=== PATIENT | female | born 1945 | race Caucasian/White ===

== ENCOUNTER 2018-02-25 16:21 | Inpatient (IN) ==
[2018-02-25] MEDS ORDERED: *HR* OxyCODONE Immed Rel 5 MG TABLET PO PRN (21:25)
[2018-02-25] MEDS ORDERED: Naloxone 0.4 MG/ML INJ IVP PRN (21:25)
[2018-02-25] MEDS ORDERED: Acetaminophen 325 MG TABLET PO PRN (21:25)
[2018-02-25] MEDS ORDERED: *HR* HYDROcodone/Acet 5/325 mg TABLET PO PRN (21:25)
[2018-02-25] MEDS: 0.9 % Sodium Chloride 1,000 ML IVC SCH (21:58)
--- NOTE | 2018-02-25 22:19 | Internal Med History&Physical ---
Date of Encounter: 02/25/18 Time of Encounter: 22:14 Internal Medicine - H&P: HPI Chief complaint: SOB, Fever, chills Admitted From: Emergency Dept Plans for Post Hospital Care: Home History of present illness: Ms. Deng is a 72 year old female with known PMH HTN, HLD, GERD, former smoker and COPD pt presented to [facility] ER with fever, chills, SOB and Rt side pleurisy chest pain from last 4 days. She had further work up done there which showed pneumonia and pt was transferred to our hospital for further care. Pt states she is feeling little better now , still having Rt side chest pain. Still has cough with yellowish expectoration. Past Med Surg Social Fam HX - Past Medical History Medical history: hyperlipidemia, hypertension, myocardial infarction, thyroid disease Psychiatric history: no psych history - Past Surgical History Surgical History: angioplasty/stent - Social History Smoking Status: Former smoker Alcohol use: none Drug use: none - Family History Mother Living Status: Hx Family Neurologic Disorders: Yes (CVA) Father Living Status: Cause of : brain bleed Hx Family Cancer: Yes (colon) Internal Medicine - H&P: Meds 3 Allergy/AdvReac Type Severity Reaction Status Date / Time No Known Allergies Allergy Verified 02/25/18 19:15 All Systems PM: A 10-system review of systems was performed and is negative for pertinent findings except as documented above in the HPI. Review of systems: All the systems are reviewed everything is benign except the systems and symptoms I mentioned in the history of present illness - Constitutional Vitals: Temp Pulse Resp BP Pulse Ox 97.6 F 80 16 109/61 97 02/25/18 19:22 02/25/18 19:22 02/25/18 19:22 02/25/18 19:22 02/25/18 19:22 General appearance: Present: A&O X 3, no acute distress, answers questions appropriately - Head Head exam: Present: atraumatic, normal inspection - Neck Neck exam general surgery: Present: supple - Respiratory Respiratory exam: Present: decreased breath sounds. Absent: rales, respiratory distress, rhonchi, wheezes - Cardiovascular Cardiovascular exam: Present: +S1, +S2. Absent: tachycardia - GI/Abdominal GI/Abdominal exam: Present: normal bowel sounds, soft. Absent: rebound, rigid, tenderness - Extremities Exam Extremities exam: Absent: calf tenderness, pedal edema, tenderness - Back Exam Back exam: Absent: CVA tenderness (L), CVA tenderness (R) - Neurological Exam Neurological exam: Present: alert, oriented X3 - Psychiatric Psychiatric exam: Present: normal affect, normal mood - Skin Skin exam: Absent: rash - Assessment and plan (1) Acute respiratory failure with hypoxia Current Visit: Yes Status: Acute Assessment and plan: Admit the pt into [facility] Surg Reviewed labs and ER records from [facility] unfortunately I do not have CXR film or official report WBC- 12.5 BUN/Cr: 28/.54 Started on Duoneb as BELEN Also started her on IV systemic steroids at low-dose I will check respiratory viral panel, step pneumonia, Legionella and sputum culture also started on empirical antibiotic with Levaquin (2) Pneumonia Current Visit: Yes Status: Acute Assessment and plan: Will try to obtain chest x-ray films from [facility] assuming Rt side PNA due to Rt pleurisy chest pain suspecting bacterial pneumonia continue empirical antibiotic Levaquin Qualifiers: Pneumonia type: due to unspecified organism Laterality: right Lung location: unspecified part of lung Qualified Code(s): J18.9 - Pneumonia, unspecified organism (3) HTN (hypertension) Current Visit: Yes Status: Acute Assessment and plan: Stable blood pressure resumed home medications Qualifiers: Hypertension type: essential hypertension Qualified Code(s): I10 - Essential (primary) hypertension (4) Hypothyroidism (acquired) Current Visit: Yes Status: Acute Assessment and plan: Resumed home dose of levothyroxine (5) HLD (hyperlipidemia) Current Visit: Yes Status: Acute Assessment and plan: Resumed home dose of statin Qualifiers: Hyperlipidemia type: unspecified Qualified Code(s): E78.5 - Hyperlipidemia , unspecified (6) Former smoker Current Visit: Yes Status: Acute Assessment and plan: Quit smoking 4 months ago (7) GERD (gastroesophageal reflux disease) Current Visit: Yes Status: Acute Assessment and plan: resumed home med Ranitidine Qualifiers: Esophagitis presence: without esophagitis Qualified Code(s): K21.9 - Gastro -esophageal reflux disease without esophagitis - Time Spent With Patient Total time spent is greater than 50% in coordination of care (as documented) at patient's floor/unit and/or counseling patient:
[2018-02-25] MEDS: MethylPREDNISolone 40 MG/ML VIAL IVP SCH (23:02)
[2018-02-25 23:44] LABS: Adenovirus Not Detected (Not Detect); Bordetella Pertussis Not Detected (Not Detect); Chlamydophila pneumoniae Not Detected (Not Detect); Coronavirus 229E Not Detected (Not Detect); Coronavirus HKU1 Not Detected (Not Detect); Coronavirus NL63 Not Detected (Not Detect); Coronavirus OC43 Not Detected (Not Detect); Human Metapneumovirus Not Detected (Not Detect); Human Rhinovirus/Enterovirus Not Detected (Not Detect); Influenza A Subtype 2009 H1 Not Detected (Not Detect); Influenza A Untypeable Not Detected (Not Detect); Influenza B Not Detected (Not Detect); Mycoplasma pneumoniae Not Detected (Not Detect); Parainfluenza Virus 1 Not Detected (Not Detect); Parainfluenza Virus 2 Not Detected (Not Detect); Parainfluenza Virus 3 Not Detected (Not Detect); Parainfluenza Virus 4 Not Detected (Not Detect); Respiratory Syncytial Virus Not Detected (Not Detect)
[2018-02-26] MEDS: Ipratropium/Albuterol Neb 3 ML IH SCH ×7 (04:31→23:49)
[2018-02-26] MEDS: *HR* Heparin 5,000 UNIT/ML VIAL SQ SCH ×2 (04:59→17:07)
[2018-02-26] MEDS: 0.9 % Sodium Chloride 1,000 ML IVC SCH ×2 (05:03→17:07)
[2018-02-26 06:01] LABS: Basophils % 0.1 %; Hematocrit 34.4 % (35.3-44.9); Hemoglobin 11.3 g/dL (11.5-15.4); Immature Granulocytes % 0.3 % (0-4); Lymphocytes # 1.1 K/mcL (0.6-4.6); Lymphocytes % 11.7 %; Mean Corpuscular HGB Conc 32.8 g/dL (31.6-35.5); Mean Corpuscular Hemoglobin 30.1 pg (28.0-33.3); Mean Corpuscular Volume 91.7 fL (83.0-100.0); Mean Platelet Volume 9.4 fL (9.4-12.4); Monocytes # 0.1 K/mcL (0.0-1.3); Monocytes % 1.2 %; Neutrophils # 7.9 K/mcL (1.6-8.9); Platelet Count 234 K/mcL (140-400); Red Blood Count 3.75 M/mcL (3.82-4.97); Red Cell Distribution Width 13.3 % (11.5-14.5); Segmented Neutrophils % 86.7 %
[2018-02-26 06:21] LABS: BUN/Creatinine Ratio 24 (6-26); Blood Urea Nitrogen 25 mg/dL (8-23); Calcium 8.8 mg/dL (8.6-10.3); Carbon Dioxide 20 mEq/L (23-29); Chloride 104 mEq/L (98-107); Chol/HDL Ratio 5.1 (0-4.9); Cholesterol 147 mg/dL (< 200); Glucose 184 mg/dL (70-105); HDL Cholesterol 29 mg/dL (40-59); LDL Cholesterol,Calculated 103 mg/dL (0-99); Osmolality,Calculated 279 (280-300); Sodium 130 mEq/L (136-145); Triglycerides 77 mg/dL (< 150); eGFR For African Americans > 60 (> 60); eGFR For Non-African Americans 51 (> 60)
[2018-02-26] MEDS ORDERED: Levofloxacin 750 MG/150 ML 750 MG/150 ML BAG IVPB SCH (09:00)
[2018-02-26] MEDS: MethylPREDNISolone 40 MG/ML VIAL IVP SCH ×3 (09:59→23:33)
--- NOTE | 2018-02-26 16:23 | Internal Med Progress Note ---
Date of Encounter: 02/26/18 Time of Encounter: 16:19 - Assessment and plan (1) Pneumonia Current Visit: Yes Status: Acute Assessment and plan: presented to OSH with shortness of breath, fever, chills. Chest CTA with diffuse RLL pneumonia. Respiratory PCR, urinary antigens negative. Symptoms improved with IV ATB and steroids. Continue IV Levaquin:, Steroids and bronchodilators. Sputum culture pending. De-escalate ATB as clinically improves and/or cultures finalize. Will need 2 month follow-up after pneumonia treated to confirm resolution of right lower lobe pneumonia Qualifiers: Pneumonia type: due to unspecified organism Laterality: right Lung location: unspecified part of lung Qualified Code(s): J18.9 - Pneumonia, unspecified organism (2) Acute respiratory failure with hypoxia Current Visit: Yes Status: Acute Assessment and plan: secondary to pneumonia. Chest CTA without evidence of pulmonary embolism. Does not wear oxygen at home. Continue treating pneumonia as noted above. Wean O2 as able. (3) Hilar mass Current Visit: Yes Status: Acute Assessment and plan: Chest CTA with area of infrahilar consolidation which has a masslike appearance measuring approximately 3.[address] once acute pneumonia resolved. (4) BOGDAN (acute kidney injury) Current Visit: Yes Status: Acute Assessment and plan: Cr 1.5; no known history of kidney disease. Suspect prerenal with decreased oral intake. Renal function normalized with IV fluids. Monitor repeat renal function especially with IV dye used with chest CTA. (5) HTN (hypertension) Current Visit: Yes Status: Acute Assessment and plan: per hx. BP controlled. Cont home BP medication. Qualifiers: Hypertension type: essential hypertension Qualified Code(s): I10 - Essential (primary) hypertension (6) Hypothyroidism (acquired) Current Visit: Yes Status: Acute Assessment and plan: per hx. Cont home levothyroxine (7) HLD (hyperlipidemia) Current Visit: Yes Status: Acute Assessment and plan: per hx. Cont home statin Qualifiers: Hyperlipidemia type: unspecified Qualified Code(s): E78.5 - Hyperlipidemia , unspecified (8) Former smoker Current Visit: Yes Status: Acute Assessment and plan: Quit smoking 4 months ago (9) GERD (gastroesophageal reflux disease) Current Visit: Yes Status: Acute Assessment and plan: per hx. Cont home Zantac Qualifiers: Esophagitis presence: without esophagitis Qualified Code(s): K21.9 - Gastro -esophageal reflux disease without esophagitis (10) DVT prophylaxis Current Visit: Yes Status: Acute Assessment and plan: heparin - Time Spent With Patient Total time spent is greater than 50% in coordination of care (as documented) at patient's floor/unit and/or counseling patient: - Subjective Interval history: Seen and examined at bedside. Patient is new to me, information obtained from chart review and patient report. Still with some shortness of breath but says she is overall significantly improved. No fevers or chills. Has a productive cough at times. Denies chest pain. - Constitutional Vitals: Temp Pulse Resp BP Pulse Ox 97.7 F 91 14 125/67 100 02/26/18 16:09 02/26/18 16:09 02/26/18 16:09 02/26/18 16:09 02/26/18 16:09 General appearance: Present: A&O X 3, no acute distress, answers questions appropriately - Head Head exam: Present: atraumatic, normocephalic - Eye Eye exam: Present: PERRL, conjuntiva pink, sclera anicteric Pupils: Present: PERRL - Neck Neck exam general surgery: Present: supple, trachea midline. Absent: lymphadenopathy - Respiratory Respiratory exam: Present: CTAB, rhonchi. Absent: accessory muscle use, rales, wheezes - Cardiovascular Cardiovascular exam: Present: RRR, +S1, +S2. Absent: diastolic murmur, gallop, rubs, systolic murmur - GI/Abdominal GI/Abdominal exam: Present: normal bowel sounds, soft, no peritoneal signs. Absent: distended, tenderness - Extremities Exam Extremities exam: Present: warm, radial pulses palpable and symmetrical. Absent : calf tenderness, cyanotic, pedal edema - Neurological Exam Neurological exam: Present: CN II-XII intact, oriented X3, no focal deficits. Absent: pronater drift, facial droop, speech deficit - Skin Skin exam: Present: dry, intact Internal Medicine: Result - Labs CBC & Chem 7: 02/26/18 05:45 02/26/18 05:45 Labs: Short CBC 02/26/18 Range/Units 05:45 WBC 9.1 (4.3-11.1) K/mcL Hgb 11.3 L (11.5-15.4) g/dL Hct 34.4 L (35.3-44.9) % Plt Count 234 (140-400) K/mcL Neutrophils # 7.9 (1.6-8.9) K/mcL BMP 02/26/18 05:45 Sodium 130 L Potassium 4.0 Chloride 104 Carbon Dioxide 20 L BUN 25 H Creatinine 1.06 Glucose 184 H Calcium 8.8 - Impressions Impressions Chest CTA 02/26/18 11:46 IMPRESSION: 1. No evidence for acute pulmonary embolism. 2. Patchy consolidation and ground-glass attenuation representing combination of pneumonia and atelectasis noted in the right lower lobe diffusely. Medially in the infrahilar region, there is a component of the consolidation which has a mass-like appearance, measuring about 3.3 cm. Review on follow-up studies. RECOMMENDATIONS: Recommend two-month follow-up after treatment to confirm resolution of right lower lobe findings. D/ / 02/26/2018 14:18:38 Jeremias Toledo MD / [facility] Interpreting Provider: Jeremias Toledo MD Consult Discharge Plan - Plan Referrals: Hebert Ryan DO [Primary Care Provider] - Mounika Townsend MD [Family Provider] -
[2018-02-27] MEDS: Ipratropium/Albuterol Neb 3 ML IH SCH ×6 (03:29→23:23)
[2018-02-27] MEDS: 0.9 % Sodium Chloride 1,000 ML IVC SCH ×2 (06:06→20:09)
[2018-02-27] MEDS: *HR* Heparin 5,000 UNIT/ML VIAL SQ SCH ×2 (06:06→17:16)
[2018-02-27 06:49] LABS: BUN/Creatinine Ratio 23 (6-26); Blood Urea Nitrogen 23 mg/dL (8-23); Calcium 8.7 mg/dL (8.6-10.3); Carbon Dioxide 18 mEq/L (23-29); Chloride 106 mEq/L (98-107); Glucose 136 mg/dL (70-105); Osmolality,Calculated 282 (280-300); Sodium 133 mEq/L (136-145); eGFR For African Americans > 60 (> 60); eGFR For Non-African Americans 54 (> 60)
[2018-02-27 07:07] LABS: Hematocrit 31.9 % (35.3-44.9); Hemoglobin 10.3 g/dL (11.5-15.4); Mean Corpuscular HGB Conc 32.3 g/dL (31.6-35.5); Mean Corpuscular Hemoglobin 29.9 pg (28.0-33.3); Mean Corpuscular Volume 92.5 fL (83.0-100.0); Mean Platelet Volume 9.6 fL (9.4-12.4); Platelet Count 297 K/mcL (140-400); Red Blood Count 3.45 M/mcL (3.82-4.97); Red Cell Distribution Width 13.8 % (11.5-14.5)
[2018-02-27] MEDS: MethylPREDNISolone 40 MG/ML VIAL IVP SCH ×3 (08:43→23:44)
[2018-02-27] MEDS: Aspirin Enteric Coated 81 MG Tablet PO SCH (08:43)
[2018-02-27] MEDS: amLODIPine 5 MG TABLET PO SCH (08:44)
[2018-02-27] MEDS: Famotidine 20 MG TABLET PO SCH (08:44)
[2018-02-27] MEDS: BuPROPion XL (24 HR) 150 MG TABLET PO SCH (08:44)
--- NOTE | 2018-02-27 12:30 | Internal Med Progress Note ---
Date of Encounter: 02/27/18 Time of Encounter: 12:30 - Assessment and plan (1) Pneumonia Current Visit: Yes Status: Acute Assessment and plan: Originally presented with shortness of breath fevers and chills presently denies any shortness of breath or cough. Chest CT did show diffuse right lower lobe pneumonia respiratory panels are negative urinary antigens are negative continue with IV antibiotics and steroids. White count was elevated today at 17 I suspect this is related to steroid use. We will continue to monitor. Sputum culture with no growth. Awaiting blood cultures Oxygen as needed to maintain SPO2 greater than 92% Qualifiers: Pneumonia type: due to unspecified organism Laterality: right Lung location: unspecified part of lung Qualified Code(s): J18.9 - Pneumonia, unspecified organism (2) Acute respiratory failure with hypoxia Current Visit: Yes Status: Acute Assessment and plan: Secondary to pneumonia chest CTA without any evidence of pulmonary embolism. We will continue with oxygen titrated maintain sats greater than 92%. (3) HTN (hypertension) Current Visit: Yes Status: Acute Assessment and plan: Presently controlled we will continue with home medications Qualifiers: Hypertension type: essential hypertension Qualified Code(s): I10 - Essential (primary) hypertension (4) Hypothyroidism (acquired) Current Visit: Yes Status: Acute Assessment and plan: Continue with home medication Synthroid (5) HLD (hyperlipidemia) Current Visit: Yes Status: Acute Assessment and plan: Continue with home medications Qualifiers: Hyperlipidemia type: unspecified Qualified Code(s): E78.5 - Hyperlipidemia , unspecified (6) Former smoker Current Visit: Yes Status: Acute Assessment and plan: Quit smoking 4 months ago (7) GERD (gastroesophageal reflux disease) Current Visit: Yes Status: Acute Assessment and plan: Cont home Zantac Qualifiers: Esophagitis presence: without esophagitis Qualified Code(s): K21.9 - Gastro -esophageal reflux disease without esophagitis (8) BOGDAN (acute kidney injury) Current Visit: Yes Status: Acute Assessment and plan: Renal function improving with IV fluids. Initially creatinine 1.5 no history of kidney disease most likely related to prerenal and decreased oral intake. We will continue to closely monitor renal function since patient did receive IV dye from chest CTA (9) Hilar mass Current Visit: Yes Status: Acute Assessment and plan: Chest CTA did reveal area of infra hilar consolidation which has a masslike appearance measuring Pete 3.[address] once acute pneumonia has resolved in approximately 2 months I did discuss this with the patient. Verbalized understanding and will follow-up with PCP as outpatient (10) DVT prophylaxis Current Visit: Yes Status: Acute Assessment and plan: heparin subcutaneous - Time Spent With Patient Total time spent is greater than 50% in coordination of care (as documented) at patient's floor/unit and/or counseling patient: - Subjective Interval history: Patient is new to me I did review records. I examined patient at bedside. She denies any cough or SOB at this time . - Constitutional Vitals: Temp Pulse Resp BP Pulse Ox 97.6 F 70 18 149/82 96 02/27/18 10:49 02/27/18 10:49 02/27/18 10:49 02/27/18 10:49 02/27/18 10:49 General appearance: Present: A&O X 3, no acute distress, answers questions appropriately - Head Head exam: Present: atraumatic, normocephalic - Eye Eye exam: Present: PERRL, conjuntiva pink, sclera anicteric Pupils: Present: PERRL - Neck Neck exam general surgery: Present: supple, trachea midline. Absent: lymphadenopathy - Respiratory Respiratory exam: Present: rales. Absent: accessory muscle use, rhonchi, wheezes - Cardiovascular Cardiovascular exam: Present: RRR, +S1, +S2. Absent: diastolic murmur, gallop, rubs, systolic murmur - GI/Abdominal GI/Abdominal exam: Present: normal bowel sounds, soft, no peritoneal signs. Absent: distended, tenderness - Extremities Exam Extremities exam: Present: warm, radial pulses palpable and symmetrical. Absent : calf tenderness, cyanotic, pedal edema - Neurological Exam Neurological exam: Present: CN II-XII intact, oriented X3, no focal deficits. Absent: pronater drift, facial droop, speech deficit - Skin Skin exam: Present: dry, intact Internal Medicine: Result - Labs CBC & Chem 7: 02/27/18 06:02 02/27/18 06:02 Labs: Short CBC 02/27/18 Range/Units 06:02 WBC 17.8 H D (4.3-11.1) K/mcL Hgb 10.3 L (11.5-15.4) g/dL Hct 31.9 L (35.3-44.9) % Plt Count 297 (140-400) K/mcL BMP 02/27/18 06:02 Sodium 133 L Potassium 4.0 Chloride 106 Carbon Dioxide 18 L BUN 23 Creatinine 1.01 Glucose 136 H Calcium 8.7 - Impressions Impressions Chest CTA 02/26/18 11:46 IMPRESSION: 1. No evidence for acute pulmonary embolism. 2. Patchy consolidation and ground-glass attenuation representing combination of pneumonia and atelectasis noted in the right lower lobe diffusely. Medially in the infrahilar region, there is a component of the consolidation which has a mass-like appearance, measuring about 3.3 cm. Review on follow-up studies. RECOMMENDATIONS: Recommend two-month follow-up after treatment to confirm resolution of right lower lobe findings. D/ / 02/26/2018 14:18:38 [facility] Inter[facility]ting Provider: Jeremias Toledo MD Consult Discharge Plan - Plan Referrals: Mounika Townsend MD [Family Provider] - Hebert Ryan DO [Primary Care Provider] -
[2018-02-27] MEDS ORDERED: Simethicone 80 MG TAB.CHEW PO PRN (16:06)
[2018-02-27] MEDS ORDERED: *HR* LORazepam 2 MG/ML VIAL IVP ONE (23:38)
[2018-02-28] MEDS: Ipratropium/Albuterol Neb 3 ML IH SCH ×6 (04:18→23:33)
[2018-02-28] MEDS: *HR* Heparin 5,000 UNIT/ML VIAL SQ SCH ×2 (07:51→17:04)
[2018-02-28] MEDS: MethylPREDNISolone 40 MG/ML VIAL IVP SCH ×3 (08:00→23:19)
[2018-02-28] MEDS: 0.9 % Sodium Chloride 1,000 ML IVC SCH ×2 (08:00→23:18)
[2018-02-28] MEDS: Levofloxacin 750 MG/150 ML 750 MG/150 ML BAG IVPB SCH (08:01)
[2018-02-28] MEDS: BuPROPion XL (24 HR) 150 MG TABLET PO SCH (08:01)
[2018-02-28] MEDS: Aspirin Enteric Coated 81 MG Tablet PO SCH (08:01)
[2018-02-28] MEDS: amLODIPine 5 MG TABLET PO SCH (08:01)
[2018-02-28] MEDS: Famotidine 20 MG TABLET PO SCH (08:01)
[2018-02-28 11:37] LABS: Basophils % 0.1 %; Hematocrit 34.7 % (35.3-44.9); Hemoglobin 11.5 g/dL (11.5-15.4); Immature Granulocytes % 0.8 % (0-4); Lymphocytes # 1.6 K/mcL (0.6-4.6); Lymphocytes % 10.8 %; Mean Corpuscular HGB Conc 33.1 g/dL (31.6-35.5); Mean Corpuscular Hemoglobin 30.3 pg (28.0-33.3); Mean Corpuscular Volume 91.6 fL (83.0-100.0); Mean Platelet Volume 9.1 fL (9.4-12.4); Monocytes # 0.7 K/mcL (0.0-1.3); Neutrophils # 12.2 K/mcL (1.6-8.9); Nucleated Red Blood Cells 0.1 /100 WBC (0); Platelet Count 360 K/mcL (140-400); Red Blood Count 3.79 M/mcL (3.82-4.97); Red Cell Distribution Width 13.7 % (11.5-14.5); Segmented Neutrophils % 83.3 %
[2018-02-28 11:54] LABS: BUN/Creatinine Ratio 21 (6-26); Blood Urea Nitrogen 18 mg/dL (8-23); Calcium 8.8 mg/dL (8.6-10.3); Carbon Dioxide 23 mEq/L (23-29); Chloride 102 mEq/L (98-107); Glucose 86 mg/dL (70-105); Osmolality,Calculated 277 (280-300); Potassium 3.8 mEq/L (3.5-5.1); Sodium 133 mEq/L (136-145); eGFR For African Americans > 60 (> 60); eGFR For Non-African Americans > 60 (> 60)
[2018-02-28 15:27] LABS: ABG Base Excess -3 mEq/L (-2 to 3); ABG HCO3 21 mEq/L (21-27); ABG Oxygen Saturation 95 % (95-98); ABG PCO2 32 mmHg (35-45); ABG PH 7.43 pH Units (7.32-7.45); ABG PO2 72 mmHg (85-104); ABG TCO2 22 mEq/L (20-26)
[2018-02-28 15:54] LABS: Bilirubin,Urine Negative (Negative); Blood,Urine Negative (Negative); Clarity,Urine Clear (Clear); Color,Urine Yellow (Yellow); Glucose,Urine (UA) Normal (Normal); Ketones,Urine Negative (Negative); Leukocyte Esterase,Urine Negative (Negative); Nitrite,Urine Negative (Negative); PH,Urine 6.5 pH Units (5.0-8.0); Protein,Urine 100 mg/dL (Neg-Trace); Specific Gravity,Urine 1.018 (1.010-1.025); Urobilinogen,Urine Normal (Normal)
[2018-02-28 15:56] LABS: Bacteria,Urine None Seen per hpf (None-Few); Hyaline Casts,Urine None Seen per lpf (None-Few); RBC,Urine 0-3 per hpf (0-3); Squamous Epithelial Cell,Urine Moderate per lpf (None-Few); WBC,Urine 0-3 per hpf (0-3)
--- NOTE | 2018-02-28 17:39 | Internal Med Progress Note ---
Date of Encounter: 02/28/18 Time of Encounter: 17:38 - Assessment and plan (1) Pneumonia Current Visit: Yes Status: Acute Assessment and plan: Originally presented with shortness of breath fevers and chills presently denies any chills or fevers. She does have a moist cough with green to yellow sputum Chest CT did show diffuse right lower lobe pneumonia respiratory panels are negative urinary antigens are negative continue with IV antibiotics and steroids. White count was elevated today at 17 I suspect this is related to steroid use. We will continue to monitor. Sputum culture with no growth. Awaiting blood cultures Patient did have episodes of hypoxia-despite oxygen use. ABG was obtained. We did increase oxygen continue to titrate oxygen to maintain SPO2 greater than 92 % I did consult pulmonology patient will be nothing by mouth after midnight for bronchoscopy in the a.m. Qualifiers: Pneumonia type: due to unspecified organism Laterality: right Lung location: unspecified part of lung Qualified Code(s): J18.9 - Pneumonia, unspecified organism (2) Acute respiratory failure with hypoxia Current Visit: Yes Status: Acute Assessment and plan: Secondary to pneumonia/ COPD-patient is a smoker has not been officially diagnosed-continue with oxygen titrated maintain SPO2 greater than 92%. We will consult pulmonology (3) HTN (hypertension) Current Visit: Yes Status: Acute Assessment and plan: Presently controlled we will continue with home medications Qualifiers: Hypertension type: essential hypertension Qualified Code(s): I10 - Essential (primary) hypertension (4) Hypothyroidism (acquired) Current Visit: Yes Status: Acute Assessment and plan: Continue with home medication Synthroid (5) HLD (hyperlipidemia) Current Visit: Yes Status: Acute Assessment and plan: Continue with home medications Qualifiers: Hyperlipidemia type: unspecified Qualified Code(s): E78.5 - Hyperlipidemia , unspecified (6) Former smoker Current Visit: Yes Status: Acute Assessment and plan: Quit smoking 4 months ago (7) GERD (gastroesophageal reflux disease) Current Visit: Yes Status: Acute Assessment and plan: Cont home Zantac Qualifiers: Esophagitis presence: without esophagitis Qualified Code(s): K21.9 - Gastro -esophageal reflux disease without esophagitis (8) BOGDAN (acute kidney injury) Current Visit: Yes Status: Acute Assessment and plan: Renal function improved Initially creatinine 1.5 no history of kidney disease most likely related to prerenal and decreased oral intake. We will continue to closely monitor renal function since patient did receive IV dye from chest CTA (9) Hilar mass Current Visit: Yes Status: Acute Assessment and plan: Chest CTA did reveal area of infra hilar consolidation which has a masslike appearance measuring Pete 3.[address] once acute pneumonia has resolved in approximately 2 months. I did consult pulmonology concerning hypoxia and updated on findings of mass. Patient will be nothing by mouth after midnight for bronchoscopy (10) DVT prophylaxis Current Visit: Yes Status: Acute Assessment and plan: heparin subcutaneous - Time Spent With Patient Total time spent is greater than 50% in coordination of care (as documented) at patient's floor/unit and/or counseling patient: - Subjective Interval history: Patient was seen earlier in the morning. At that time she was alert and appropriate following simple commands. I was called by nursing staff patient was confused thinking that there are children in the hallway fighting attempting to climb out of bed. Patient is on 2 L nasal cannula I did recheck SPO2 and she was 90-92%. Neuro exam was completed which was intact no focal deficits noted. No recent falls. I obtain ABG which did show hypoxia pH was 7.43 PCO2 is 32 PO2 was 72. Lung sounds with faint crackles in bases I did increase oxygen with Dr. Conde we will see patient upon consult I did update patient's family who is at bedside as well as patient of treatment plan which they verbalized understanding. - Constitutional Vitals: Temp Pulse Resp BP Pulse Ox 97.7 F 76 20 139/85 93 02/28/18 15:49 02/28/18 15:49 02/28/18 16:12 02/28/18 15:49 02/28/18 16:12 General appearance: Present: A&O X 3, no acute distress, answers questions appropriately - Head Head exam: Present: atraumatic, normocephalic - Eye Eye exam: Present: PERRL, conjuntiva pink, sclera anicteric Pupils: Present: PERRL - Neck Neck exam general surgery: Present: supple, trachea midline. Absent: lymphadenopathy - Respiratory Respiratory exam: Present: rales. Absent: accessory muscle use, rhonchi, wheezes - Cardiovascular Cardiovascular exam: Present: RRR, +S1, +S2. Absent: diastolic murmur, gallop, rubs, systolic murmur - GI/Abdominal GI/Abdominal exam: Present: normal bowel sounds, soft, no peritoneal signs. Absent: distended, tenderness - Extremities Exam Extremities exam: Present: warm, radial pulses palpable and symmetrical. Absent : calf tenderness, cyanotic, pedal edema - Neurological Exam Neurological exam: Present: CN II-XII intact, oriented X3, no focal deficits. Absent: pronater drift, facial droop, speech deficit - Skin Skin exam: Present: dry, intact Internal Medicine: Result - Labs CBC & Chem 7: 02/28/18 10:48 02/28/18 10:48 Labs: Short CBC 02/28/18 Range/Units 10:48 WBC 14.7 H (4.3-11.1) K/mcL Hgb 11.5 (11.5-15.4) g/dL Hct 34.7 L (35.3-44.9) % Plt Count 360 (140-400) K/mcL Neutrophils # 12.2 H (1.6-8.9) K/mcL BMP 02/28/18 10:48 Sodium 133 L Potassium 3.8 Chloride 102 Carbon Dioxide 23 BUN 18 Creatinine 0.86 Glucose 86 Calcium 8.8 Urine 02/28/18 Range/Units 15:44 Urine Color Yellow (Yellow) Urine Clarity Clear (Clear) Urine pH 6.5 (5.0-8.0) pH Units Ur Specific Reserve 1.018 (1.010-1.025) Urine Protein 100 H (Neg-Trace) mg/dL Urine Glucose (UA) Normal (Normal) mg/dL - ABG Interpretation ABG results: ABG ABG pH 7.43 pH Units (7.32-7.45) 02/28/18 15:23 ABG pCO2 32 mmHg (35-45) L 02/28/18 15:23 ABG pO2 72 mmHg (85-104) L 02/28/18 15:23 ABG O2 Saturation 95 % (95-98) 02/28/18 15:23 Consult Discharge Plan - Plan Referrals: Hebert Ryan DO [Primary Care Provider] - 03/09/18 10:30 am
[2018-03-01] MEDS: Ipratropium/Albuterol Neb 3 ML IH SCH ×6 (03:47→23:58)
[2018-03-01 04:45] LABS: Basophils % 0.2 %; Hematocrit 35.1 % (35.3-44.9); Hemoglobin 11.8 g/dL (11.5-15.4); Lymphocytes % 14.9 %; Mean Corpuscular HGB Conc 33.6 g/dL (31.6-35.5); Mean Corpuscular Hemoglobin 30.5 pg (28.0-33.3); Mean Corpuscular Volume 90.7 fL (83.0-100.0); Mean Platelet Volume 8.8 fL (9.4-12.4); Monocytes # 0.5 K/mcL (0.0-1.3); Monocytes % 3.4 %; Neutrophils # 10.8 K/mcL (1.6-8.9); Platelet Count 344 K/mcL (140-400); Red Blood Count 3.87 M/mcL (3.82-4.97); Red Cell Distribution Width 13.7 % (11.5-14.5); Segmented Neutrophils % 80.5 %
[2018-03-01 04:47] LABS: INR 1.2; Prothrombin Time 13.5 Seconds (9.4-12.1)
[2018-03-01 04:50] LABS: Activated Partial Thrombo Time 30.8 Seconds (26.0-36.0)
[2018-03-01 05:07] LABS: BUN/Creatinine Ratio 21 (6-26); Blood Urea Nitrogen 20 mg/dL (8-23); Calcium 8.7 mg/dL (8.6-10.3); Carbon Dioxide 23 mEq/L (23-29); Chloride 101 mEq/L (98-107); Glucose 127 mg/dL (70-105); Osmolality,Calculated 278 (280-300); Potassium 3.9 mEq/L (3.5-5.1); Sodium 132 mEq/L (136-145); eGFR For African Americans > 60 (> 60); eGFR For Non-African Americans 57 (> 60)
[2018-03-01] MEDS: *HR* Heparin 5,000 UNIT/ML VIAL SQ SCH ×2 (05:46→17:25)
--- NOTE | 2018-03-01 07:22 | Pulmonology Consult Note ---
Date of Encounter: 03/01/18 Time of Encounter: 06:50 Assessment and Plan (1) Hilar mass Current Visit: Yes Status: Acute I have reviewed CT chest results report with the patient and I am concerned about abnormality and since she has significant smoking history malignancies in the differential diagnosis. Patient understand that and we discussed bronchoscopy versus monitoring and outpatient follow-up, however I recommended bronchoscopy and she understand and agree with that. I have explained to him all the risks, alternative, benefits of the procedure. I also think this could be a postobstructive pneumonia and airway inspection is warranted. Otherwise continue current treatment and patient will need outpatient workup for COPD. Thank you very much for the consultation. (2) Emphysema of lung Current Visit: Yes Status: Chronic Qualifiers: Emphysema type: centrilobular Qualified Code(s): J43.2 - Centrilobular emphysema (3) Pneumonia Current Visit: Yes Status: Acute Qualifiers: Pneumonia type: due to unspecified organism Laterality: right Lung location: unspecified part of lung Qualified Code(s): J18.9 - Pneumonia, unspecified organism (4) Acute respiratory failure with hypoxia Current Visit: Yes Status: Acute Patient is on oxygen to keep SPO2 around 90% History of Present Illness Consult date: 03/01/18 Requesting physician: Cathy West Reason for consult: COPD, hypoxemia, abnormal CXR/CT Chief complaint: Shortness of breath with fever History of present illness: This is very pleasant 72-year-old female with significant smoking history and recently quit presented to the hospital having shortness of breath with fever and chills and right-sided chest pain for about 4 days before admission. Patient had CT chest with evidence of pneumonia and questionable mass in the right side. Patient also has evidence of emphysema. Patient denies any history of significant hemoptysis and denies any history of lung cancer. She is not sure about weight loss and she is being on oxygen since admission. She stated her sputum is yellowish and have some improvement on current treatment. Past Med Surg Social Fam HX - Past Medical History Medical history: hyperlipidemia, hypertension, myocardial infarction, thyroid disease Psychiatric history: no psych history - Past Surgical History Surgical History: angioplasty/stent - Social History Smoking Status: Former smoker Alcohol use: none Drug use: none - Family History Mother Living Status: Hx Family Neurologic Disorders: Yes (CVA) Father Living Status: Cause of : brain bleed Hx Family Cancer: Yes (colon) Medications and Allergies Aspirin [Adult Aspirin Regimen] 81 mg PO DAILY 02/25/18 [History] Levothyroxine [Synthroid] 50 mcg PO DAILY 02/25/18 [History] Metoprolol Tartrate [Lopressor] 50 mg PO BID 02/25/18 [History] Nitroglycerin [Nitrostat] 0.4 mg SL Q5MIN 02/25/18 [History] Pravastatin Sodium [Pravachol] 20 mg PO HS 02/25/18 [History] Sertraline [Zoloft] 100 mg PO DAILY 02/25/18 [History] amLODIPine [Norvasc] 2.5 mg PO DAILY 02/25/18 [History] buPROPion HCl [Bupropion HCl ER] 300 mg PO DAILY 02/25/18 [History] raNITIdine HCl [Ranitidine HCl] 300 mg PO DAILY 02/25/18 [History] Mirtazapine [Remeron] 30 mg PO HS 02/26/18 [History] 3 Allergy/AdvReac Type Severity Reaction Status Date / Time No Known Allergies Allergy Verified 02/25/18 19:15 All Systems: The remainder of the systems were reviewed and are negative Physical Examination Vital Signs: Vital Signs, Last 4 Hours Temp Pulse Resp BP Pulse Ox 03/01/18 07:05 98.1 F 72 15 152/77 94 03/01/18 03:58 98.1 F 82 18 158/81 91 03/01/18 03:47 16 95 General appearance: no acute distress Eyes: nonicteric ENT: oropharynx moist Neck: supple Effort: normal Inspection: hyperextended Auscultation: right: rhonchi, bilateral: diminished breath sounds Percussion: bilateral: not dull Cardiovascular: regular rate and rhythm Gastrointestinal: normoactive bowel sounds, non-distended Extremities: no cyanosis normal mental status, non-focal exam mood appropriate Results - Laboratory Findings CBC and BMP: 03/01/18 04:16 03/01/18 04:16 ABG ABG pH 7.43 pH Units (7.32-7.45) 02/28/18 15:23 ABG pCO2 32 mmHg (35-45) L 02/28/18 15:23 ABG pO2 72 mmHg (85-104) L 02/28/18 15:23 ABG O2 Saturation 95 % (95-98) 02/28/18 15:23 PT/INR, D-dimer PT 13.5 Seconds (9.4-12.1) H 03/01/18 04:16 Abnormal lab findings: Abnormal lab results WBC 13.5 K/mcL (4.3-11.1) H 03/01/18 04:16 Hct 35.1 % (35.3-44.9) L 03/01/18 04:16 MPV 8.8 fL (9.4-12.4) L 03/01/18 04:16 Neutrophils # 10.8 K/mcL (1.6-8.9) H 03/01/18 04:16 Nucleated RBCs/100 WBC 0.1 /100 WBC (0) H 02/28/18 10:48 PT 13.5 Seconds (9.4-12.1) H 03/01/18 04:16 ABG pCO2 32 mmHg (35-45) L 02/28/18 15:23 ABG pO2 72 mmHg (85-104) L 02/28/18 15:23 ABG Base Excess -3 mEq/L (-2 to 3) L 02/28/18 15:23 Sodium 132 mEq/L (136-145) L 03/01/18 04:16 Est GFR (Non-Af Amer) 57 (> 60) L 03/01/18 04:16 Glucose 127 mg/dL (70-105) H 03/01/18 04:16 Calculated Osmolality 278 (280-300) L 03/01/18 04:16 LDL Cholesterol, Calc 103 mg/dL (0-99) H 02/26/18 05:45 HDL Cholesterol 29 mg/dL (40-59) L 02/26/18 05:45 Cholesterol/HDL Ratio 5.1 (0-4.9) H 02/26/18 05:45 Urine Protein 100 mg/dL (Neg-Trace) H 02/28/18 15:44 Ur Squamous Epith Cells Moderate per lpf (None-Few) H 02/28/18 15:44 - Microbiology Findings Microbiology Findings: Microbiology, Last 48 Hours 02/26/18 03:14 Sputum Culture - Final Sputum - Diagnostic Findings CT scan - chest: report reviewed, image reviewed - Clinical Findings Intake & Output: Intake & Output 02/28/18 02/28/18 03/01/18 15:59 23:59 07:59 Intake Total 1000 / 1000 1000 / 1000 0 / 0 Output Total 950 / 950 1400 / 1400 Balance 1000 / 1000 50 / 50 -1400 / -1400 Consult Discharge Plan - Plan Referrals: Hebert Ryan DO [Primary Care Provider] - 03/09/18 10:30 am
[2018-03-01] MEDS: MethylPREDNISolone 40 MG/ML VIAL IVP SCH ×3 (08:18→23:47)
[2018-03-01] MEDS: amLODIPine 5 MG TABLET PO SCH (08:19)
[2018-03-01] MEDS ORDERED: *HR* FentaNYL (PF) 100 MCG/2 ML VIAL IVP ONE (09:09)
[2018-03-01] MEDS ORDERED: *HR* EPINEPHrine 1 MG/10 ML SYRINGE INTRATRACH PRN (09:09)
[2018-03-01] MEDS ORDERED: *HR* Midazolam HCl 2 MG/2 ML VIAL IVP ONE (09:09)
[2018-03-01] MEDS ORDERED: Albuterol 2.5 MG/3 ML NEBULIZER IH ONE (09:09)
[2018-03-01] MEDS ORDERED: Tetracaine/Benzocaine/Butamben 200MG/SPRAY (100SPY/BOT) MM ONE (09:09)
--- NOTE | 2018-03-01 09:11 | Pre-Sedation Evaluation ---
Pre-sedation evaluation - Pre-sedation checklist Date of procedure: 03/01/18 Procedure: Bronchoscopy Recent Vitals: Last Vital Signs Temp 98.1 F 03/01/18 07:05 Pulse 72 03/01/18 07:05 Resp 20 03/01/18 07:22 BP 152/77 03/01/18 07:05 Pulse Ox 96 03/01/18 07:22 H&P (including ROS) documented in medical record: Yes Dietary Status: NPO after Midnight Possible difficult airway: No ASA Classification *see protocol: CLASS III-Severe systemic disease Plan of Care: Pt appropriate candidate for procedure/moderate/conscious sedation , Risks/benefits of procedure/sedation discussed w/ patient/family
[2018-03-01] MEDS ORDERED: 0.9 % Sodium Chloride 1,000 ML IVC SCH (09:15)
[2018-03-01] MEDS ORDERED: *HR* Midazolam HCl 5 MG/5 ML VIAL IVP ONE (09:20)
[2018-03-01] MEDS ORDERED: *HR* FentaNYL (PF) 100 MCG/2 ML VIAL ONE (09:20)
[2018-03-01] MEDS ORDERED: Lidocaine Viscous Oral Soln 15 ML SOLUTION ONE (09:21)
[2018-03-01] MEDS ORDERED: Ipratropium/Albuterol Neb 3 ML ONE (09:21)
[2018-03-01] MEDS ORDERED: amLODIPine 5 MG TABLET PO ONE (11:48)
[2018-03-01] MEDS: Aspirin Enteric Coated 81 MG Tablet PO SCH (14:37)
[2018-03-01] MEDS: Famotidine 20 MG TABLET PO SCH (14:37)
[2018-03-01] MEDS: BuPROPion XL (24 HR) 150 MG TABLET PO SCH (14:37)
[2018-03-01 15:46] LABS: Source of Body Fluid RLL BAL
[2018-03-01 17:14] LABS: Appearance of Body Fluid Cloudy (Clear); Volume of Body Fluid 23 mL
--- NOTE | 2018-03-01 18:46 | Oncology Inp Consult Note ---
<Annmarie Lazo L - Last Filed: 03/02/18 10:15> Date of Encounter: 03/01/18 Time of Encounter: 17:00 Assessment and Plan (1) Hilar mass Status: Acute Assessment and plan: S/P bronchoscopy today which revealed narrowing in the right lower lobe with malignant appearance, extrinsic compression secondary to the mass, obstructive right lower lobe pneumonia with mucous plugging again likely secondary to mass effect, PREM of the right hilum specimen is suggestive of malignancy. Currently awaiting final report from BAL, biopsy, culture and cytology reports. Pnuemonia treatment per primary team with Levaquin, steroids and duonebs. O2 therapy is new for her, may require home O2 referral if she is unable to wean during her hospital stay. Dr. Schwab discussed bronchoscopy results as detailed above with patient and patients family at today's visit. We discussed further staging workup which will need to be completed on an outpatient basis with PET/CT. Following PET, further discussion on treatment approach, prognosis and general course of disease will be discussed once final pathology report is also obtained. This will again be done on a outpatient basis. Will arrange for PET/CT and follow up with Dr. Schwab end of next week. Please refer to Dr. Schwab's attestation below for additional details. - Data of Consult Patient: new to practice Consult date: 03/01/18 Requesting Physician: Aarti Moore CNP Primary Care Provider: Hebert Redding Provider: Mounika Townsend MD - Consult Narrative Reason for consult: Right lower lobe lung mass History of present illness: Ms. Deng is a 72 year old female with past medical history significant for HTN, HLD, GERD, former smoker and COPD. She initially presented to [facility] ER with complaints of fever, chills, SOB and right sided chest pain consistent with pleurisy for about 4 days prior to her presentation. According to records she had imaging at [facility] which had revealed pneumonia, she was then transferred to [facility] on 02/25/2018 for further care. CTA revealed a patchy consolidation and consistent with pneumonia/atelectasis in the right lower lobe diffusely. Medially in the infrahilar region, there is a component of the consolidation which has a mass-like appearance, measuring about 3.3 cm. During her stay she had pulmonology consultation with recommendation for bronchoscopy. Her bronchoscopy today which revealed narrowing in the right lower lobe with malignant appearance, extrinsic compression secondary to the mass, obstructive right lower lobe pneumonia with mucous plugging again likely secondary to mass effect, PREM of the right hilum specimen is suggestive of malignancy. Currently awaiting final report from BAL, biopsy, culture and cytology reports. Ms. Deng has had issues with pulmonary infections since about November of this year. She does recently report an increase in her fatigue and shortness of breath. She has a chronic non-productive cough, she denies hemoptysis prior to today which was mild following her bronchoscopy. She reports weight loss of about 25 pounds following her pneumonia in November however she has gained back this weight since being on steroids. She is on oxygen therapy which is new for her. She is fatigued and short of breath quite easily, she reports she is unable to walk a full flight of steps and needs to stop taking a rest break after about 5 steps. She is a former smoker. Past Med Surg Social Fam HX - Past Medical History Medical history: hyperlipidemia, hypertension, myocardial infarction, thyroid disease Psychiatric history: no psych history - Past Surgical History Surgical History: angioplasty/stent - Social History Smoking Status: Former smoker Alcohol use: none Drug use: none - Family History Mother Living Status: Hx Family Neurologic Disorders: Yes (CVA) Father Living Status: Cause of : brain bleed Hx Family Cancer: Yes (colon) Medications and Allergies Aspirin [Adult Aspirin Regimen] 81 mg PO DAILY 02/25/18 [History] Levothyroxine [Synthroid] 50 mcg PO DAILY 02/25/18 [History] Metoprolol Tartrate [Lopressor] 50 mg PO BID 02/25/18 [History] Nitroglycerin [Nitrostat] 0.4 mg SL Q5MIN 02/25/18 [History] Pravastatin Sodium [Pravachol] 20 mg PO HS 02/25/18 [History] Sertraline [Zoloft] 100 mg PO DAILY 02/25/18 [History] amLODIPine [Norvasc] 2.5 mg PO DAILY 02/25/18 [History] buPROPion HCl [Bupropion HCl ER] 300 mg PO DAILY 02/25/18 [History] raNITIdine HCl [Ranitidine HCl] 300 mg PO DAILY 02/25/18 [History] Mirtazapine [Remeron] 30 mg PO HS 02/26/18 [History] 3 Allergy/AdvReac Type Severity Reaction Status Date / Time No Known Allergies Allergy Verified 02/25/18 19:15 Constitutional: Present: as per HPI, anorexia, chills, fatigue, fever(s), weakness, weight loss. Absent: frequent falls Eyes: Absent: change in vision Nose, mouth and throat: Absent: dysphagia Cardiovascular: Absent: chest pain, irregular heart rhythm Respiratory: Present: cough, dyspnea. Absent: hemoptysis Gastrointestinal: Absent: abdominal pain, change in bowel habits, nausea, vomiting Genitourinary: Absent: dysuria, hematuria Musculoskeletal: Present: as per HPI, muscle weakness Integumentary: Absent: wounds Neurological: Absent: focal weakness, frequent falls Hematologic/Lymphatic: Present: as per HPI Oncology - Exam - Constitutional Vitals: Temp Pulse Resp BP Pulse Ox 97.6 F 67 17 150/81 95 03/01/18 15:09 03/01/18 15:09 03/01/18 15:40 03/01/18 15:09 03/01/18 15:40 General appearance: cooperative, no acute distress, thin, no febrile - Head Head exam: Present: atraumatic - ENT ENT exam: Present: mucous membranes moist - Respiratory Respiratory exam: Present: CTAB. Absent: respiratory distress - Cardiovascular Cardiovascular exam: Present: RRR, +S1, +S2 - GI/Abdominal GI/Abdominal exam: Present: normal bowel sounds, soft. Absent: tenderness - Extremities Exam Extremities exam: Present: normal inspection. Absent: calf tenderness - Neurological Exam Neurological exam: Present: alert, oriented X3, no focal deficits, strengths equal and symetr throughout - Psychiatric Psychiatric exam: Present: normal affect, normal mood - Skin Skin exam: Present: dry, intact, normal color, warm Oncology - Results Labs: Short CBC 03/01/18 Range/Units 04:16 WBC 13.5 H (4.3-11.1) K/mcL Hgb 11.8 (11.5-15.4) g/dL Hct 35.1 L (35.3-44.9) % Plt Count 344 (140-400) K/mcL Neutrophils # 10.8 H (1.6-8.9) K/mcL BMP 03/01/18 04:16 Sodium 132 L Potassium 3.9 Chloride 101 Carbon Dioxide 23 BUN 20 Creatinine 0.97 Glucose 127 H Calcium 8.7 Consult Discharge Plan - Plan Referrals: Hebert Ryan DO [Primary Care Provider] - 03/09/18 10:30 am <PremMiguel S - Last Filed: 03/02/18 12:31> Date of Encounter: 03/02/18 - Data of Consult Requesting Physician: Aarti Moore CNP Primary Care Provider: Hebert Ryan Family Provider: Mounika Townsend MD - Consult Narrative History of present illness: Ms. Deng is a 72 year old female Oncology - Exam - Constitutional Vitals: Temp Pulse Resp BP Pulse Ox 97.8 F 86 18 132/71 95 03/01/18 20:41 03/01/18 20:41 03/01/18 20:41 03/01/18 20:41 03/01/18 21:03 Oncology - Results Labs: Short CBC 03/01/18 Range/Units 04:16 WBC 13.5 H (4.3-11.1) K/mcL Hgb 11.8 (11.5-15.4) g/dL Hct 35.1 L (35.3-44.9) % Plt Count 344 (140-400) K/mcL Neutrophils # 10.8 H (1.6-8.9) K/mcL BMP 03/01/18 04:16 Sodium 132 L Potassium 3.9 Chloride 101 Carbon Dioxide 23 BUN 20 Creatinine 0.97 Glucose 127 H Calcium 8.7 - Attending Attestation I have seen and examined Ms. Deng and agree with Ms. Lazo's assessment. This is a very pleasant 72-year-old woman with recent pneumonia admitted with recurrent pneumonia symptoms and found to have a 3.3 cm infrahilar mass with associated pneumonia. S/P bronchoscopy today with findings concerning for malignancy. MRI brain negative. I would recommend continued treatment for pneumonia followed by outpatient staging PET/CT. We will arrange for outpatient f/u and will be watching for pathology results.
--- NOTE | 2018-03-01 19:17 | Internal Med Progress Note ---
Date of Encounter: 03/01/18 Time of Encounter: 12:00 - Assessment and plan (1) Pneumonia Current Visit: Yes Status: Acute Assessment and plan: Originally presented with shortness of breath fevers and chills presently denies any chills or fevers. She does have a moist cough with green to yellow sputum Chest CT did show diffuse right lower lobe pneumonia respiratory panels are negative urinary antigens are negative continue with IV antibiotics and steroids. White count was elevated which I suspect was related to steroid use is trending down at this time We will continue to monitor. Sputum culture with no growth. Awaiting blood cultures Patient did undergo a bronchoscopy today per pulmonology she did have mucus plugging. Bronchoscopy does show right lower lobe pneumonia continue with Levaquin for now. Pulmonary has been consult at [facility] their recommendations Qualifiers: Pneumonia type: due to unspecified organism Laterality: right Lung location: unspecified part of lung Qualified Code(s): J18.9 - Pneumonia, unspecified organism (2) Acute respiratory failure with hypoxia Current Visit: Yes Status: Acute Assessment and plan: Secondary to pneumonia/ COPD-patient is a smoker and has not been diagnosed with COPD. Pulmonology has been consulted-patient taken for bronchoscopy tolerated well. Continue with oxygen patient will require outpatient workup for COPD Continue with oxygen titrated maintain SPO2 around 90% (3) HTN (hypertension) Current Visit: Yes Status: Acute Assessment and plan: Presently controlled we will continue with home medications Qualifiers: Hypertension type: essential hypertension Qualified Code(s): I10 - Essential (primary) hypertension (4) Hypothyroidism (acquired) Current Visit: Yes Status: Acute Assessment and plan: Continue with home medication Synthroid (5) HLD (hyperlipidemia) Current Visit: Yes Status: Acute Assessment and plan: Continue with home medications Qualifiers: Hyperlipidemia type: unspecified Qualified Code(s): E78.5 - Hyperlipidemia , unspecified (6) Former smoker Current Visit: Yes Status: Acute Assessment and plan: Quit smoking 4 months ago (7) GERD (gastroesophageal reflux disease) Current Visit: Yes Status: Acute Assessment and plan: Cont home Zantac Qualifiers: Esophagitis presence: without esophagitis Qualified Code(s): K21.9 - Gastro -esophageal reflux disease without esophagitis (8) BOGDAN (acute kidney injury) Current Visit: Yes Status: Acute Assessment and plan: Improved Initially creatinine 1.5 no history of kidney disease most likely related to prerenal and decreased oral intake. We will continue to closely monitor renal function since patient did receive IV dye from chest CTA (9) Hilar mass Current Visit: Yes Status: Acute Assessment and plan: Chest CTA did reveal area of infra hilar consolidation which has a masslike appearance measuring Pete 3.[address] once acute pneumonia has resolved in approximately 2 months. I did consult pulmonology patient underwent bronchoscopy today rapid on-site evaluation preliminary cytology of the lesion in the right hilum was suggestive of malignancy final results are pending I did consult oncology oncology [employer] Ada barillas recommends MRI of head and brain rule out metastases-MRI with no evidence of intracranial metastatic disease (10) DVT prophylaxis Current Visit: Yes Status: Acute Assessment and plan: heparin subcutaneous - Time Spent With Patient Total time spent is greater than 50% in coordination of care (as documented) at patient's floor/unit and/or counseling patient: - Subjective Interval history: Patient seen and examined at bedside. Patient is on 4 L nasal cannula sats are stable 95% denies any shortness of breath or chest pain at this time Patient did undergo bronchoscopy today per pulmonology. Rapid on-site evaluation preliminary cytology of lesion in the right hilum was suggestive of malignancy. I did review bronchoscopy results with patient and her granddaughter answer their questions and informed him of the treatment plan and that oncology would be consult did. Both verbalized understanding - Constitutional Vitals: Temp Pulse Resp BP Pulse Ox 97.6 F 67 17 150/81 95 03/01/18 15:09 03/01/18 15:09 03/01/18 15:40 03/01/18 15:09 03/01/18 15:40 General appearance: Present: A&O X 3, no acute distress, answers questions appropriately - Head Head exam: Present: atraumatic, normocephalic - Eye Eye exam: Present: PERRL, conjuntiva pink, sclera anicteric Pupils: Present: PERRL - Neck Neck exam general surgery: Present: supple, trachea midline. Absent: lymphadenopathy - Respiratory Respiratory exam: Present: CTAB. Absent: accessory muscle use, rales, rhonchi, wheezes - Cardiovascular Cardiovascular exam: Present: RRR, +S1, +S2. Absent: diastolic murmur, gallop, rubs, systolic murmur - GI/Abdominal GI/Abdominal exam: Present: normal bowel sounds, soft, no peritoneal signs. Absent: distended, tenderness - Extremities Exam Extremities exam: Present: warm, radial pulses palpable and symmetrical. Absent : calf tenderness, cyanotic, pedal edema - Neurological Exam Neurological exam: Present: CN II-XII intact, oriented X3, no focal deficits. Absent: pronater drift, facial droop, speech deficit - Skin Skin exam: Present: dry, intact Internal Medicine: Result - Labs CBC & Chem 7: 03/01/18 04:16 03/01/18 04:16 Labs: Short CBC 03/01/18 Range/Units 04:16 WBC 13.5 H (4.3-11.1) K/mcL Hgb 11.8 (11.5-15.4) g/dL Hct 35.1 L (35.3-44.9) % Plt Count 344 (140-400) K/mcL Neutrophils # 10.8 H (1.6-8.9) K/mcL BMP 03/01/18 04:16 Sodium 132 L Potassium 3.9 Chloride 101 Carbon Dioxide 23 BUN 20 Creatinine 0.97 Glucose 127 H Calcium 8.7 - ABG Interpretation ABG results: ABG ABG pH 7.43 pH Units (7.32-7.45) 02/28/18 15:23 ABG pCO2 32 mmHg (35-45) L 02/28/18 15:23 ABG pO2 72 mmHg (85-104) L 02/28/18 15:23 ABG O2 Saturation 95 % (95-98) 02/28/18 15:23 PT/INR, D-dimer PT 13.5 Seconds (9.4-12.1) H 03/01/18 04:16 - Impressions Impressions Brain MRI 03/01/18 10:59 IMPRESSION: No evidence of intracranial metastatic disease. Extensive cerebral white matter disease and several remote basal ganglia lacunar infarcts, progressed from 2011. D/ / Joshua Baumann MD / Joshua Baumann MD Interpreting Provider: Joshua Baumann MD Consult Discharge Plan - Plan Referrals: Hebert Ryan DO [Primary Care Provider] - 03/09/18 10:30 am
[2018-03-01] MEDS: 0.9 % Sodium Chloride 1,000 ML IVC SCH (23:48)
[2018-03-02] MEDS: Ipratropium/Albuterol Neb 3 ML IH SCH ×5 (04:03→20:33)
[2018-03-02] MEDS: *HR* Heparin 5,000 UNIT/ML VIAL SQ SCH ×2 (06:12→16:58)
[2018-03-02] MEDS: MethylPREDNISolone 40 MG/ML VIAL IVP SCH ×2 (09:31→16:58)
[2018-03-02] MEDS: Famotidine 20 MG TABLET PO SCH (09:31)
[2018-03-02] MEDS: BuPROPion XL (24 HR) 150 MG TABLET PO SCH (09:31)
[2018-03-02] MEDS: Aspirin Enteric Coated 81 MG Tablet PO SCH (09:32)
[2018-03-02] MEDS: amLODIPine 5 MG TABLET PO SCH (09:32)
[2018-03-02] MEDS: Levofloxacin 750 MG/150 ML 750 MG/150 ML BAG IVPB SCH (09:32)
--- NOTE | 2018-03-02 13:16 | Internal Med Progress Note ---
Date of Encounter: 03/02/18 Time of Encounter: 13:10 - Assessment and plan (1) Pneumonia Current Visit: Yes Status: Acute Assessment and plan: Originally presented with shortness of breath fevers and chills presently denies any chills or fevers. Chest CT did show diffuse right lower lobe pneumonia respiratory panels are negative urinary antigens are negative continue with antibiotics and steroids white count did elevate some however most likely related to steroid use sputum culture with no growth awaiting blood cultures. Patient underwent prostate Gonzales be per pulmonology she did have mucus plugging bronchoscopy did show right lower lobe pneumonia continue with Levaquin Pulmonology has been consulted advised continuation of antibiotic and steroids patient will follow-up with pulmonology as outpatient Qualifiers: Pneumonia type: due to unspecified organism Laterality: right Lung location: unspecified part of lung Qualified Code(s): J18.9 - Pneumonia, unspecified organism (2) Acute respiratory failure with hypoxia Current Visit: Yes Status: Acute Assessment and plan: Secondary to pneumonia/ COPD-patient is a smoker and has not been diagnosed with COPD. Pulmonology has been consulted-patient taken for bronchoscopy tolerated well. Continue with oxygen patient will require outpatient workup for COPD Continue with oxygen titrated maintain SPO2 around 90%-patient completed 6 minute walk she does qualify for home oxygen (3) HTN (hypertension) Current Visit: Yes Status: Acute Assessment and plan: Presently controlled we will continue with home medications Qualifiers: Hypertension type: essential hypertension Qualified Code(s): I10 - Essential (primary) hypertension (4) Hypothyroidism (acquired) Current Visit: Yes Status: Acute Assessment and plan: Continue with home medication Synthroid (5) HLD (hyperlipidemia) Current Visit: Yes Status: Acute Assessment and plan: Continue with home medications Qualifiers: Hyperlipidemia type: unspecified Qualified Code(s): E78.5 - Hyperlipidemia , unspecified (6) Former smoker Current Visit: Yes Status: Acute Assessment and plan: Quit smoking 4 months ago (7) GERD (gastroesophageal reflux disease) Current Visit: Yes Status: Acute Assessment and plan: Cont home Zantac Qualifiers: Esophagitis presence: without esophagitis Qualified Code(s): K21.9 - Gastro -esophageal reflux disease without esophagitis (8) BOGDAN (acute kidney injury) Current Visit: Yes Status: Acute Assessment and plan: Improved creatinine 0.97 Initially creatinine 1.5 no history of kidney disease most likely related to prerenal and decreased oral intake. We will continue to closely monitor renal function since patient did receive IV dye from chest CTA (9) Hilar mass Current Visit: Yes Status: Acute Assessment and plan: Chest CTA did reveal area of infra hilar consolidation which has a masslike appearance measuring Pete 3.[address] once acute pneumonia has resolved in approximately 2 months. I did consult pulmonology patient underwent bronchoscopy today rapid on-site evaluation preliminary cytology of the lesion in the right hilum was suggestive of malignancy final results are pending I did consult oncology oncology-patient will follow-up with oncology as outpatient undergo outpatient PET scan MRI of head completed with no metastasis noted (10) Hyponatremia Current Visit: Yes Status: Acute Assessment and plan: 1. 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 We will obtain urine osmolality and sodium TSH cortisol. Continue to monitor sodium (11) DVT prophylaxis Current Visit: Yes Status: Acute Assessment and plan: heparin subcutaneous - Time Spent With Patient Total time spent is greater than 50% in coordination of care (as documented) at patient's floor/unit and/or counseling patient: - Subjective Interval history: Patient seen and examined at bedside. Patient is on 3 L NC sats are stable at 95. We will complete walk tets to see if qualifies for home O2,PT/OT for home needs. Anticipate discharge tomorrow. Reviewed with patient she verbalizes understanding - Constitutional Vitals: Temp Pulse Resp BP Pulse Ox 97.6 F 75 16 134/74 97 03/02/18 10:52 03/02/18 10:52 03/02/18 11:25 03/02/18 10:52 03/02/18 11:25 General appearance: Present: A&O X 3, no acute distress, answers questions appropriately - Head Head exam: Present: atraumatic, normocephalic - Eye Eye exam: Present: PERRL, conjuntiva pink, sclera anicteric Pupils: Present: PERRL - Neck Neck exam general surgery: Present: supple, trachea midline. Absent: lymphadenopathy - Respiratory Respiratory exam: Present: CTAB. Absent: accessory muscle use, rales, rhonchi, wheezes - Cardiovascular Cardiovascular exam: Present: RRR, +S1, +S2. Absent: diastolic murmur, gallop, rubs, systolic murmur - GI/Abdominal GI/Abdominal exam: Present: normal bowel sounds, soft, no peritoneal signs. Absent: distended, tenderness - Extremities Exam Extremities exam: Present: warm, radial pulses palpable and symmetrical. Absent : calf tenderness, cyanotic, pedal edema - Neurological Exam Neurological exam: Present: CN II-XII intact, oriented X3, no focal deficits. Absent: pronater drift, facial droop, speech deficit - Skin Skin exam: Present: dry, intact Internal Medicine: Result - Labs CBC & Chem 7: 03/01/18 04:16 03/01/18 04:16 - ABG Interpretation ABG results: ABG ABG pH 7.43 pH Units (7.32-7.45) 02/28/18 15:23 ABG pCO2 32 mmHg (35-45) L 02/28/18 15:23 ABG pO2 72 mmHg (85-104) L 02/28/18 15:23 ABG O2 Saturation 95 % (95-98) 02/28/18 15:23 PT/INR, D-dimer PT 13.5 Seconds (9.4-12.1) H 03/01/18 04:16 - Impressions Impressions Brain MRI 03/01/18 10:59 IMPRESSION: No evidence of intracranial metastatic disease. Extensive cerebral white matter disease and several remote basal ganglia lacunar infarcts, progressed from 2011. D/ / Joshua Baumann MD / Joshua Baumann MD Interpreting Provider: Joshua Baumann MD Consult Discharge Plan - Plan Referrals: Hebert Ryan DO [Primary Care Provider] - 03/09/18 10:30 am
[2018-03-02] MEDS ORDERED: 0.9 % Sodium Chloride 1,000 ML IVC SCH (13:30)
[2018-03-03] MEDS: Ipratropium/Albuterol Neb 3 ML IH SCH ×4 (00:08→11:42)
[2018-03-03] MEDS: MethylPREDNISolone 40 MG/ML VIAL IVP SCH (06:32)
[2018-03-03] MEDS: *HR* Heparin 5,000 UNIT/ML VIAL SQ SCH (06:32)
[2018-03-03 06:59] VITALS: BP 127/77
[2018-03-03 07:04] LABS: Basophils % 0.2 %; Eosinophils % 0.1 %; Hematocrit 36.2 % (35.3-44.9); Hemoglobin 12.2 g/dL (11.5-15.4); Immature Granulocytes % 3.2 % (0-4); Lymphocytes # 3.9 K/mcL (0.6-4.6); Lymphocytes % 22.1 %; Mean Corpuscular HGB Conc 33.7 g/dL (31.6-35.5); Mean Corpuscular Volume 91.9 fL (83.0-100.0); Mean Platelet Volume 8.8 fL (9.4-12.4); Monocytes # 1.2 K/mcL (0.0-1.3); Monocytes % 6.8 %; Neutrophils # 11.8 K/mcL (1.6-8.9); Platelet Count 417 K/mcL (140-400); Red Blood Count 3.94 M/mcL (3.82-4.97); Red Cell Distribution Width 13.7 % (11.5-14.5); Segmented Neutrophils % 67.6 %
[2018-03-03 07:25] LABS: BUN/Creatinine Ratio 21 (6-26); Blood Urea Nitrogen 20 mg/dL (8-23); Calcium 8.6 mg/dL (8.6-10.3); Carbon Dioxide 28 mEq/L (23-29); Chloride 99 mEq/L (98-107); Glucose 94 mg/dL (70-105); Osmolality,Calculated 280 (280-300); Potassium 3.3 mEq/L (3.5-5.1); Sodium 134 mEq/L (136-145); eGFR For African Americans > 60 (> 60); eGFR For Non-African Americans 57 (> 60)
[2018-03-03 07:37] LABS: Thyroid Stimulating Hormone 1.131 mcIU/mL (0.340-5.600)
[2018-03-03] MEDS: Aspirin Enteric Coated 81 MG Tablet PO SCH (09:41)
[2018-03-03] MEDS: Famotidine 20 MG TABLET PO SCH (09:42)
[2018-03-03] MEDS: amLODIPine 5 MG TABLET PO SCH (09:42)
[2018-03-03] MEDS: BuPROPion XL (24 HR) 150 MG TABLET PO SCH (09:42)
--- NOTE | 2018-03-03 10:50 | Discharge Summary ---
- NOTES TO OUTPATIENT PROVIDER Notes to Outpatient Provider: S/P bronchoscopy- Right Hilum specimen suggestive of malignancy - awaiting biopsy reults- Oncology follow up who will arrange CT/ PET scan as out patient . Seen by pulmonolgy - Follow up as out patient. Steroid taper, Levaquin. Will need to have Na checked as outpt had HypoNatremia -134 on discharge. On home O2 Orders not resulted at time of discharge: Pending orders 03/01/18 10:00 Culture,Respiratory [RM] Routine 03/01/18 10:04 Cytology [PTH] Routine Date of Encounter: 03/03/18 Time of Encounter: 10:44 - Discharge Diagnosis (1) Pneumonia Priority: Primary Status: Acute Qualifiers: Pneumonia type: due to unspecified organism Laterality: right Lung location: unspecified part of lung Qualified Code(s): J18.9 - Pneumonia, unspecified organism (2) Acute respiratory failure with hypoxia Priority: Primary Status: Acute (3) HTN (hypertension) Priority: Secondary Status: Acute Qualifiers: Hypertension type: essential hypertension Qualified Code(s): I10 - Essential (primary) hypertension (4) Hypothyroidism (acquired) Priority: Secondary Status: Acute (5) HLD (hyperlipidemia) Priority: Secondary Status: Acute Qualifiers: Hyperlipidemia type: unspecified Qualified Code(s): E78.5 - Hyperlipidemia , unspecified (6) Former smoker Priority: Secondary Status: Acute (7) GERD (gastroesophageal reflux disease) Priority: Secondary Status: Acute Qualifiers: Esophagitis presence: without esophagitis Qualified Code(s): K21.9 - Gastro -esophageal reflux disease without esophagitis (8) BOGDAN (acute kidney injury) Priority: Secondary Status: Acute (9) Hilar mass Priority: Primary Status: Acute (10) Hyponatremia Priority: Secondary Status: Acute Hospital course: Ms. Deng is a 72 year old female past medical history of hypertension hyperlipidemia GERD former smoker and COPD. She initially presented to the ER with complaints of fevers chills shortness of breath and right-sided chest pain consistent with pleurisy for about 4 days prior to her presentation. According to records she had imaging [facility]el[facility] which had revealed pneumonia and she was transferred to [facility] on 02/25/2018 for further treatment. CTA revealed a patchy consolidation consistent with pneumonia/atelectasis in the right lower lobe diffusely. Medially in the infrahilar region there was a component of consolidation with a masslike appearance measuring approximately 3.3 cm. Patient was treated with bronchodilators antibiotics and steroids she required supplemental oxygen and was normally not on oxygen at home. She continued to remain hypoxic despite supplemental oxygen. The filbert grower was consulted with recommendations for bronchoscopy. The Brocco asked the did reveal no airway of the right lower lobe with malignant appearance obstructive right lower lobe pneumonia with mucous plugging likely secondary to mass effect. Josselin of the right hilum specimen is suggestive of malignancy. She was seen by oncology who will perform outpatient workup as well as PET scan and CT next week. After bronchoscopy patient's respiratory state did improve however she still was dependent on oxygen. She underwent a 6 minute walk test and she will qualify for home O2. Patient's vital signs are stable she is tolerating oral intake. Patient will follow-up with oncology pulmonology and primary care physician upon discharge. She will be discharged with prednisone taper as well as antibiotics. Patient verbalized understanding of discharge instructions and is ready for discharge Discharge discussed with: patient - Time Spent with Patient Total time spent providing and/or coordinating discharge services: - Discharge Medications Prescriptions: Ipratropium/Albuterol Neb [Duoneb] 3 ml IH [id number] PRN #40 inhsol PRN Reason: Shortness Of Breath/Wheezing Levofloxacin [Levaquin] 750 mg PO Q48H #5 tablet predniSONE [PredniSONE] 10 mg PO DAILY #27 tablet Home Medications: Aspirin [Adult Aspirin Regimen] 81 mg PO DAILY 02/25/18 [History] Levothyroxine [Synthroid] 50 mcg PO DAILY 02/25/18 [History] Metoprolol Tartrate [Lopressor] 50 mg PO BID 02/25/18 [History] Nitroglycerin [Nitrostat] 0.4 mg SL Q5MIN 02/25/18 [History] Pravastatin Sodium [Pravachol] 20 mg PO HS 02/25/18 [History] Sertraline [Zoloft] 100 mg PO DAILY 02/25/18 [History] amLODIPine [Norvasc] 2.5 mg PO DAILY 02/25/18 [History] buPROPion HCl [Bupropion HCl ER] 300 mg PO DAILY 02/25/18 [History] raNITIdine HCl [Ranitidine HCl] 300 mg PO DAILY 02/25/18 [History] Mirtazapine [Remeron] 30 mg PO HS 02/26/18 [History] Ipratropium/Albuterol Neb [Duoneb] 3 ml IH [id number] PRN #40 inhsol 03/03/18 [Rx] Levofloxacin [Levaquin] 750 mg PO Q48H #5 tablet 03/03/18 [Rx] predniSONE [PredniSONE] 10 mg PO DAILY #27 tablet 03/03/18 [Rx] Allergies/Adverse Reactions: 3 Allergy/AdvReac Type Severity Reaction Status Date / Time No Known Allergies Allergy Verified 02/25/18 19:15 Date of admission: 02/25/18 21:25 Primary care physician: Hebert Ryan Consults: 02/28/18 17:32 Consult to Pulmonology [CONS] Routine Consulting Provider: [facility] Reason for Consult: hypoxia-pneumonia Time Notified: 16:33 Call Completed: Yes 03/01/18 13:12 Consult to Oncology [CONS] Routine Consulting Provider: Oncology [facility] Reason for Consult: Hilar mass Time Notified: 13:14 Call Completed: Yes 03/02/18 07:42 Consult to Binder[employer] Production Manager [CONS] Routine Reason for SW Consult: granddaughter wants to discuss POA paperwork Discharging clinician: Cathy West Anticipated date of discharge: 03/03/18 - Constitutional Vitals: Temp Pulse Resp BP Pulse Ox 97.9 F 71 16 127/77 98 03/03/18 06:43 03/03/18 06:43 03/03/18 06:43 03/03/18 06:43 03/03/18 06:43 General appearance: Present: A&O X 3, no acute distress, answers questions appropriately - Head Head exam: Present: atraumatic, normocephalic - Eye Eye exam: Present: PERRL, conjuntiva pink, sclera anicteric Pupils: Present: PERRL - Neck Neck exam general surgery: Present: supple, trachea midline. Absent: lymphadenopathy - Respiratory Respiratory exam: Present: CTAB. Absent: accessory muscle use, rales, rhonchi, wheezes - Cardiovascular Cardiovascular exam: Present: RRR, +S1, +S2. Absent: diastolic murmur, gallop, rubs, systolic murmur - GI/Abdominal GI/Abdominal exam: Present: normal bowel sounds, soft, no peritoneal signs. Absent: distended, tenderness - Extremities Exam Extremities exam: Present: warm, radial pulses palpable and symmetrical. Absent : calf tenderness, cyanotic, pedal edema - Neurological Exam Neurological exam: Present: CN II-XII intact, oriented X3, no focal deficits. Absent: pronater drift, facial droop, speech deficit - Skin Skin exam: Present: dry, intact - Patient Status Disposition: Home, Self-Care Condition: Good Functional capacity at discharge: uses cane/walker - Ambulatory Orders Ambulatory Orders: PET CT skull to thigh DX/initi [PE] Time Frame: 03/07/18, Facility: [facility], Location: Radiology - Discharge Instructions Instructions: Acute Respiratory Distress Syndrome (DC), Chronic Obstructive Pulmonary Disease (DC), Pneumonia (DC) Follow Up With: Hebert Ryan DO [Primary Care Provider] - 03/09/18 10:30 am Lucas Samuel MD [Partnered Physician] - Miguel Schwab MD [Partnered Physician] - - Diet and Activity Activity: increase activity as tolerated, wear oxygen at all times Diet: advance to your usual diet
== END 2018-03-03 13:10 | disposition home or self-care (01) | DRG 166 ==
LOC: 3BNU → 3ANU 02-28 06:26
PROVIDERS: ADMIT Internal Medicine; ATTEND Registered Nurse

== ENCOUNTER 2018-03-18 15:01 | Observation (INO) ==
[2018-03-18] MEDS ORDERED: Naloxone 0.4 MG/ML INJ IVP PRN (18:25)
[2018-03-18] MEDS ORDERED: Ipratropium/Albuterol Neb 3 ML IH PRN (18:42)
[2018-03-18] MEDS ORDERED: Acetaminophen 325 MG TABLET PO PRN (18:43)
--- NOTE | 2018-03-18 18:55 | Internal Med History&Physical ---
<YohannesUmesh - Last Filed: 03/18/18 19:32> Date of Encounter: 03/18/18 Time of Encounter: 18:00 Internal Medicine - H&P: HPI Chief complaint: Weakness/SOB Admitted From: Hospital to Hospital Transfer Plans for Post Hospital Care: Home History of present illness: Ms. Deng is a 72 year old female w/PMH of hypertension, hypothyroidism, hyperlipidemia, GERD, history of acute kidney injuries, and hilar mass presents from [facility] with chief complaint of severe weakness and shortness of breath that began this morning. SOB worse w/exertion. Patient states she has history of hypoxia and acute respiratory failure but today's severe weakness worried her. Dx of lung cancer two weeks ago. Reports she has seen Drs. Schwab and Junaid w/[facility] and has appt. for tomorrow. Reports no alleviating or aggravating factors for her weakness and denies previous occurrence. Reports cough, weakness, fever, and SOB but denies recent illness, nausea, vomiting, diarrhea, constipation, chest pain, palpitations, changes in vision, headache, abdominal pain, numbness, tingling, dizziness, lightheadedness , pre-syncope, or syncope. Past Med Surg Social Fam HX - Past Medical History Source: patient, old records reviewed Medical history: GERD, hyperlipidemia, hypertension, myocardial infarction, thyroid disease Psychiatric history: no psych history - Past Surgical History Surgical History: angioplasty/stent - Social History Smoking Status: Former smoker Packs per day: 2 PPD - Reports quitting in November 2017 Smokeless Tobacco Status: No Alcohol use: none Drug use: none Current living situation: Home Activity Level: Independent ambulation Recent Out of Country Travel Within the Last 8 Weeks: No Exposure or Possible Exposure to Illness During Travel: No - Family History Mother Race: Family Member Ethnicity: Non- Living Status: Age at : 81 Cause of : Old age Hx Family Cardiac Disorders: Yes (HTN) Hx Family Neurologic Disorders: Yes (CVA) Father Race: Family Member Ethnicity: Non- Living Status: Age at : 69 Cause of : Colon cancer Hx Family Cardiac Disorders: Yes (Aneurysm) Hx Family Cancer: Yes (Colon) Brother Race: Family Member Ethnicity: Non- Living Status: Age at : 50 Cause of : Cancer (Type unknown) Hx Family Cancer: Yes Sister Race: Family Member Ethnicity: Non- Living Status: Age at : 42 Cause of : Blood cancer (Type unknown) Hx Family Cancer: Yes Internal Medicine - H&P: Meds Aspirin [Adult Aspirin Regimen] 81 mg PO DAILY 02/25/18 [History] Levothyroxine [Synthroid] 50 mcg PO DAILY 02/25/18 [History] Metoprolol Tartrate [Lopressor] 50 mg PO DAILY 02/25/18 [History] Nitroglycerin [Nitrostat] 0.4 mg SL Q5MIN PRN 02/25/18 [History] Pravastatin Sodium [Pravachol] 20 mg PO HS 02/25/18 [History] Sertraline [Zoloft] 100 mg PO DAILY 02/25/18 [History] amLODIPine [Norvasc] 2.5 mg PO DAILY 02/25/18 [History] buPROPion HCl [Bupropion HCl ER] 300 mg PO DAILY 02/25/18 [History] raNITIdine HCl [Ranitidine HCl] 300 mg PO HS PRN 02/25/18 [History] Mirtazapine [Remeron] 30 mg PO HS 02/26/18 [History] predniSONE [PredniSONE] 10 mg PO DAILY #27 tablet 03/03/18 [Rx] Promethazine [Phenergan] 25 mg PO Q6HR PRN #30 tablet 03/09/18 [Rx] 3 Allergy/AdvReac Type Severity Reaction Status Date / Time No Known Allergies Allergy Verified 03/09/18 09:43 All Systems PM: A 10-system review of systems was performed and is negative for pertinent findings except as documented above in the HPI. - Constitutional Constitutional: as per HPI, fatigue, fever(s), weakness, no chills, no night sweats - EENT Eyes: no change in vision, no discharge, no pain, no photophobia Ears: no ear discharge, no ear pain, no tinnitus Nose, mouth and throat: no dysphagia, no nasal discharge, no neck pain, no sore throat - Breasts Breasts: as per HPI - Cardiovascular Cardiovascular ROS IM: as per HPI, dyspnea, dyspnea on exertion, no chest pain, no diaphoresis, no lightheadedness, no palpitations, no syncope - Respiratory Respiratory: as per HPI, cough, dyspnea, dyspnea on exertion, no wheezing, no excessive phlegm production - Gastrointestinal Gastrointestinal: no abdominal pain, no diarrhea, no hematemesis, no hematochezia, no melena, no nausea, no vomiting - Genitourinary Genitourinary: no change in urinary stream, no dysuria, no flank pain, no hematuria Menstruation: as per HPI - Musculoskeletal Musculoskeletal ROS IM: no numbness, no tingling - Integumentary Integumentary IM: no rash, no unusual bruising - Neurological Neurological ROS: as per HPI, weakness, no confusion, no convulsions, no focal weakness, no numbness, no tingling, no tremor(s) - Psychiatric Psychiatric: as per HPI - Endocrine Endocrine IM: as per HPI - Hematologic/Lymphatic Hematologic/Lymphatic: no easy bruising - Allergic/Immunologic Allergic/Immunologic: as per HPI - Constitutional Vitals: Pulse Ox 2 03/18/18 17:46 General appearance: Present: cooperative, A&O X 3, pleasant, no acute distress, answers questions appropriately - Head Head exam: Present: atraumatic, normocephalic - Eye Eye exam: Present: PERRL, conjuntiva pink, sclera anicteric Pupils: Present: PERRL - ENT ENT exam: Present: normal exam - Neck Neck exam general surgery: Present: supple, trachea midline. Absent: lymphadenopathy - Respiratory Respiratory exam: Present: CTAB. Absent: accessory muscle use, rales, rhonchi, wheezes - Cardiovascular Cardiovascular exam: Present: RRR, +S1, +S2. Absent: diastolic murmur, gallop, rubs, systolic murmur - GI/Abdominal GI/Abdominal exam: Present: normal bowel sounds, soft, no peritoneal signs. Absent: distended, tenderness - Rectal Rectal exam: Present: deferred - Additional comments: exam deferred. - Extremities Exam Extremities exam: Present: warm, radial pulses palpable and symmetrical. Absent : calf tenderness, cyanotic, pedal edema - Back Exam Back exam: Present: normal inspection - Neurological Exam Neurological exam: Present: CN II-XII intact, oriented X3, no focal deficits. Absent: pronater drift, facial droop, speech deficit - Psychiatric Psychiatric exam: Present: normal affect, normal mood - Skin Skin exam: Present: dry, intact Internal Med - H&P Results - Labs CBC & Chem 7: 03/18/18 18:45 03/18/18 18:45 - Assessment and plan (1) Weakness Current Visit: Yes Status: Acute Assessment and plan: Acute weakness that pt. reports as severe and beginning this morning accompanied by SOB, worse w/exertion. Denies previous sx this severe. Pt. dx w/ hilar mass/lung cancer two weeks ago. Reports reduced appetite. Denies recent illness but reports fever w/i past two days. WBC WNL. UA ordered. Blood cultures x2 ordered. Concern for possible PE/weakness, so wt.-based Lovenox Q12HR and VQ/Dopplers of LEs ordered. Echocardiogram. Falls/safety precautions, up with assist, bed rest w/bathroom privileges w/assist only. Supplemental O2 w/ titration and SpO2 monitoring. Continuous telemetry. Nutrition consult ordered for PO supplementation. Pt. discussed w/Dr. Haile who agrees w/plan of care. Pt. is high risk for further morbidity d/t acute weakness/SOB today, elevated D- dimer and concern for PE/DVT based on sx, recent dx of lung cancer, hx; and risk factors of HTN, HLD, and former tobacco abuse. Observation. (2) SOB (shortness of breath) Current Visit: Yes Status: Acute Assessment and plan: Acute on chronic SOB. Pt. reports she uses home O2 @2L. Dx w/hilar mass/lung cancer two weeks ago. SOB/dyspnea worse today. D-dimer elevated so concern is for possible PE. D/t pts. renal dysfunction, VQ scan ordered as well as bilateral Dopplers of LEs. Weight-based Lovenox Q12HR until imaging resulted. DuoNebs Q6HR PRN. Supplemental O2 w/titration and SpO2 monitoring. Echocardiogram. CXR 1-V. Falls/safety precautions, up with assist, bed rest w/ bathroom privileges w/assist only. (3) Former smoker Current Visit: Yes Status: Chronic Assessment and plan: Hx of tobacco abuse. Pt. reports smoking 2 PPD but quitting in November 2017. (4) GERD (gastroesophageal reflux disease) Current Visit: Yes Status: Chronic Assessment and plan: Hx of chronic GERD. IVP Zofran 4 mg Q6HR PRN for N/V. IVP Protonix 40 mg daily. Qualifiers: Esophagitis presence: without esophagitis Qualified Code(s): K21.9 - Gastro -esophageal reflux disease without esophagitis (5) HLD (hyperlipidemia) Current Visit: Yes Status: Chronic Assessment and plan: Hx of chronic HLD. Lipid panel in a.m. labs. Continue pts. Pravastatin. Qualifiers: Hyperlipidemia type: pure hypercholesterolemia Qualified Code(s): E78.00 - Pure hypercholesterolemia, unspecified; E78.0 - Pure hypercholesterolemia (6) HTN (hypertension) Current Visit: Yes Status: Chronic Assessment and plan: Hx of chronic HTN. Monitor pt. and VS. Continue pts. Lopressor. Qualifiers: Hypertension type: essential hypertension Qualified Code(s): I10 - Essential (primary) hypertension (7) Hilar mass Current Visit: Yes Status: Chronic Assessment and plan: Hx of hilar mass with recent dx. Pt. states she has seen Drs. Schwab and Junaid in Oncology and has appt. scheduled for tomorrow. Oncology consult ordered and discussed w/Dr. Evans to alert Oncology of pts. admission. (8) Hypothyroidism (acquired) Current Visit: Yes Status: Chronic Assessment and plan: Hx of chronic hypothyroidism. TSH and Free T4 ordered. Continue pts. Synthroid. (9) DVT prophylaxis Current Visit: Yes Status: Acute Assessment and plan: Weight-based Lovenox Q12HR d/t concern for possible PE/DVTs r/t elevated D- dimer. Monitor pt. for signs of bleeding. - Time Spent With Patient Total time spent is greater than 50% in coordination of care (as documented) at patient's floor/unit and/or counseling patient: 25 - 35 minutes <Robert Haile - Last Filed: 03/19/18 07:05> Date of Encounter: 03/19/18 Internal Medicine - H&P: HPI History of present illness: Ms. Deng is a 72 year old female All Systems PM: A 10-system review of systems was performed and is negative for pertinent findings except as documented above in the HPI. - Constitutional Vitals: Temp Pulse Resp BP Pulse Ox 97.6 F 67 16 150/81 99 03/19/18 03:44 03/19/18 03:44 03/19/18 03:44 03/19/18 03:44 03/19/18 03:44 Internal Med - H&P Results - Labs CBC & Chem 7: 03/19/18 00:45 03/19/18 00:45 Labs: Short CBC 03/18/18 03/19/18 Range/Units 18:45 00:45 WBC 9.2 (4.3-11.1) K/mcL Hgb 10.7 L 10.8 L (11.5-15.4) g/dL Hct 33.1 L 33.0 L (35.3-44.9) % Plt Count 161 (140-400) K/mcL Neutrophils # 6.3 (1.6-8.9) K/mcL BMP 03/18/18 03/19/18 18:45 00:45 Sodium 131 L 131 L Potassium 4.5 4.4 Chloride 98 98 Carbon Dioxide 27 28 BUN 20 22 Creatinine 1.51 H 1.37 H Glucose 127 H 102 Calcium 8.5 L 8.7 Cardiac Enzymes 03/18/18 03/19/18 03/19/18 Range/Units 18:45 00:45 06:04 Troponin I < 0.03 < 0.03 < 0.03 (< 0.04) ng/mL Liver Function 03/18/18 Range/Units 18:45 Total Bilirubin 0.5 (0.3-1.0) mg/dL AST 12 L (13-39) Units/L ALT 8 (7-52) Units/L Alkaline Phosphatase 76 (34-104) Units/L Albumin 3.0 L (3.5-5.7) g/dL Urine 03/18/18 Range/Units 23:33 Urine Color Yellow (Yellow) Urine Clarity Clear (Clear) Urine pH 6.5 (5.0-8.0) pH Units Ur Specific [place] 1.014 (1.010-1.025) Urine Protein Negative (Neg-Trace) mg/dL Urine Glucose (UA) Normal (Normal) mg/dL - Impressions ITS Impressions Chest X-Ray 03/18/18 19:02 IMPRESSION: Persistent right lower lobe and right perihilar opacities may represent pneumonia with malignancy not excluded. D/ / 03/18/2018 23:21:52 Angel Perez MD / [email or web address] Interpreting Provider: Angel Perez MD - Attending Attestation I saw and examined this patient independently, and my medical decision making was reviewed with the [employer]PO[employer]ULER/PA on 2017. I agree with the documented findings, assessment and treatment plan as described in the progress note. - Time Spent With Patient Total time spent is greater than 50% in coordination of care (as documented) at patient's floor/unit and/or counseling patient:
[2018-03-18 18:56] LABS: Basophils % 0.2 %; Eosinophils # 0.2 K/mcL (0.0-0.6); Eosinophils % 1.7 %; Hematocrit 33.1 % (35.3-44.9); Hemoglobin 10.7 g/dL (11.5-15.4); Immature Granulocytes % 0.2 % (0-4); Lymphocytes # 2.2 K/mcL (0.6-4.6); Lymphocytes % 23.6 %; Mean Corpuscular HGB Conc 32.3 g/dL (31.6-35.5); Mean Corpuscular Volume 92.7 fL (83.0-100.0); Mean Platelet Volume 9.5 fL (9.4-12.4); Monocytes # 0.6 K/mcL (0.0-1.3); Monocytes % 6.2 %; Neutrophils # 6.3 K/mcL (1.6-8.9); Platelet Count 161 K/mcL (140-400); Red Blood Count 3.57 M/mcL (3.82-4.97); Red Cell Distribution Width 14.4 % (11.5-14.5); Segmented Neutrophils % 68.1 %
[2018-03-18] MEDS: Ringers Solution, Lactated 1,000 ML IVC SCH (18:56)
[2018-03-18] MEDS ORDERED: Pantoprazole 40 MG VIAL IVP SCH (19:00)
[2018-03-18] MEDS ORDERED: Ondansetron 4 MG/2 ML VIAL IVP PRN (19:07)
[2018-03-18 19:15] LABS: Albumin/Globulin Ratio 1.2 (1.1-2.2); Bilirubin,Total 0.5 mg/dL (0.3-1.0); Calcium 8.5 mg/dL (8.6-10.3); Globulin 2.6 g/dL (2.4-3.5); Potassium 4.5 mEq/L (3.5-5.1); Total Protein 5.6 g/dL (6.4-8.9)
[2018-03-18] MEDS ORDERED: 0.9 % Sodium Chloride 1,000 ML IVC SCH (20:15)
[2018-03-18 23:37] LABS: Bilirubin,Urine Negative (Negative); Blood,Urine Negative (Negative); Clarity,Urine Clear (Clear); Color,Urine Yellow (Yellow); Glucose,Urine (UA) Normal (Normal); Ketones,Urine Negative (Negative); Leukocyte Esterase,Urine Trace (Negative); Nitrite,Urine Negative (Negative); PH,Urine 6.5 pH Units (5.0-8.0); Protein,Urine Negative (Neg-Trace); Specific Gravity,Urine 1.014 (1.010-1.025); Urobilinogen,Urine Normal (Normal)
[2018-03-18 23:39] LABS: Bacteria,Urine None Seen per hpf (None-Few); Hyaline Casts,Urine None Seen per lpf (None-Few); Squamous Epithelial Cell,Urine Moderate per lpf (None-Few); WBC,Urine 0-3 per hpf (0-3)
[2018-03-19 01:22] LABS: Hemoglobin 10.8 g/dL (11.5-15.4)
[2018-03-19 01:28] LABS: INR 1.1; Prothrombin Time 11.8 Seconds (9.4-12.1)
[2018-03-19 01:42] LABS: Calcium 8.7 mg/dL (8.6-10.3); Potassium 4.4 mEq/L (3.5-5.1)
[2018-03-19 01:43] LABS: Chol/HDL Ratio 3.5 (0-4.9)
[2018-03-19 01:57] LABS: Thyroid Stimulating Hormone 0.713 mcIU/mL (0.340-5.600)
[2018-03-19] MEDS ORDERED: *HR* Enoxaparin 60 MG/0.6 ML SYRINGE SQ SCH (06:00)
[2018-03-19 06:40] LABS: Troponin I < 0.03 ng/mL (< 0.04)
[2018-03-19] MEDS ORDERED: Nitroglycerin 0.4 MG TAB.SUBL SL PRN (07:58)
[2018-03-19] MEDS ORDERED: Famotidine 20 MG TABLET PO PRN (07:58)
[2018-03-19] MEDS: amLODIPine 5 MG TABLET PO SCH (09:23)
[2018-03-19 09:24] LABS: Estimated Average Glucose 117 mg/dl; Hemoglobin A1C 5.7 %
[2018-03-19] MEDS: BuPROPion XL (24 HR) 150 MG TABLET PO SCH (09:24)
[2018-03-19] MEDS: Aspirin Enteric Coated 81 MG Tablet PO SCH (09:24)
[2018-03-19] MEDS: predniSONE 10 MG TABLET PO SCH (09:24)
[2018-03-19] MEDS: Ringers Solution, Lactated 1,000 ML IVC SCH (09:28)
[2018-03-19 09:58] LABS: Magnesium 1.8 mg/dL (1.6-2.6)
[2018-03-19] MEDS ORDERED: Albuterol 2.5 MG/3 ML NEBULIZER IH PRN (10:11)
[2018-03-19] MEDS: Ipratropium/Albuterol Neb 3 ML IH SCH ×2 (15:33→21:06)
[2018-03-19] MEDS ORDERED: *HR* Enoxaparin 80 MG/0.8 ML SYRINGE SQ SCH (18:00)
--- NOTE | 2018-03-19 18:55 | Internal Med Progress Note ---
Date of Encounter: 03/19/18 Time of Encounter: 12:47 - Assessment and plan (1) Weakness Current Visit: Yes Status: Acute Assessment and plan: Improving. Acute weakness, likely associated with acute SOB. Continue falls/ safety precautions, up with assist, bed rest w/bathroom privileges w/assist only. Supplemental O2 w/titration and SpO2 monitoring. Continuous telemetry. Nutrition/PT/OT consulted. SOB workup as per below. (2) SOB (shortness of breath) Current Visit: Yes Status: Acute Assessment and plan: Improved. Acute on chronic SOB. Currently on home supplemental O2 2L via [place]. Diagnosed with hilar mass/lung cancer two weeks ago. V/Q scan shows low probability for PE. BLE dopplers pending. Continue weight-based Lovenox Q12HR until dopplers result; then can switch to prophylaxis dose. ECHO pending. Supplemental O2 w/titration and SpO2 monitoring. Respiratory status is now back to baseline, but will need to defer discharge until BLE dopplers and ECHO result, as this will determine anticoagulation need. (3) HTN (hypertension) Current Visit: Yes Status: Chronic Assessment and plan: Continue home medications. Qualifiers: Hypertension type: essential hypertension Qualified Code(s): I10 - Essential (primary) hypertension (4) Hypothyroidism (acquired) Current Visit: Yes Status: Chronic Assessment and plan: Continue home medications. (5) HLD (hyperlipidemia) Current Visit: Yes Status: Chronic Assessment and plan: Continue home medications. Qualifiers: Hyperlipidemia type: pure hypercholesterolemia Qualified Code(s): E78.00 - Pure hypercholesterolemia, unspecified; E78.0 - Pure hypercholesterolemia (6) Former smoker Current Visit: Yes Status: Chronic Assessment and plan: Patient states she quit smoking more than 120 days ago. Counselled on smoking abstinence. (7) GERD (gastroesophageal reflux disease) Current Visit: Yes Status: Chronic Assessment and plan: No issues at this time. Discontinued PPI. Qualifiers: Esophagitis presence: without esophagitis Qualified Code(s): K21.9 - Gastro -esophageal reflux disease without esophagitis (8) Hilar mass Current Visit: Yes Status: Chronic Assessment and plan: Keep follow up with Drs. Schwab and Junaid in Oncology. (9) DVT prophylaxis Current Visit: Yes Status: Acute Assessment and plan: Continue weight-based Lovenox Q12HR due to concern for possible PE/DVTs. - Time Spent With Patient Total time spent is greater than 50% in coordination of care (as documented) at patient's floor/unit and/or counseling patient: less than 15 minutes - Subjective Interval history: Patient had no acute events overnight. She states that she is breathing better this AM. Still with decent cough production. She denies chest pain, fever, chills, nausea, vomiting, or abdominal pain. She has no other complaints. - Constitutional Vitals: Temp Pulse Resp BP Pulse Ox 97.7 F 68 20 120/81 98 03/19/18 10:52 03/19/18 10:52 03/19/18 15:35 03/19/18 10:52 03/19/18 15:35 General appearance: Present: cooperative, A&O X 3, pleasant, no acute distress, answers questions appropriately - Respiratory Respiratory exam: Absent: accessory muscle use, rales, rhonchi, wheezes Additional comments: Mildly labored WOB, coarse breath sounds bilaterally - Cardiovascular Cardiovascular exam: Present: RRR, +S1, +S2. Absent: diastolic murmur, gallop, rubs, systolic murmur Additional comments: No BLE edema - GI/Abdominal GI/Abdominal exam: Present: normal bowel sounds, soft. Absent: distended, hepatomegaly, mass, splenomegaly, tenderness - Psychiatric Psychiatric exam: Present: normal affect, normal mood. Absent: agitated, anxious, depressed - Skin Skin exam: Present: dry, intact, warm. Absent: cyanosis, rash Internal Medicine: Result - Labs CBC & Chem 7: 03/19/18 00:45 03/19/18 00:45 Labs: Short CBC 03/18/18 03/19/18 Range/Units 18:45 00:45 WBC 9.2 (4.3-11.1) K/mcL Hgb 10.7 L 10.8 L (11.5-15.4) g/dL Hct 33.1 L 33.0 L (35.3-44.9) % Plt Count 161 (140-400) K/mcL Neutrophils # 6.3 (1.6-8.9) K/mcL BMP 03/18/18 03/19/18 18:45 00:45 Sodium 131 L 131 L Potassium 4.5 4.4 Chloride 98 98 Carbon Dioxide 27 28 BUN 20 22 Creatinine 1.51 H 1.37 H Glucose 127 H 102 Calcium 8.5 L 8.7 Cardiac Enzymes 03/18/18 03/19/18 03/19/18 Range/Units 18:45 00:45 06:04 Troponin I < 0.03 < 0.03 < 0.03 (< 0.04) ng/mL Liver Function 03/18/18 Range/Units 18:45 Total Bilirubin 0.5 (0.3-1.0) mg/dL AST 12 L (13-39) Units/L ALT 8 (7-52) Units/L Alkaline Phosphatase 76 (34-104) Units/L Albumin 3.0 L (3.5-5.7) g/dL Urine 03/18/18 Range/Units 23:33 Urine Color Yellow (Yellow) Urine Clarity Clear (Clear) Urine pH 6.5 (5.0-8.0) pH Units Ur Specific [place] 1.014 (1.010-1.025) Urine Protein Negative (Neg-Trace) mg/dL Urine Glucose (UA) Normal (Normal) mg/dL - ABG Interpretation ABG results: PT/INR, D-dimer PT 11.8 Seconds (9.4-12.1) 03/19/18 00:45 - Impressions Impressions Chest X-Ray 03/18/18 19:02 IMPRESSION: Persistent right lower lobe and right perihilar opacities may represent pneumonia with malignancy not excluded. D/ / 03/18/2018 23:21:52 Angel Perez MD / [email or web address] Interpreting Provider: Angel Perez MD Pulmonary Perfusion Imaging 03/19/18 07:00 IMPRESSION: Low probability for pulmonary embolism. D/ / Timoteo Milan MD / Timoteo Milan MD Interpreting Provider: Timoteo Milan MD Consult Discharge Plan - Plan Referrals: Hebert Ryan DO [Primary Care Provider] - Mounika Townsend MD [Family Provider] -
[2018-03-19] MEDS ORDERED: Mirtazapine 15 MG TABLET PO SCH (21:00)
[2018-03-20] MEDS: Ipratropium/Albuterol Neb 3 ML IH SCH ×2 (03:42→10:45)
[2018-03-20 05:59] LABS: Basophils % 0.1 %; Eosinophils # 0.1 K/mcL (0.0-0.6); Eosinophils % 1.6 %; Hematocrit 31.4 % (35.3-44.9); Hemoglobin 10.4 g/dL (11.5-15.4); Immature Granulocytes % 0.4 % (0-4); Lymphocytes # 2.2 K/mcL (0.6-4.6); Lymphocytes % 27.7 %; Mean Corpuscular HGB Conc 33.1 g/dL (31.6-35.5); Mean Corpuscular Volume 93.7 fL (83.0-100.0); Mean Platelet Volume 8.9 fL (9.4-12.4); Monocytes # 0.5 K/mcL (0.0-1.3); Monocytes % 6.4 %; Neutrophils # 5.1 K/mcL (1.6-8.9); Platelet Count 171 K/mcL (140-400); Red Blood Count 3.35 M/mcL (3.82-4.97); Segmented Neutrophils % 63.8 %
[2018-03-20 06:19] LABS: Alanine Aminotransferase 7 Units/L (7-52); Albumin/Globulin Ratio 1.3 (1.1-2.2); Alkaline Phosphatase 69 Units/L (34-104); Aspartate Amino Transferase 11 Units/L (13-39); BUN/Creatinine Ratio 18 (6-26); Bilirubin,Total 0.2 mg/dL (0.3-1.0); Blood Urea Nitrogen 19 mg/dL (8-23); Calcium 8.6 mg/dL (8.6-10.3); Carbon Dioxide 28 mEq/L (23-29); Chloride 98 mEq/L (98-107); Globulin 2.3 g/dL (2.4-3.5); Glucose 86 mg/dL (70-105); Osmolality,Calculated 274 (280-300); Potassium 4.3 mEq/L (3.5-5.1); Sodium 131 mEq/L (136-145); Total Protein 5.3 g/dL (6.4-8.9); eGFR For African Americans > 60 (> 60); eGFR For Non-African Americans 51 (> 60)
[2018-03-20 07:30] VITALS: BP 144/71
[2018-03-20] MEDS: amLODIPine 5 MG TABLET PO SCH (08:40)
[2018-03-20] MEDS: Aspirin Enteric Coated 81 MG Tablet PO SCH (08:41)
[2018-03-20] MEDS: BuPROPion XL (24 HR) 150 MG TABLET PO SCH (08:41)
[2018-03-20] MEDS: predniSONE 10 MG TABLET PO SCH (08:41)
[2018-03-20] MEDS ORDERED: *HR* Enoxaparin 60 MG/0.6 ML SYRINGE SQ SCH (09:00)
--- NOTE | 2018-03-20 09:51 | Discharge Summary ---
- NOTES TO OUTPATIENT PROVIDER Notes to Outpatient Provider: f/u with Heme Onc Dr. Schwab as an out pt tomorrow for possible initiation of Chemotherapy Orders not resulted at time of discharge: Pending orders 03/18/18 19:02 ECG 12 lead ECG [ECG] Routine 03/18/18 19:40 Culture,Blood,Additional [BC] Stat 03/21/18 04:00 Complete Blood Count [HEME] AM 0400 Date of Encounter: 03/20/18 Time of Encounter: 09:47 - Discharge Diagnosis (1) SOB (shortness of breath) Priority: Primary Status: Acute (2) Hilar mass Priority: Primary Status: Chronic (3) Weakness Priority: Primary Status: Acute (4) HTN (hypertension) Priority: Secondary Status: Chronic Qualifiers: Hypertension type: essential hypertension Qualified Code(s): I10 - Essential (primary) hypertension (5) Hypothyroidism (acquired) Priority: Secondary Status: Chronic (6) HLD (hyperlipidemia) Priority: Secondary Status: Chronic Qualifiers: Hyperlipidemia type: pure hypercholesterolemia Qualified Code(s): E78.00 - Pure hypercholesterolemia, unspecified; E78.0 - Pure hypercholesterolemia (7) Former smoker Priority: Secondary Status: Chronic (8) GERD (gastroesophageal reflux disease) Priority: Secondary Status: Chronic Qualifiers: Esophagitis presence: without esophagitis Qualified Code(s): K21.9 - Gastro -esophageal reflux disease without esophagitis (9) DVT prophylaxis Priority: Secondary Status: Acute (10) Chronic respiratory failure with hypoxia Priority: Secondary Status: Acute Hospital course: Ms. Deng is a 72 year old female w/PMH of hypertension, hypothyroidism, hyperlipidemia, GERD, and hilar mass presented from [facility] with chief complaint of severe weakness and shortness of breath. She was recently Dx of lung cancer two weeks ago. She did have pneumonia and acute hypoxic resp failure recently. She finished her full course of abx and currently on 2 lit home O2. Pt was admitted here, her CXR did not show any acute infiltrates. Her work up for V/Q scan and Venous doppler of BLE were negative. Pt seems she is back to baseline. So will d/c her home today in stable condition. I did talk to Heme Onc ADAPTIVE PHYSICAL EDUCATION SPECIALIST Annmarie Lazo who is planning on scheduling for Chemo in AM at [facility] office. Pt was given all the instructions. - Time Spent with Patient Total time spent providing and/or coordinating discharge services: - Discharge Medications Home Medications: Aspirin [Adult Aspirin Regimen] 81 mg PO DAILY 02/25/18 [History] Levothyroxine [Synthroid] 50 mcg PO DAILY 02/25/18 [History] Metoprolol Tartrate [Lopressor] 50 mg PO DAILY 02/25/18 [History] Nitroglycerin [Nitrostat] 0.4 mg SL Q5MIN PRN 02/25/18 [History] Pravastatin Sodium [Pravachol] 20 mg PO HS 02/25/18 [History] Sertraline [Zoloft] 150 mg PO DAILY 02/25/18 [History] amLODIPine [Norvasc] 5 mg PO DAILY 02/25/18 [History] buPROPion HCl [Bupropion HCl ER] 300 mg PO DAILY 02/25/18 [History] raNITIdine HCl [Ranitidine HCl] 300 mg PO HS PRN 02/25/18 [History] Mirtazapine [Remeron] 30 mg PO HS 02/26/18 [History] Promethazine [Phenergan] 25 mg PO Q6HR PRN #30 tablet 03/09/18 [Rx] Omeprazole [PriLOSEC] 40 mg PO DAILY@0730 capsule. 03/20/18 [Rx] Ondansetron [Zofran] 4 mg IVP Q6HR PRN vial 03/20/18 [Rx] predniSONE [PredniSONE] 10 mg PO DAILY tablet 03/20/18 [Rx] Allergies/Adverse Reactions: 3 Allergy/AdvReac Type Severity Reaction Status Date / Time No Known Allergies Allergy Verified 03/19/18 09:00 Date of admission: 03/18/18 18:06 Primary care physician: Hebert Ryan Consults: 03/18/18 18:37 Consult to Oncology [CONS] Routine Consulting Provider: [facility] Reason for Consult: Patient admitted for severe weakness and SOB this morning. Concern is for possible PE so VQ scan in a.m. Pt. being given wt.-based Lovenox Q12 d /t elevated D-dimer. Pt. reports appt. w/Oncology tomorrow so wanted to alert Oncology of pts. admission. Call Completed: No 03/18/18 18:43 Consult to Nutrition [CONS] Routine Comment: Consulting Provider: NUTRITION Reason for Dietary Consult: PO Supplementation 03/18/18 18:45 Consult to Foreign Service Officer [CONS] Routine Reason for SW Consult: Please assess patient for possible home needs for post -discharge planning. 03/18/18 18:47 Consult to Occupational Therapy [CONS] Routine Comment: Evaluate, develop and implement POC Reason for Consult: Patient reports difficulty w/ambulation d/t weakness and instability. Please assess patient for ambulation strength, stability , safety, and possible home assistive/ rehabilitation needs for postdischarge planning. Does patient have active BEDREST order?: Yes Is patient medically & hemodynamically stable?: Yes Patient assessed for mobility or mobilized this visit?: No 03/19/18 18:56 Consult to Physical Therapy [CONS] Routine Comment: Evaluate, develop and implement POC Reason for Consult: Generalized Debility. Please evaluate, treat, and make recommendations. Does patient have active BEDREST order?: No Is patient medically & hemodynamically stable?: Yes Patient assessed for mobility or mobilized this visit?: No - Constitutional Vitals: Temp Pulse Resp BP Pulse Ox 97.8 F 71 18 144/71 92 03/20/18 07:25 03/20/18 07:25 03/20/18 07:25 03/20/18 07:25 03/20/18 07:25 General appearance: Present: cooperative, A&O X 3, pleasant, no acute distress, answers questions appropriately - Patient Status Disposition: Home, Self-Care Condition: Good Overall status at discharge: patient is back to baseline - Discharge Instructions Follow Up With: Mounika Townsend MD [Family Provider] - Hebert Ryan DO [Primary Care Provider] - - Diet and Activity Activity: increase activity as tolerated, wear oxygen at all times (2 lit) Diet: low salt diet
[2018-03-21] MEDS ORDERED: *HR* Enoxaparin 40 MG/0.4 ML SYRINGE SQ SCH (06:00)
== END 2018-03-20 12:33 | disposition home or self-care (01) ==
LOC: 2ANU → SUATTDRO 18:06
PROVIDERS: ADMIT Hospitalist; ATTEND Family Medicine

== ENCOUNTER 2018-04-19 12:55 | Inpatient (IN) ==
[2018-04-19] MEDS ORDERED: GI Cocktail 40 ML EACH PO ONE (12:59)
[2018-04-19] MEDS ORDERED: 0.9 % Sodium Chloride 1,000 ML IVC ONE (13:01)
--- NOTE | 2018-04-19 13:01 | Emergency Department Note ---
Disposition Clinical Impression: Esophagitis, Throat pain, History of cancer, Thrombocytopenia Chest pain Qualifiers: Chest pain type: unspecified Qualified Code(s): R07.9 - Chest pain, unspecified Leukopenia Qualifiers: Leukopenia type: unspecified Qualified Code(s): D72.819 - Decreased white blood cell count, unspecified Anemia Qualifiers: Anemia type: unspecified type Qualified Code(s): D64.9 - Anemia, unspecified Disposition: Admitted As Inpatient Condition: Fair Referrals: Mounika Townsend MD [Family Provider] - Hebert Ryan DO [Primary Care Provider] - Forms: ED Satisfaction Letter Time of Disposition: 15:02 Chest Pain HPI - General Chief Complaint: ED Chest Pain Stated Complaint: chets pain Time Seen by Provider: 04/19/18 12:57 Source: EMS Mode of arrival: ambulatory Limitations: no limitations Vital Signs Reviewed: Yes Nursing Notes Reviewed: Yes - History of Present Illness HPI Narrative: Patient is a 72-year-old female with past medical history of small cell lung cancer, bony metastases, COPD. She is currently following with cancer center here at [place]. She recently started chemotherapy within the past month. She also received radiation therapy about one week ago. For the past 2-3 days, patient has had pain with swallowing, upper midline chest pain. She states the chest pain is worse when swallowing liquids or solids. Denies any other nausea , vomiting, fevers, sweating, abdominal pain. Denies any dysuria, hematuria. She weighs 2 L nasal cannula chronically. EMS states that the patient was picked up from home and had saturation 95-96% on her usual home O2. Patient denies any increased cough or shortness of breath above her baseline. She was given aspirin 325 mg by EMS. No nitroglycerin was given due to blood pressure systolic 100. She takes 15 mg of oxycodone that she has a home prior to arrival that she takes for bony metastasis pain. Severity scale (1-10): 9 - Related Data Home Medications Medication Instructions Recorded Confirmed Aspirin [Adult Aspirin Regimen] 81 mg PO DAILY 02/25/18 04/17/18 Levothyroxine [Synthroid] 50 mcg PO DAILY 02/25/18 04/17/18 Nitroglycerin [Nitrostat] 0.4 mg SL Q5MIN PRN 02/25/18 04/17/18 Pravastatin Sodium [Pravachol] 20 mg PO HS 02/25/18 04/17/18 Sertraline [Zoloft] 150 mg PO DAILY 02/25/18 04/17/18 buPROPion HCl [Bupropion HCl ER] 300 mg PO DAILY 02/25/18 04/17/18 raNITIdine HCl [Ranitidine HCl] 300 mg PO HS PRN 02/25/18 04/17/18 Mirtazapine [Remeron] 30 mg PO HS 02/26/18 04/17/18 Previous Rx's Medication Instructions Recorded Promethazine [Phenergan] 25 mg PO Q6HR PRN #30 tablet 03/09/18 Omeprazole [PriLOSEC] 40 mg PO DAILY@0730 capsule. 03/20/18 predniSONE [PredniSONE] 10 mg PO DAILY tablet 03/20/18 Albuterol Sulfate [Albuterol 1 puff IH Q6HR PRN #1 hfa.aer.ad 03/27/18 Inhaler] predniSONE [Prednisone] 10 mg PO AD #21 tab.ds.pk 03/27/18 levoFLOXacin [Levaquin] 500 mg PO DAILY 7 Days #7 tablet 04/04/18 Oxycodone HCl [Oxycontin] 10 - 20 mg PO Q4H 30 Days #240 04/17/18 tab.er.12h Allergies Allergy/AdvReac Type Severity Reaction Status Date / Time No Known Allergies Allergy Verified 04/09/18 08:04 All systems ED: reviewed and negative except as stated. Constitutional: Denies: fever ENT ED: Reports: throat pain Cardiovascular: Reports: chest pain Respiratory: Denies: cough, dyspnea Gastrointestinal: Denies: abdominal pain, nausea, vomiting Genitourinary: Denies: urgency, dysuria, frequency, hematuria, discharge, abnormal menses Neurological: Denies: headache, paresthesias Chest Pain PMH - Past Medical History Medical history: Reports: GERD, hyperlipidemia, hypertension, myocardial infarction, renal disease, thyroid disease Surgical history: Reports: angioplasty/stent Psychiatric history: Reports: no psych history - Social History Smoking Status: Former smoker Alcohol use: Reports: none Drug use: Reports: none Physical Exam - General Limitations: no limitations General appearance: alert, in no apparent distress - Head Head exam: atraumatic, normocephalic, normal inspection - Eye Eye exam: Present: normal appearance, PERRL, EOMI - ENT ENT exam: normal exam, normal oropharynx, other (tacky mucous membranes) - Neck Neck exam: Present: normal inspection, full ROM, trachea midline - Chest Chest inspection: Present: normal inspection, symmetric chest wall rise - Respiratory Respiratory exam: Present: normal lung sounds bilaterally. Absent: respiratory distress, wheezes - Cardiovascular Cardiovascular exam: Present: normal rhythm, tachycardia, normal heart sounds - Abdominal Exam Abdominal exam: Present: soft, Non-Tender. Absent: tenderness, distention, guarding, rebound, rigidity - Extremities Exam Extremities exam: Present: normal inspection, full ROM. Absent: tenderness, pedal edema - Neurological Exam Neurological exam: Present: alert, oriented X3 - Psychiatric Psychiatric exam: Present: normal affect, normal mood - Skin Skin exam: Present: warm, dry, intact, normal color Course Course Narrative: Patient's throat and chest pain is likely secondary to radiation-induced esophagitis. We will give the patient GI cocktail to see if this helps. We will also obtain basic labs, troponin, EKG, chest x-ray. EKG shows sinus tachycardia with no acute ST changes. We will give the patient 1 L normal saline bolus to help with tacky mucous membranes and mild tachycardia. Lab work was looked at from yesterday from her appointment at [facility], she was neutropenic at that time. Patient will be placed on neutropenic precautions. Her note also states that she has chronic chest discomfort from bony metastasis pain. 14:59 patient had short relief of throat and chest pain after GI cocktail but pain is returning. Hemoglobin is 7, platelets of 48. I talked with [facility], they are unable to get patient in for outpatient transfusion and follow- up in next 2 days. The patient herself is not comfortable with going home at this time. We will go ahead and order type and screen, 2 units transfusion for hemoglobin of 7. Also admit for pain control of likely radiation induced esophagitis. Vital Signs Temperature 0 F L 04/19/18 12:55 Pulse Rate 106 04/19/18 12:55 Respiratory Rate 18 04/19/18 12:55 Blood Pressure 122/70 04/19/18 12:55 O2 Sat by Pulse Oximetry 95 04/19/18 12:55 Temperature 0 F L 04/19/18 12:55 Pulse Rate 98 04/19/18 13:55 Respiratory Rate 18 04/19/18 13:55 Blood Pressure 116/69 04/19/18 13:55 O2 Sat by Pulse Oximetry 99 04/19/18 13:55 Oxygen Delivery Oxygen Delivery Nasal Cannula Chest Pain - MDM Narrative Medical decision making narrative: Patient's throat and chest pain is likely secondary to radiation-induced esophagitis. We will give the patient GI cocktail to see if this helps. We will also obtain basic labs, troponin, EKG, chest x-ray. EKG shows sinus tachycardia with no acute ST changes. We will give the patient 1 L normal saline bolus to help with tacky mucous membranes and mild tachycardia. Lab work was looked at from yesterday from her appointment at [facility], she was neutropenic at that time. Patient will be placed on neutropenic precautions. Her note also states that she has chronic chest discomfort from bony metastasis pain. 14:59 patient had short relief of throat and chest pain after GI cocktail but pain is returning. Hemoglobin is 7, platelets of 48. I talked with [facility], they are unable to get patient in for outpatient transfusion and follow- up in next 2 days. The patient herself is not comfortable with going home at this time. We will go ahead and order type and screen, 2 units transfusion for hemoglobin of 7. Also admit for pain control of likely radiation induced esophagitis. - Medical Records Medical records reviewed: Yes I reviewed the patient's medical records. - Lab Data Lab results reviewed: Yes I reviewed the patient's lab results. Result diagrams: 04/19/18 13:10 04/19/18 13:10 Lab Results 04/19/18 04/19/18 Range/Units 13:10 13:10 WBC 0.2 L* (4.3-11.1) K/mcL RBC 2.30 L (3.82-4.97) M/mcL Hgb 7.0 L (11.5-15.4) g/dL Hct 21.1 L (35.3-44.9) % MCV 91.7 (83.0-100.0) fL MCH 30.4 (28.0-33.3) pg MCHC 33.2 (31.6-35.5) g/dL RDW 13.5 (11.5-14.5) % Plt Count 48 L (140-400) K/mcL MPV 12.6 H (9.4-12.4) fL Immature Gran % 0.0 (0-4) % Seg Neutrophils % 27.7 % Lymphocytes % 55.6 % Monocytes % 16.7 % Eosinophils % 0.0 % Basophils % 0.0 % Neutrophils # 0.1 L (1.6-8.9) K/mcL Lymphocytes # 0.1 L (0.6-4.6) K/mcL Monocytes # 0.0 (0.0-1.3) K/mcL Eosinophils # 0.0 (0.0-0.6) K/mcL Basophils # 0.0 (0.0-0.2) K/mcL Reactive Lymphocytes Present A (Not Present) Platelet Estimate Decreased L (Normal) Sodium 135 L (136-145) mEq/L Potassium 4.4 (3.5-5.1) mEq/L Chloride 103 (98-107) mEq/L Carbon Dioxide 21 L (23-29) mEq/L BUN 31 H (8-23) mg/dL Creatinine 1.17 (0.60-1.20) mg/dL Est GFR ( Amer) 55 L (> 60) Est GFR (Non-Af Amer) 46 L (> 60) BUN/Creatinine Ratio 26 (6-26) Glucose 124 H (70-105) mg/dL Calculated Osmolality 288 (280-300) Calcium 8.8 (8.6-10.3) mg/dL Troponin I 0.03 (< 0.04) ng/mL - Radiology Data Radiology results reviewed: Yes I reviewed the patient's radiology results. - EKG Data EKG attestation: Yes I reviewed and interpreted this EKG. EKG results narrative: 04/19/2018 at 13:01. Sinus tachycardia. Rate 105. AR 137. QRS was 85. QTC 406. Normal axis. No acute ST elevation or depression. S.B.A.R. - S.B.A.R. Situation: Demographics, MOA Background: Presenting Complaint, Relevant PMH, Meds, & Allergies Assessment: Vital Signs, Course and respsone to treatment, Exam Concerns, Patient/Family Expectation, Pertinant Lab Results Recommendation: Barrier(s) to disposition, Recommendation based on pending studies, treatments, or consults S.B.A.R. Report Given to: Dr. Alvarez
--- NOTE | 2018-04-19 13:04 | Emergency Department Note ---
Disposition Clinical Impression: Esophagitis, Throat pain, Chest pain, History of cancer, Leukopenia, Thrombocytopenia, Anemia Disposition: Admitted As Inpatient Condition: Fair Chest Pain HPI - General Chief Complaint: ED Chest Pain Stated Complaint: chets pain Time Seen by Provider: 04/19/18 12:57 Source: EMS Mode of arrival: ambulatory Limitations: no limitations Vital Signs Reviewed: Yes Nursing Notes Reviewed: Yes - History of Present Illness HPI Narrative: This documentation is done with the assistance of Dragon dictation. Despite efforts made to ensure accuracy, there may be inaccuracies in sealer aircraft or spelling and typographical errors. I examined this patient and my medical decision-making was reviewed with the Resident Physician. I agree with the documented findings, disposition and treatment plan as described except to the extent set forth below. Patient seen and evaluated on arrival with EMS, and Dr. Peoples, I agree with his evaluation and treatment plan. I supervised the care the patient's stay. Patient presents today from the cancer center. With chest pain. She has trouble swallowing. Could be due to her chemotherapy come to do this determine if she is getting radiation also. Old notes that she said some rib pain due to some bone lesions. She has a history of COPD. Zane lab work. And then discuss her with oncology. She is in agreement with this plan. Severity scale (1-10): 9 - Related Data Home Medications Medication Instructions Recorded Confirmed Aspirin [Adult Aspirin Regimen] 81 mg PO DAILY 02/25/18 04/19/18 Levothyroxine [Synthroid] 50 mcg PO DAILY 02/25/18 04/19/18 Nitroglycerin [Nitrostat] 0.4 mg SL Q5MIN PRN 02/25/18 04/19/18 Pravastatin Sodium [Pravachol] 20 mg PO HS 02/25/18 04/19/18 Sertraline [Zoloft] 150 mg PO DAILY 02/25/18 04/19/18 buPROPion HCl [Bupropion HCl ER] 300 mg PO DAILY 02/25/18 04/19/18 Mirtazapine [Remeron] 30 mg PO HS 02/26/18 04/19/18 Albuterol Sulfate [Ventolin Hfa] 2 puff IH Q4-6H PRN 04/19/18 04/19/18 Budesonide/Formoterol 160/4.5 2 puff IH BID 04/19/18 04/19/18 [Symbicort 160/4.5] Metoprolol Tartrate [Metoprolol 50 mg PO DAILY PRN 04/19/18 04/19/18 Tartrate] amLODIPine [Norvasc] 5 mg PO DAILY PRN 04/19/18 04/19/18 Previous Rx's Medication Instructions Recorded Promethazine [Phenergan] 25 mg PO Q6HR PRN #30 tablet 03/09/18 Albuterol Sulfate [Albuterol 1 puff IH Q6HR PRN #1 hfa.aer.ad 03/27/18 Inhaler] Oxycodone HCl [Oxycontin] 10 - 20 mg PO Q4H 30 Days #240 04/17/18 tab.er.12h Allergies Allergy/AdvReac Type Severity Reaction Status Date / Time No Known Allergies Allergy Verified 04/09/18 08:04 Chest Pain PMH - Past Medical History Medical history: Reports: GERD, hyperlipidemia, hypertension, myocardial infarction, renal disease, thyroid disease Surgical history: Reports: angioplasty/stent Psychiatric history: Reports: no psych history - Social History Smoking Status: Former smoker Alcohol use: Reports: none Drug use: Reports: none Physical Exam - General Limitations: no limitations General appearance: alert, in no apparent distress Course Vital Signs Temperature 0 F L 04/19/18 12:55 Pulse Rate 106 04/19/18 12:55 Respiratory Rate 18 04/19/18 12:55 Blood Pressure 122/70 04/19/18 12:55 O2 Sat by Pulse Oximetry 95 04/19/18 12:55 Temperature 97.6 F 04/19/18 18:14 Pulse Rate 113 04/19/18 18:14 Respiratory Rate 22 04/19/18 18:14 Blood Pressure 148/85 04/19/18 18:14 O2 Sat by Pulse Oximetry 97 04/19/18 18:14 Oxygen Delivery Oxygen Delivery Room Air Chest Pain - MDM Narrative Medical decision making narrative: The patient's labs are returning. We noticed that on her past treatment she had neutropenic white blood cell count and had pancytopenia. She has the same today's with neutropenia precautions with her. Chest X-Ray 04/19/18 12:58 IMPRESSION: 1. Persistent right base airspace opacity, not appreciably changed when correlated to prior PET-CT of March 08, 2018. 2. Persistent right infrahilar mass, known malignancy. 3. Emphysema. D/ / Redd Allen MD / Redd Allen MD Interpreting Provider: Redd Allen MD 1352 hrs.: Patient's chest x-ray is back. Were going to go ahead and bring her into the hospital. We will speak with her and with oncology. 1400 hrs.: Discussed the patient with oncology. They prefer that she not be admitted. Patient's okay with that. She waited follow-up with them tomorrow. Patient's in agreement with this plan. Should she for worse or no better she is return here. Continue discharge instructions from oncology clinic. 1424 hrs.: Discuss this further with patient she has says now that she has not feel comfortable going home should like to be admitted we will consult oncology Center hospitalist service. She is in agreement with this plan. - Lab Data Result diagrams: 04/19/18 13:10 04/19/18 13:10 Lab Results 04/19/18 04/19/18 04/19/18 Range/Units 13:10 13:10 15:05 WBC 0.2 L* (4.3-11.1) K/mcL RBC 2.30 L (3.82-4.97) M/mcL Hgb 7.0 L (11.5-15.4) g/dL Hct 21.1 L (35.3-44.9) % MCV 91.7 (83.0-100.0) fL MCH 30.4 (28.0-33.3) pg MCHC 33.2 (31.6-35.5) g/dL RDW 13.5 (11.5-14.5) % Plt Count 48 L (140-400) K/mcL MPV 12.6 H (9.4-12.4) fL Immature Gran % 0.0 (0-4) % Seg Neutrophils % 27.7 % Lymphocytes % 55.6 % Monocytes % 16.7 % Eosinophils % 0.0 % Basophils % 0.0 % Neutrophils # 0.1 L (1.6-8.9) K/mcL Lymphocytes # 0.1 L (0.6-4.6) K/mcL Monocytes # 0.0 (0.0-1.3) K/mcL Eosinophils # 0.0 (0.0-0.6) K/mcL Basophils # 0.0 (0.0-0.2) K/mcL Reactive Lymphocytes Present A (Not Present) Platelet Estimate Decreased L (Normal) Sodium 135 L (136-145) mEq/L Potassium 4.4 (3.5-5.1) mEq/L Chloride 103 (98-107) mEq/L Carbon Dioxide 21 L (23-29) mEq/L BUN 31 H (8-23) mg/dL Creatinine 1.17 (0.60-1.20) mg/dL Est GFR ( Amer) 55 L (> 60) Est GFR (Non-Af Amer) 46 L (> 60) BUN/Creatinine Ratio 26 (6-26) Glucose 124 H (70-105) mg/dL Calculated Osmolality 288 (280-300) Calcium 8.8 (8.6-10.3) mg/dL Troponin I 0.03 (< 0.04) ng/mL Blood Type O POSITIVE Antibody Screen NEGATIVE Crossmatch See Detail Critical Care Time Critical Care Time: No
[2018-04-19 13:30] LABS: Red Cell Distribution Width 13.5 % (11.5-14.5)
[2018-04-19 13:31] LABS: Hematocrit 21.1 % (35.3-44.9); Lymphocytes # 0.1 K/mcL (0.6-4.6); Lymphocytes % 55.6 %; Mean Corpuscular HGB Conc 33.2 g/dL (31.6-35.5); Mean Corpuscular Hemoglobin 30.4 pg (28.0-33.3); Mean Corpuscular Volume 91.7 fL (83.0-100.0); Mean Platelet Volume 12.6 fL (9.4-12.4); Monocytes % 16.7 %; Neutrophils # 0.1 K/mcL (1.6-8.9); Segmented Neutrophils % 27.7 %
[2018-04-19 13:42] LABS: Platelet Count 48 K/mcL (140-400)
[2018-04-19 13:45] LABS: Troponin I 0.03 ng/mL (< 0.04)
[2018-04-19 13:46] LABS: Calcium 8.8 mg/dL (8.6-10.3); Potassium 4.4 mEq/L (3.5-5.1)
[2018-04-19 14:19] LABS: Platelet Estimate Decreased (Normal); Reactive Lymphocytes Present (Not Present)
[2018-04-19] MEDS ORDERED: *HR* HYDROcodone/Acet 5/325 mg TABLET PO PRN (15:25)
[2018-04-19] MEDS ORDERED: Naloxone 0.4 MG/ML INJ IVP PRN (15:25)
[2018-04-19] MEDS ORDERED: *HR* OxyCODONE Immed Rel 5 MG TABLET PO PRN (15:25)
--- NOTE | 2018-04-19 15:34 | Internal Med History&Physical ---
Date of Encounter: 04/19/18 Time of Encounter: 15:31 Internal Medicine - H&P: HPI Chief complaint: chest pain Admitted From: Emergency Dept History of present illness: Ms. 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 Chest x-ray showed a right basilar airspace opacity unchanged from before likely from her prior mass. Total white blood cell count today 0.2 and total neutrophil count is 0.1, platelets are 48 and hemoglobin has dropped down to 7. She does not complain of melena or bright red blood per rectum. Was given a dose of aspirin might AMS. Troponin is normal. Oncology has been called by the ER physician. No fevers, no sick contacts, UA has not been performed yet Past Med Surg Social Fam HX - Past Medical History Medical history: COPD (Oxygen dependent using 2 L continuously), GERD, hyperlipidemia, hypertension, myocardial infarction, renal disease (ckd3), thyroid disease (Hypothyroidism), other (Small cell lung carcinoma of the lung with bone metastases status post chemotherapy and radiation) Psychiatric history: no psych history - Past Surgical History Surgical History: angioplasty/stent - Social History Smoking Status: Former smoker Smokeless Tobacco Status: No Alcohol use: none Drug use: none - Family History Mother Family Member Ethnicity: Non- Living Status: Hx Family Cardiac Disorders: Yes (HTN) Hx Family Neurologic Disorders: Yes (CVA) Father Family Member Ethnicity: Non- Living Status: Hx Family Cardiac Disorders: Yes (Aneurysm) Hx Family Cancer: Yes (Colon) Brother Family Member Ethnicity: Non- Living Status: Hx Family Cancer: Yes Sister Family Member Ethnicity: Non- Living Status: Hx Family Cancer: Yes - Additional Family History Additional family history: Mother with CVA and father with colon cancer Internal Medicine - H&P: Meds Aspirin [Adult Aspirin Regimen] 81 mg PO DAILY 02/25/18 [History] Levothyroxine [Synthroid] 50 mcg PO DAILY 02/25/18 [History] Nitroglycerin [Nitrostat] 0.4 mg SL Q5MIN PRN 02/25/18 [History] Pravastatin Sodium [Pravachol] 20 mg PO HS 02/25/18 [History] Sertraline [Zoloft] 150 mg PO DAILY 02/25/18 [History] buPROPion HCl [Bupropion HCl ER] 300 mg PO DAILY 02/25/18 [History] raNITIdine HCl [Ranitidine HCl] 300 mg PO HS PRN 02/25/18 [History] Mirtazapine [Remeron] 30 mg PO HS 02/26/18 [History] Promethazine [Phenergan] 25 mg PO Q6HR PRN #30 tablet 03/09/18 [Rx] Omeprazole [PriLOSEC] 40 mg PO DAILY@0730 capsule.dr 03/20/18 [Rx] predniSONE [PredniSONE] 10 mg PO DAILY tablet 03/20/18 [Rx] Albuterol Sulfate [Albuterol Inhaler] 1 puff IH Q6HR PRN #1 hfa.aer.ad 03/27/18 [Rx] predniSONE [Prednisone] 10 mg PO AD #21 tab.ds.pk 03/27/18 [Rx] levoFLOXacin [Levaquin] 500 mg PO DAILY 7 Days #7 tablet 04/04/18 [Rx] Oxycodone HCl [Oxycontin] 10 - 20 mg PO Q4H 30 Days #240 tab.er.12h 04/17/18 [Rx ] 3 Allergy/AdvReac Type Severity Reaction Status Date / Time No Known Allergies Allergy Verified 04/09/18 08:04 All Systems PM: A 10-system review of systems was performed and is negative for pertinent findings except as documented above in the HPI. Review of systems: Feels very weak, complains of severe dysphagia, other systems out of the 10 reviewed were negative - Constitutional Vitals: Temp Pulse Resp BP Pulse Ox 0 F L 105 18 141/81 94 04/19/18 12:55 04/19/18 15:24 04/19/18 15:24 04/19/18 15:24 04/19/18 15:24 General appearance: Present: A&O X 3, underweight - Head Head exam: Present: atraumatic, normocephalic - Eye Eye exam: Present: PERRL, conjuntiva pink, sclera anicteric Pupils: Present: PERRL - Neck Neck exam general surgery: Present: supple, trachea midline. Absent: lymphadenopathy - Respiratory Respiratory exam: Present: decreased breath sounds, CTAB. Absent: accessory muscle use, rales, rhonchi, wheezes - Cardiovascular Cardiovascular exam: Present: RRR, +S1, +S2. Absent: diastolic murmur, gallop, rubs, systolic murmur - GI/Abdominal GI/Abdominal exam: Present: normal bowel sounds, soft, no peritoneal signs. Absent: distended, tenderness - Extremities Exam Extremities exam: Present: warm, radial pulses palpable and symmetrical. Absent : calf tenderness, cyanotic, pedal edema - Neurological Exam Neurological exam: Present: CN II-XII intact, oriented X3, no focal deficits. Absent: pronater drift, facial droop, speech deficit - Skin Skin exam: Present: dry, intact Internal Med - H&P Results - Labs CBC & Chem 7: 04/19/18 13:10 04/19/18 13:10 Labs: Short CBC 04/19/18 Range/Units 13:10 WBC 0.2 L* (4.3-11.1) K/mcL Hgb 7.0 L (11.5-15.4) g/dL Hct 21.1 L (35.3-44.9) % Plt Count 48 L (140-400) K/mcL Neutrophils # 0.1 L (1.6-8.9) K/mcL BMP 04/19/18 13:10 Sodium 135 L Potassium 4.4 Chloride 103 Carbon Dioxide 21 L BUN 31 H Creatinine 1.17 Glucose 124 H Calcium 8.8 Cardiac Enzymes 04/19/18 Range/Units 13:10 Troponin I 0.03 (< 0.04) ng/mL - Impressions ITS Impressions Chest X-Ray 04/19/18 12:58 IMPRESSION: 1. Persistent right base airspace opacity, not appreciably changed when correlated to prior PET-CT of March 08, 2018. 2. Persistent right infrahilar mass, known malignancy. 3. Emphysema. D/ / Redd Allen MD / Redd Allen MD Interpreting Provider: Redd Allne MD - Assessment and plan (1) Severe neutropenia Current Visit: Yes Status: Acute Assessment and plan: Severe neutropenia with severe dysphagia, consider possible fungal esophagitis Pancytopenia Send a Fungitell test Cover with IV fluconazole GI consult to be scoped when possible Cefepime 2 g 3 times a day Neutrophil precautions and clear liquids/neutropenic diet Oncology consult called by ER physician OB transfused with 1 unit of blood Monitor neutrophils in the morning Protonix IV twice a day for GI prophylaxis and sequential compression devices for DVT prophylaxis. The patient will be admitted as inpatient, expected to stay more than 2 midnights. Full code. Time spent on this admission 40 minutes (2) Dehydration Current Visit: Yes Status: Acute Assessment and plan: IV fluids (3) Esophagitis Current Visit: Yes Status: Acute (4) Thrombocytopenia Current Visit: Yes Status: Acute (5) Chronic respiratory failure with hypoxia Current Visit: No Status: Acute Assessment and plan: Stable (6) Former smoker Current Visit: No Status: Chronic (7) HTN (hypertension) Current Visit: No Status: Chronic Qualifiers: Hypertension type: essential hypertension Qualified Code(s): I10 - Essential (primary) hypertension (8) Hilar mass Current Visit: No Status: Chronic Assessment and plan: Metastatic small cell carcinoma of the lung, followed as outpatient - Time Spent With Patient Total time spent is greater than 50% in coordination of care (as documented) at patient's floor/unit and/or counseling patient:
[2018-04-19] MEDS ORDERED: Cefepime HCl 2,000 MG in D5% in Water (Mini-Bag+) 100 ML IVPB SCH (16:00)
[2018-04-19] MEDS ORDERED: 0.9 % Sodium Chloride 250 ML ONE ×2 (16:35→22:25)
[2018-04-19] MEDS: Pantoprazole 40 MG VIAL IVP SCH ×2 (17:00→21:14)
[2018-04-19] MEDS: 0.9 % Sodium Chloride 1,000 ML IVC SCH (17:00)
[2018-04-19] MEDS: Fluconazole 100 MG/50 ML 100 MG/50 ML BAG IVPB SCH (17:25)
[2018-04-19 17:42] LABS: Bilirubin,Urine Small (Negative); Blood,Urine Negative (Negative); Clarity,Urine Cloudy (Clear); Color,Urine Dark Yellow (Yellow); Glucose,Urine (UA) Normal (Normal); Ketones,Urine Trace mg/dL (Negative); Leukocyte Esterase,Urine Negative (Negative); Nitrite,Urine Negative (Negative); PH,Urine 5.5 pH Units (5.0-8.0); Protein,Urine Trace mg/dL (Neg-Trace); Specific Gravity,Urine 1.024 (1.010-1.025); Urobilinogen,Urine Normal (Normal)
[2018-04-19 17:46] LABS: Bacteria,Urine None Seen per hpf (None-Few); Hyaline Casts,Urine Few per lpf (None-Few); Squamous Epithelial Cell,Urine Many per lpf (None-Few); WBC,Urine 0-3 per hpf (0-3)
[2018-04-19 17:59] LABS: Yeast,Urine Few per hpf (None Seen)
[2018-04-19] MEDS: Cefepime HCl 2,000 MG in Water for inj. (sterile) 20 ML 20 ML IVP SCH (18:16)
[2018-04-19] MEDS: Sucralfate 1 GM TABLET PO SCH ×2 (18:21→21:13)
[2018-04-19] MEDS: Mirtazapine 15 MG TABLET PO SCH (21:13)
[2018-04-20] MEDS ORDERED: OXYCODONE Oral CONC 10 MG/0.5 ML ORAL.SYG SL PRN (02:02)
[2018-04-20 04:50] LABS: Eosinophils % 3.4 %; Hematocrit 28.2 % (35.3-44.9); Hemoglobin 9.7 g/dL (11.5-15.4); Lymphocytes # 0.2 K/mcL (0.6-4.6); Lymphocytes % 55.2 %; Mean Corpuscular HGB Conc 34.4 g/dL (31.6-35.5); Mean Corpuscular Hemoglobin 29.9 pg (28.0-33.3); Mean Platelet Volume 10.9 fL (9.4-12.4); Monocytes # 0.1 K/mcL (0.0-1.3); Monocytes % 24.1 %; Neutrophils # 0.1 K/mcL (1.6-8.9); Red Blood Count 3.24 M/mcL (3.82-4.97); Red Cell Distribution Width 14.2 % (11.5-14.5); Segmented Neutrophils % 17.3 %
[2018-04-20 05:03] LABS: Platelet Count 39 K/mcL (140-400)
[2018-04-20 05:08] LABS: BUN/Creatinine Ratio 22 (6-26); Blood Urea Nitrogen 21 mg/dL (8-23); Calcium 8.1 mg/dL (8.6-10.3); Carbon Dioxide 21 mEq/L (23-29); Chloride 107 mEq/L (98-107); Glucose 91 mg/dL (70-105); Osmolality,Calculated 287 (280-300); Sodium 137 mEq/L (136-145); eGFR For African Americans > 60 (> 60); eGFR For Non-African Americans 57 (> 60)
[2018-04-20 05:24] LABS: Platelet Estimate Decreased (Normal)
[2018-04-20] MEDS: Cefepime HCl 2,000 MG in Water for inj. (sterile) 20 ML 20 ML IVP SCH ×2 (06:00→17:37)
[2018-04-20] MEDS ORDERED: MORPHINE SUL Oral CONC 10 MG/0.5 ML ORAL.SYG SL PRN ×2 (09:57→09:58)
[2018-04-20] MEDS: 0.9 % Sodium Chloride 1,000 ML IVC SCH (10:11)
[2018-04-20] MEDS: Pantoprazole 40 MG VIAL IVP SCH ×2 (10:12→21:03)
[2018-04-20] MEDS: BuPROPion XL (24 HR) 150 MG TABLET PO SCH (10:12)
[2018-04-20] MEDS: Sucralfate 1 GM TABLET PO SCH (10:12)
[2018-04-20] MEDS: Fluconazole 100 MG/50 ML 100 MG/50 ML BAG IVPB SCH (10:15)
[2018-04-20] MEDS ORDERED: valACYclovir 500 MG TABLET PO SCH (10:30)
[2018-04-20] MEDS ORDERED: GI Cocktail 40 ML EACH PO SCH (10:30)
--- NOTE | 2018-04-20 11:27 | Gastroenterology Consult Note ---
<Víctor Vasquez - Last Filed: 04/20/18 11:25> Date of Encounter: 04/20/18 Time of Encounter: 10:15 - Assessment and plan (1) Odynophagia Current Visit: Yes Status: Acute Assessment and plan: Patient with difficulty swallowing due to pain. Unable to complete EGD at this time due to neutropenia. Continue Diflucan. Change Carafate to liquid. Start antiviral and GI cocktail. When she is no longer neutropenic we will consider EGD. (2) Anemia Current Visit: Yes Status: Acute Assessment and plan: Continue to monitor CBC and transfuse PRBC as needed. Qualifiers: Anemia type: unspecified type Qualified Code(s): D64.9 - Anemia, unspecified (3) Severe neutropenia Current Visit: Yes Status: Acute (4) Small cell lung cancer Current Visit: No Status: Acute - Time Spent With Patient Total time spent is greater than 50% in coordination of care (as documented) at patient's floor/unit and/or counseling patient: GI History of Present Illness - Data of Consult Patient: new to practice Consult date: 04/20/18 Requesting Physician: Austin Alvarez MD - Consult Narrative Reason for consult: Odynophagia History of present illness: Ms. 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 She does not complain of melena or bright red blood per rectum. Today WBC 0.3 with neutrophil count of 0.1. Procedures: None NSAIDs: None Anticoagulation: None Past Med Surg Social Fam HX - Past Medical History Medical history: GERD, hyperlipidemia, hypertension, myocardial infarction, renal disease, thyroid disease Psychiatric history: no psych history - Past Surgical History Surgical History: angioplasty/stent - Social History Smoking Status: Former smoker Smokeless Tobacco Status: No Alcohol use: none Drug use: none - Family History Mother Family Member Ethnicity: Non- Living Status: Hx Family Cardiac Disorders: Yes (HTN) Hx Family Neurologic Disorders: Yes (CVA) Father Family Member Ethnicity: Non- Living Status: Hx Family Cardiac Disorders: Yes (Aneurysm) Hx Family Cancer: Yes (Colon) Brother Family Member Ethnicity: Non- Living Status: Hx Family Cancer: Yes Sister Family Member Ethnicity: Non- Living Status: Hx Family Cancer: Yes - Gastrointestinal Gastrointestinal: Present: as per HPI - Constitutional Constitutional: as per HPI - EENT Eyes: as per HPI Ears: Present: as per HPI Nose, mouth and throat: Present: as per HPI - Cardiovascular Cardiovascular ROS: Present: as per HPI - Respiratory Respiratory IM: Present: as per HPI - Genitourinary Genitourinary: Absent: change in color, Urinary frequency - Neurological ROS Neurological GI: Present: as per HPI - Hematologic/Lymphatic Hematologic/Lymphatic pediatric: Present: as per HPI - Musculoskeletal Musculoskeletal ROS GI: Present: as per HPI - Integumentary Integumentary GI: Present: as per HPI - Psychiatric ROS Psychiatric GI: Present: as per HPI - Endocrine Endocrine IM: Present: as per HPI - Constitutional Vitals: Temp Pulse Resp BP Pulse Ox 97.8 F 102 20 137/80 94 04/20/18 10:33 04/20/18 10:33 04/20/18 10:33 04/20/18 10:33 04/20/18 10:33 General appearance: Present: cooperative, A&O X 3, no acute distress, answers questions appropriately - Head Head exam: Present: atraumatic, normocephalic - Eye Eye exam: Present: normal appearance, sclera anicteric - ENT ENT exam: Present: mucous membranes moist - Neck Neck exam general surgery: Present: normal inspection, trachea midline - Respiratory Respiratory exam: Present: decreased breath sounds, CTAB - Cardiovascular Cardiovascular exam: Present: RRR, +S1, +S2 - GI/Abdominal GI/Abdominal exam: Present: soft, tenderness (epigastric), no peritoneal signs. Absent: distended, firm, guarding - Rectal Rectal exam: Present: deferred - Extremities Exam Extremities exam: Present: warm - Neurological Exam Neurological exam: Present: no focal deficits - Psychiatric Psychiatric exam: Present: normal affect, normal mood - Skin Skin exam: Present: dry, intact, normal color, warm Results - Labs CBC & Chem 7: 04/20/18 04:28 04/20/18 04:28 Labs: Last Result Calcium 8.1 mg/dL (8.6-10.3) L 04/20/18 04:28 Troponin I 0.03 ng/mL (< 0.04) 04/19/18 13:10 Entire Visit Hgb 9.7 g/dL (11.5-15.4) L D 04/20/18 04:28 Hct 28.2 % (35.3-44.9) L 04/20/18 04:28 Consult Discharge Plan - Plan Referrals: Hebert Ryan DO [Primary Care Provider] - <Leandra Cooper - Last Filed: 04/20/18 13:23> Date of Encounter: 04/20/18 - Time Spent With Patient Total time spent is greater than 50% in coordination of care (as documented) at patient's floor/unit and/or counseling patient: GI History of Present Illness - Data of Consult Requesting Physician: Austin Alvarez MD - Consult Narrative History of present illness: Ms. Deng is a 72 year old female - Constitutional Vitals: Temp Pulse Resp BP Pulse Ox 97.8 F 102 20 137/80 94 04/20/18 10:33 04/20/18 10:33 04/20/18 10:33 04/20/18 10:33 04/20/18 10:33 Results - Labs CBC & Chem 7: 04/20/18 04:28 04/20/18 04:28 Labs: Last Result Calcium 8.1 mg/dL (8.6-10.3) L 04/20/18 04:28 Troponin I 0.03 ng/mL (< 0.04) 04/19/18 13:10 Entire Visit Hgb 9.7 g/dL (11.5-15.4) L D 04/20/18 04:28 Hct 28.2 % (35.3-44.9) L 04/20/18 04:28 - Attending Attestation I have personally performed a face to face evaluation on this patient. I have reviewed and agree with the care plan. History and Exam by me shows: PT seen patient with severe odynophagia. Status post-chemoradiation therapy for small cell lung cancer. Most probably odynophagia is due to radiation esophagitis but can also have infectious esophagitis also. Has severe neutropenia. emperic treatment including GI cocktail antifungal and possible antiviral. No need for EGD
[2018-04-20] MEDS: valACYclovir 500 MG TABLET PO SCH (13:27)
[2018-04-20] MEDS: MORPHINE SUL Oral CONC 10 MG/0.5 ML ORAL.SYG SL PRN ×2 (16:02→21:04)
[2018-04-20] MEDS: GI Cocktail 40 ML EACH PO SCH ×2 (16:15→21:03)
[2018-04-20] MEDS: Magic Mouthwash 10 ML UD Cup PO SCH (16:15)
[2018-04-20] MEDS: Ipratropium/Albuterol Neb 3 ML IH SCH ×2 (16:30→21:50)
--- NOTE | 2018-04-20 16:33 | Internal Med Progress Note ---
Date of Encounter: 04/20/18 Time of Encounter: 10:00 - Assessment and plan (1) Esophagitis Current Visit: Yes Status: Acute Assessment and plan: 04/20: I discussed the case with gastroenterology as well as oncology. 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 Cannot rule out candidal esophagitis especially with her degree of neutropenia. Patient is day #2 of Diflucan Carafate liquid BMX solution as needed for symptomatic control Day #1 of Valtrex for possible HSV infection - empiric treatment Patient is day #2 of IV cefepime. Not convinced she has a bacterial infection. The severity of her illness and her profound neutropenia, I will continue this for now but hopefully stop soon. No obvious other identifiable source of infection Urinalysis is negative Chest x-ray shows a right lower lobe airspace opacity which is unchanged from February 2018 as well as a right infrahilar mass. COPD changes noted as well Would not perform EGD at this time due to thrombocytopenia and neutropenia. She needed to treat empirically Oral morphine, Roxanol ordered for pain (2) HTN (hypertension) Current Visit: No Status: Chronic Assessment and plan: Pressure mildly elevated, likely secondary to pain. Monitor. Qualifiers: Hypertension type: essential hypertension Qualified Code(s): I10 - Essential (primary) hypertension (3) Former smoker Current Visit: No Status: Chronic (4) Hilar mass Current Visit: No Status: Chronic Assessment and plan: Metastatic small cell carcinoma of the lung, followed as outpatient (5) Chronic respiratory failure with hypoxia Current Visit: No Status: Acute Assessment and plan: Stable Do not suspect an acute exacerbation. Bronchodilators and sent to spirometry. Monitor (6) Dehydration Current Visit: Yes Status: Acute Assessment and plan: IV fluids Continue 0.9 normal saline at 75 mL's per hour. Monitor. (7) Pancytopenia due to antineoplastic chemotherapy Current Visit: Yes Status: Acute Assessment and plan: Patient with neutropenia, anemia, and thrombocytopenia. No indication for acute transfusion of blood or platelets at this time. She did receive 2 units of packed red blood cells last night. - Time Spent With Patient Total time spent is greater than 50% in coordination of care (as documented) at patient's floor/unit and/or counseling patient: 25 - 35 minutes - Subjective Interval history: Ms. 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 Chest x-ray showed a right basilar airspace opacity unchanged from before likely from her prior mass. Total white blood cell count today 0.2 and total neutrophil count is 0.1, platelets are 48 and hemoglobin has dropped down to 7. She does not complain of melena or bright red blood per rectum. Was given a dose of aspirin might AMS. Troponin is normal. Oncology has been called by the ER physician. No fevers, no sick contacts, UA has not been performed yet. 04/20: Patient continues to complain of severe pain on her anterior chest, deep, with difficulty swallowing and painful swallowing. He is denying any shortness of breath. No nausea but she is not taking orals due to pain. No vomiting. Fevers or chills. No abdominal pain. - Constitutional Vitals: Temp Pulse Resp BP Pulse Ox 98.5 F 111 19 165/90 91 04/20/18 15:53 04/20/18 15:53 04/20/18 15:53 04/20/18 15:53 04/20/18 15:53 General appearance: Present: cachectic, mild distress, A&O X 3, underweight - Head Head exam: Present: atraumatic, normocephalic - Eye Eye exam: Present: PERRL, conjuntiva pink, sclera anicteric Pupils: Present: PERRL - ENT ENT exam: Present: mucous membranes dry Additional comments: No lesions noted - Neck Neck exam general surgery: Present: supple, trachea midline. Absent: lymphadenopathy - Respiratory Respiratory exam: Present: decreased breath sounds. Absent: accessory muscle use, rales, rhonchi, wheezes - Cardiovascular Cardiovascular exam: Present: RRR, +S1, +S2. Absent: diastolic murmur, gallop, rubs, systolic murmur - GI/Abdominal GI/Abdominal exam: Present: normal bowel sounds, soft, tenderness (Mild epigastric), no peritoneal signs. Absent: distended - Extremities Exam Extremities exam: Present: warm, radial pulses palpable and symmetrical. Absent : calf tenderness, cyanotic, pedal edema Additional comments: Capillary refill less than 2.5 second - Neurological Exam Neurological exam: Present: CN II-XII intact, oriented X3, no focal deficits. Absent: pronater drift, facial droop, speech deficit - Skin Skin exam: Present: dry, intact Additional comments: Skin is thin with diminished turgor Internal Medicine: Result - Labs CBC & Chem 7: 04/20/18 04:28 04/20/18 04:28 Labs: Short CBC 04/20/18 Range/Units 04:28 WBC 0.3 L* (4.3-11.1) K/mcL Hgb 9.7 L D (11.5-15.4) g/dL Hct 28.2 L (35.3-44.9) % Plt Count 39 L (140-400) K/mcL Neutrophils # 0.1 L (1.6-8.9) K/mcL BMP 04/20/18 04:28 Sodium 137 Potassium 4.0 Chloride 107 Carbon Dioxide 21 L BUN 21 Creatinine 0.96 Glucose 91 Calcium 8.1 L Urine 04/19/18 Range/Units 17:25 Urine Color Dark Yellow (Yellow) Urine Clarity Cloudy A (Clear) Urine pH 5.5 (5.0-8.0) pH Units Ur Specific Robbins 1.024 (1.010-1.025) Urine Protein Trace (Neg-Trace) mg/dL Urine Glucose (UA) Normal (Normal) mg/dL Consult Discharge Plan - Plan Referrals: Hebert Ryan DO [Primary Care Provider] -
--- NOTE | 2018-04-20 18:04 | Electrocardiograph Report ---
[email or web address] Test Date: 2018-04-19 Pat Name: Naya Deng Department: 103 Room: 3A25 Gender: F [employer] Analyst: TOMMIE : [id number] Requested By: Juan C Araujo Order Number: [id number] Reading MD: Deonte Banks Measurements Intervals Badin Rate: 105 P: 63 VT: 137 QRS: 34 QRSD: 85 T: 18 QT: 345 QTc: 406 Interpretive Statements SINUS TACHYCARDIA ABNORMAL RHYTHM ECG Electronically Signed On 04-20-2018 18:03:25 EDT by Deonte Banks
[2018-04-20] MEDS: Mirtazapine 15 MG TABLET PO SCH (21:03)
[2018-04-21] MEDS: Ipratropium/Albuterol Neb 3 ML IH SCH ×4 (04:17→22:06)
[2018-04-21] MEDS: Cefepime HCl 2,000 MG in Water for inj. (sterile) 20 ML 20 ML IVP SCH ×2 (05:39→17:06)
[2018-04-21] MEDS: Magic Mouthwash 10 ML UD Cup PO SCH ×3 (08:32→16:44)
[2018-04-21] MEDS: Pantoprazole 40 MG VIAL IVP SCH ×2 (08:33→21:47)
[2018-04-21] MEDS: Fluconazole 100 MG/50 ML 100 MG/50 ML BAG IVPB SCH (08:33)
[2018-04-21] MEDS: GI Cocktail 40 ML EACH PO SCH ×2 (08:33→21:48)
[2018-04-21] MEDS: valACYclovir 500 MG TABLET PO SCH (08:34)
[2018-04-21] MEDS: BuPROPion XL (24 HR) 150 MG TABLET PO SCH (08:34)
[2018-04-21 09:27] LABS: Hematocrit 35.3 % (35.3-44.9); Hemoglobin 11.6 g/dL (11.5-15.4); Mean Corpuscular HGB Conc 32.9 g/dL (31.6-35.5); Mean Corpuscular Hemoglobin 28.8 pg (28.0-33.3); Mean Corpuscular Volume 87.6 fL (83.0-100.0); Neutrophils # 0.1 K/mcL (1.6-8.9); Red Blood Count 4.03 M/mcL (3.82-4.97); Red Cell Distribution Width 14.7 % (11.5-14.5)
[2018-04-21 09:48] LABS: BUN/Creatinine Ratio 19 (6-26); Blood Urea Nitrogen 20 mg/dL (8-23); Calcium 9.1 mg/dL (8.6-10.3); Carbon Dioxide 23 mEq/L (23-29); Chloride 104 mEq/L (98-107); Glucose 108 mg/dL (70-105); Osmolality,Calculated 289 (280-300); Potassium 3.7 mEq/L (3.5-5.1); Sodium 138 mEq/L (136-145); eGFR For African Americans > 60 (> 60); eGFR For Non-African Americans 52 (> 60)
[2018-04-21 09:54] LABS: Platelet Count 53 K/mcL (140-400)
[2018-04-21 11:20] LABS: Lymphocytes # 0.3 K/mcL (0.6-4.6)
[2018-04-21 11:21] LABS: Platelet Estimate Decreased (Normal)
[2018-04-21] MEDS: MORPHINE SUL Oral CONC 10 MG/0.5 ML ORAL.SYG SL PRN ×3 (12:53→21:48)
--- NOTE | 2018-04-21 13:23 | Internal Med Progress Note ---
Date of Encounter: 04/21/18 Time of Encounter: 10:00 - Assessment and plan (1) Esophagitis Current Visit: Yes Status: Acute Assessment and plan: 04/20: I discussed the case with gastroenterology as well as oncology. 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 Cannot rule out candidal esophagitis especially with her degree of neutropenia. Patient is day #2 of Diflucan Carafate liquid BMX solution as needed for symptomatic control Day #1 of Valtrex for possible HSV infection - empiric treatment Patient is day #2 of IV cefepime. Not convinced she has a bacterial infection. The severity of her illness and her profound neutropenia, I will continue this for now but hopefully stop soon. No obvious other identifiable source of infection Urinalysis is negative Chest x-ray shows a right lower lobe airspace opacity which is unchanged from February 2018 as well as a right infrahilar mass. COPD changes noted as well Would not perform EGD at this time due to thrombocytopenia and neutropenia. She needed to treat empirically Oral morphine, Roxanol ordered for pain 04/21: Improving Day #3 of Diflucan IV for possible candidal esophagitis Day #2 with empiric Valtrex for possible HSV infection Day #3 of IV cefepime. Patient continues to have low-grade fever, we will continue broad-spectrum antibiotics until bacterial infection ruled out. Despite low-grade fever clinically she is improved. (2) HTN (hypertension) Current Visit: No Status: Chronic Assessment and plan: Pressure mildly elevated, likely secondary to pain. Monitor. Qualifiers: Hypertension type: essential hypertension Qualified Code(s): I10 - Essential (primary) hypertension (3) Former smoker Current Visit: No Status: Chronic (4) Hilar mass Current Visit: No Status: Chronic Assessment and plan: Metastatic small cell carcinoma of the lung, followed as outpatient (5) Chronic respiratory failure with hypoxia Current Visit: No Status: Acute Assessment and plan: Stable Do not suspect an acute exacerbation. Bronchodilators and sent to spirometry. Monitor (6) Dehydration Current Visit: Yes Status: Acute Assessment and plan: IV fluids Continue 0.9 normal saline at 75 mL's per hour. Monitor. (7) Pancytopenia due to antineoplastic chemotherapy Current Visit: Yes Status: Acute Assessment and plan: Patient with neutropenia, anemia, and thrombocytopenia. No indication for acute transfusion of blood or platelets at this time. She did receive 2 units of packed red blood cells last night. 62: All counts are improving: she still is neutropenic. - Time Spent With Patient Total time spent is greater than 50% in coordination of care (as documented) at patient's floor/unit and/or counseling patient: 25 - 35 minutes - Subjective Interval history: Ms. 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 Chest x-ray showed a right basilar airspace opacity unchanged from before likely from her prior mass. Total white blood cell count today 0.2 and total neutrophil count is 0.1, platelets are 48 and hemoglobin has dropped down to 7. She does not complain of melena or bright red blood per rectum. Was given a dose of aspirin might AMS. Troponin is normal. Oncology has been called by the ER physician. No fevers, no sick contacts, UA has not been performed yet. 04/20: Patient continues to complain of severe pain on her anterior chest, deep, with difficulty swallowing and painful swallowing. He is denying any shortness of breath. No nausea but she is not taking orals due to pain. No vomiting. Fevers or chills. No abdominal pain. 04/21: Patient states her symptoms are much improved. She still has some anterior chest wall pain and dental aphasia but is much better. No shortness of breath. No nausea or vomiting. No fevers or chills. Her pancytopenia is trending favorably, current white count is up to 0.5 (0.2 on admission). Plts and hemoglobin are also increasing to platelet of 53,000, hemoglobin of 11.6 - Constitutional Vitals: Temp Pulse Resp BP Pulse Ox 100.5 F H 122 18 124/74 93 04/21/18 11:55 04/21/18 11:55 04/21/18 11:55 04/21/18 11:55 04/21/18 11:55 General appearance: Present: cachectic, mild distress, A&O X 3, underweight - Head Head exam: Present: atraumatic, normocephalic - Eye Eye exam: Present: PERRL, conjuntiva pink, sclera anicteric Pupils: Present: PERRL - Neck Neck exam general surgery: Present: supple, trachea midline. Absent: lymphadenopathy - Respiratory Respiratory exam: Present: CTAB. Absent: accessory muscle use, rales, rhonchi, wheezes - Cardiovascular Cardiovascular exam: Present: RRR, +S1, +S2. Absent: diastolic murmur, gallop, rubs, systolic murmur - GI/Abdominal GI/Abdominal exam: Present: normal bowel sounds, soft, no peritoneal signs. Absent: distended, tenderness - Extremities Exam Extremities exam: Present: warm, radial pulses palpable and symmetrical. Absent : calf tenderness, cyanotic, pedal edema - Neurological Exam Neurological exam: Present: CN II-XII intact, oriented X3, no focal deficits. Absent: pronater drift, facial droop, speech deficit - Skin Skin exam: Present: dry, intact Internal Medicine: Result - Labs CBC & Chem 7: 04/21/18 08:58 04/21/18 08:58 Labs: Short CBC 04/21/18 Range/Units 08:58 WBC 0.5 L* D (4.3-11.1) K/mcL Hgb 11.6 D (11.5-15.4) g/dL Hct 35.3 (35.3-44.9) % Plt Count 53 L (140-400) K/mcL Neutrophils # 0.1 L (1.6-8.9) K/mcL BMP 04/21/18 08:58 Sodium 138 Potassium 3.7 Chloride 104 Carbon Dioxide 23 BUN 20 Creatinine 1.05 Glucose 108 H Calcium 9.1 - VTE Documentation of Mechanical Device: Intermittent pneumatic compression device Consult Discharge Plan - Plan Referrals: Hebert Ryan DO [Primary Care Provider] -
[2018-04-21] MEDS: 0.9 % Sodium Chloride w KCl 20 MEQ/1,000 ML MLS IVC SCH (13:33)
[2018-04-21] MEDS: Mirtazapine 15 MG TABLET PO SCH (21:47)
[2018-04-22] MEDS: Ipratropium/Albuterol Neb 3 ML IH SCH ×4 (04:28→21:39)
[2018-04-22] MEDS: Cefepime HCl 2,000 MG in Water for inj. (sterile) 20 ML 20 ML IVP SCH ×2 (05:13→17:35)
[2018-04-22] MEDS: 0.9 % Sodium Chloride w KCl 20 MEQ/1,000 ML MLS IVC SCH ×2 (05:17→16:36)
[2018-04-22] MEDS: MORPHINE SUL Oral CONC 10 MG/0.5 ML ORAL.SYG SL PRN ×3 (07:35→16:38)
[2018-04-22] MEDS: Fluconazole 100 MG/50 ML 100 MG/50 ML BAG IVPB SCH (07:36)
[2018-04-22] MEDS: GI Cocktail 40 ML EACH PO SCH ×2 (07:37→21:32)
[2018-04-22] MEDS: Pantoprazole 40 MG VIAL IVP SCH ×2 (07:37→21:32)
[2018-04-22] MEDS: valACYclovir 500 MG TABLET PO SCH (07:40)
[2018-04-22] MEDS: BuPROPion XL (24 HR) 150 MG TABLET PO SCH (07:40)
[2018-04-22] MEDS: Magic Mouthwash 10 ML UD Cup PO SCH ×3 (07:40→16:38)
--- NOTE | 2018-04-22 11:37 | Internal Med Progress Note ---
Date of Encounter: 04/22/18 Time of Encounter: 09:15 - Assessment and plan (1) Esophagitis Current Visit: Yes Status: Acute Assessment and plan: 04/20: I discussed the case with gastroenterology as well as oncology. 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 Cannot rule out candidal esophagitis especially with her degree of neutropenia. Patient is day #2 of Diflucan Carafate liquid BMX solution as needed for symptomatic control Day #1 of Valtrex for possible HSV infection - empiric treatment Patient is day #2 of IV cefepime. Not convinced she has a bacterial infection. The severity of her illness and her profound neutropenia, I will continue this for now but hopefully stop soon. No obvious other identifiable source of infection Urinalysis is negative Chest x-ray shows a right lower lobe airspace opacity which is unchanged from February 2018 as well as a right infrahilar mass. COPD changes noted as well Would not perform EGD at this time due to thrombocytopenia and neutropenia. 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 Improving Day #4 of Diflucan IV for possible candidal esophagitis Day #3 with empiric Valtrex for possible HSV infection Day #4 Cefepime (due to neutropenic fever) Carafate Continue with current plan, advance diet as tolerated. BMX solution and opioid analgesics as needed. Poss future EGD. GI has evaluated this pt. (2) HTN (hypertension) Current Visit: No Status: Chronic Assessment and plan: Pressure mildly elevated, likely secondary to pain. Monitor. Qualifiers: Hypertension type: essential hypertension Qualified Code(s): I10 - Essential (primary) hypertension (3) Former smoker Current Visit: No Status: Chronic (4) Hilar mass Current Visit: No Status: Chronic Assessment and plan: Metastatic small cell carcinoma of the lung, followed as outpatient (5) Chronic respiratory failure with hypoxia Current Visit: No Status: Acute Assessment and plan: Stable Do not suspect an acute exacerbation. Bronchodilators and sent to spirometry. Monitor On 2 L per NC, this is her baseline (6) Dehydration Current Visit: Yes Status: Acute Assessment and plan: IV fluids Continue 0.9 normal saline at 75 mL's per hour. Monitor. Improving (7) Pancytopenia due to antineoplastic chemotherapy Current Visit: Yes Status: Acute Assessment and plan: Patient with neutropenia, anemia, and thrombocytopenia. No indication for acute transfusion of blood or platelets at this time. She did receive 2 units of packed red blood cells last night. 2: All counts are improving: she still is neutropenic. (8) Neutropenic fever Current Visit: Yes Status: Acute Assessment and plan: Day #4 Cefepime. Urine cultures and blood cultures all negative. No obvious pneumonia on chest x-ray. She does have a right lower lobe airspace opacity which is not new, as well as right infrahilar mass which is her known malignancy, documented on PET scan in February 2018. Would continue IV cefepime until neutropenia is resolved (ANC >500) Current ANC= 500 x 0.22 = 110 I suspect her fevers are due to her radiation esophagitis. I do not suspect a systemic infection at this point. (9) Protein calorie malnutrition Current Visit: Yes Status: Acute Assessment and plan: Nutrition therapy consult Qualifiers: Protein-calorie malnutrition severity: moderate Qualified Code(s): E44.0 - Moderate protein-calorie malnutrition - Time Spent With Patient Total time spent is greater than 50% in coordination of care (as documented) at patient's floor/unit and/or counseling patient: 25 - 35 minutes - Subjective Interval history: Ms. 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 Chest x-ray showed a right basilar airspace opacity unchanged from before likely from her prior mass. Total white blood cell count today 0.2 and total neutrophil count is 0.1, platelets are 48 and hemoglobin has dropped down to 7. She does not complain of melena or bright red blood per rectum. Was given a dose of aspirin might AMS. Troponin is normal. Oncology has been called by the ER physician. No fevers, no sick contacts, UA has not been performed yet. 04/20: Patient continues to complain of severe pain on her anterior chest, deep, with difficulty swallowing and painful swallowing. He is denying any shortness of breath. No nausea but she is not taking orals due to pain. No vomiting. Fevers or chills. No abdominal pain. 04/21: Patient states her symptoms are much improved. She still has some anterior chest wall pain and dental aphasia but is much better. No shortness of breath. No nausea or vomiting. No fevers or chills. Her pancytopenia is trending favorably, current white count is up to 0.5 (0.2 on admission). Plts and hemoglobin are also increasing to platelet of 53,000, hemoglobin of 11.6 04/22: Patient continues to have significant pain in her anterior chest wall consistent with her diagnosis of esophagitis. It is improving, but she still is having trouble eating due to pain. She has no fevers. He does remain mildly tachycardic, which I suspect is due to pain. He has not vomited. No shortness of breath. Diarrhea. No abdominal pain. We continue efforts to advance diet. - Constitutional Vitals: Temp Pulse Resp BP Pulse Ox 98.2 F 125 18 134/85 94 04/22/18 11:28 04/22/18 11:28 04/22/18 11:28 04/22/18 11:28 04/22/18 11:28 General appearance: Present: cachectic, mild distress, A&O X 3, underweight - Head Head exam: Present: atraumatic, normocephalic - Eye Eye exam: Present: PERRL, conjuntiva pink, sclera anicteric Pupils: Present: PERRL - Neck Neck exam general surgery: Present: supple, trachea midline. Absent: lymphadenopathy - Respiratory Respiratory exam: Present: CTAB. Absent: accessory muscle use, rales, rhonchi, wheezes - Cardiovascular Cardiovascular exam: Present: RRR, +S1, +S2. Absent: diastolic murmur, gallop, rubs, systolic murmur - GI/Abdominal GI/Abdominal exam: Present: normal bowel sounds, soft, no peritoneal signs. Absent: distended, tenderness - Extremities Exam Extremities exam: Present: warm, radial pulses palpable and symmetrical. Absent : calf tenderness, cyanotic, pedal edema - Neurological Exam Neurological exam: Present: CN II-XII intact, oriented X3, no focal deficits. Absent: pronater drift, facial droop, speech deficit - Skin Skin exam: Present: dry, intact Additional comments: thin skin Internal Medicine: Result - Labs CBC & Chem 7: 04/21/18 08:58 04/21/18 08:58 - VTE Documentation of Mechanical Device: Intermittent pneumatic compression device Consult Discharge Plan - Plan Referrals: Hebert Ryan DO [Primary Care Provider] -
[2018-04-22] MEDS: Mirtazapine 15 MG TABLET PO SCH (21:32)
[2018-04-23] MEDS: Ipratropium/Albuterol Neb 3 ML IH SCH ×4 (03:58→21:05)
[2018-04-23] MEDS: 0.9 % Sodium Chloride w KCl 20 MEQ/1,000 ML MLS IVC SCH (04:36)
[2018-04-23] MEDS: Cefepime HCl 2,000 MG in Water for inj. (sterile) 20 ML 20 ML IVP SCH ×2 (06:46→17:00)
[2018-04-23] MEDS: Magic Mouthwash 10 ML UD Cup PO SCH ×3 (08:37→17:00)
[2018-04-23] MEDS: Pantoprazole 40 MG VIAL IVP SCH ×2 (08:37→23:32)
[2018-04-23] MEDS: GI Cocktail 40 ML EACH PO SCH ×2 (08:37→23:32)
[2018-04-23] MEDS: valACYclovir 500 MG TABLET PO SCH (08:38)
[2018-04-23] MEDS: BuPROPion XL (24 HR) 150 MG TABLET PO SCH (08:38)
[2018-04-23] MEDS: MORPHINE SUL Oral CONC 10 MG/0.5 ML ORAL.SYG SL PRN ×3 (09:02→23:33)
[2018-04-23] MEDS: Fluconazole 100 MG/50 ML 100 MG/50 ML BAG IVPB SCH (12:27)
[2018-04-23 14:38] LABS: Red Cell Distribution Width 14.4 % (11.5-14.5)
[2018-04-23 14:40] LABS: Hematocrit 28.8 % (35.3-44.9); Hemoglobin 9.3 g/dL (11.5-15.4); Immature Granulocytes % 0.6 % (0-4); Lymphocytes # 0.3 K/mcL (0.6-4.6); Lymphocytes % 19.8 %; Mean Corpuscular HGB Conc 32.3 g/dL (31.6-35.5); Mean Corpuscular Hemoglobin 28.7 pg (28.0-33.3); Mean Corpuscular Volume 88.9 fL (83.0-100.0); Mean Platelet Volume 10.8 fL (9.4-12.4); Monocytes # 0.2 K/mcL (0.0-1.3); Monocytes % 10.5 %; Neutrophils # 1.1 K/mcL (1.6-8.9); Red Blood Count 3.24 M/mcL (3.82-4.97); Segmented Neutrophils % 69.1 %
[2018-04-23 14:41] LABS: Platelet Count 57 K/mcL (140-400)
[2018-04-23 15:03] LABS: Alanine Aminotransferase 7 Units/L (7-52); Albumin 2.8 g/dL (3.5-5.7); Albumin/Globulin Ratio 1.2 (1.1-2.2); Alkaline Phosphatase 59 Units/L (34-104); Aspartate Amino Transferase 16 Units/L (13-39); BUN/Creatinine Ratio 18 (6-26); Bilirubin,Total 0.3 mg/dL (0.3-1.0); Blood Urea Nitrogen 15 mg/dL (8-23); Carbon Dioxide 21 mEq/L (23-29); Chloride 111 mEq/L (98-107); Globulin 2.4 g/dL (2.4-3.5); Glucose 96 mg/dL (70-105); Osmolality,Calculated 289 (280-300); Potassium 3.9 mEq/L (3.5-5.1); Sodium 139 mEq/L (136-145); Total Protein 5.2 g/dL (6.4-8.9); eGFR For African Americans > 60 (> 60); eGFR For Non-African Americans > 60 (> 60)
[2018-04-23 15:13] LABS: Platelet Estimate Decreased (Normal)
--- NOTE | 2018-04-23 15:41 | Internal Med Progress Note ---
Date of Encounter: 04/23/18 Time of Encounter: 15:40 - Assessment and plan (1) Esophagitis Current Visit: Yes Status: Acute Assessment and plan: Improving Day #5 of Diflucan IV for possible candidal esophagitis Day #4 with empiric Valtrex for possible HSV infection Day #5 Cefepime (due to neutropenic fever) Carafate and PPI Continue with current plan, advance diet as tolerated. BMX solution and opioid analgesics as needed. Possible EGD in AM talked to GI Will keep her NPO after mid night (2) Neutropenic fever Current Visit: Yes Status: Acute Assessment and plan: Day #5 Cefepime Afebrile Urine cultures and blood cultures all negative. No obvious pneumonia on chest x-ray ANC -1115 Improving (3) Pancytopenia due to antineoplastic chemotherapy Current Visit: Yes Status: Acute Assessment and plan: Improving slowly (4) Dehydration Current Visit: Yes Status: Acute Assessment and plan: Improving since pt is able to take some PO intake will cut back on IVF (5) HTN (hypertension) Current Visit: No Status: Chronic Assessment and plan: Pressure mildly elevated, likely secondary to pain. Monitor. Qualifiers: Hypertension type: essential hypertension Qualified Code(s): I10 - Essential (primary) hypertension (6) Former smoker Current Visit: No Status: Chronic (7) Hilar mass Current Visit: No Status: Chronic Assessment and plan: Metastatic small cell carcinoma of the lung, followed as outpatient (8) Chronic respiratory failure with hypoxia Current Visit: No Status: Acute Assessment and plan: Stable Not in exacerbation (9) Protein calorie malnutrition Current Visit: Yes Status: Acute Qualifiers: Protein-calorie malnutrition severity: moderate Qualified Code(s): E44.0 - Moderate protein-calorie malnutrition - Time Spent With Patient Total time spent is greater than 50% in coordination of care (as documented) at patient's floor/unit and/or counseling patient: - Subjective Interval history: Pt states she is feeling little better. Able to swallow liquids are ok. denied any fever / chills. No N/V. - Constitutional Vitals: Temp Pulse Resp BP Pulse Ox 97.6 F 115 16 127/72 90 04/23/18 10:49 04/23/18 15:32 04/23/18 15:32 04/23/18 15:32 04/23/18 15:32 General appearance: Present: cachectic, A&O X 3, underweight - Head Head exam: Present: atraumatic, normal inspection - Neck Neck exam general surgery: Present: supple - Respiratory Respiratory exam: Present: decreased breath sounds. Absent: rales, respiratory distress, rhonchi, wheezes - Cardiovascular Cardiovascular exam: Present: RRR, +S1, +S2. Absent: tachycardia - GI/Abdominal GI/Abdominal exam: Present: normal bowel sounds, soft. Absent: rebound, rigid, tenderness - Extremities Exam Extremities exam: Absent: calf tenderness, pedal edema, tenderness - Back Exam Back exam: Absent: CVA tenderness (L), CVA tenderness (R) - Neurological Exam Neurological exam: Present: alert, oriented X3 - Psychiatric Psychiatric exam: Present: normal affect, normal mood Internal Medicine: Result - Labs CBC & Chem 7: 04/23/18 14:12 04/23/18 14:12 Labs: Short CBC 04/23/18 Range/Units 14:12 WBC 1.6 L D (4.3-11.1) K/mcL Hgb 9.3 L D (11.5-15.4) g/dL Hct 28.8 L (35.3-44.9) % Plt Count 57 L (140-400) K/mcL Neutrophils # 1.1 L (1.6-8.9) K/mcL BMP 04/23/18 14:12 Sodium 139 Potassium 3.9 Chloride 111 H Carbon Dioxide 21 L BUN 15 Creatinine 0.82 Glucose 96 Calcium 8.0 L Liver Function 04/23/18 Range/Units 14:12 Total Bilirubin 0.3 (0.3-1.0) mg/dL AST 16 (13-39) Units/L ALT 7 (7-52) Units/L Alkaline Phosphatase 59 (34-104) Units/L Albumin 2.8 L (3.5-5.7) g/dL - VTE Documentation of Mechanical Device: Intermittent pneumatic compression device Consult Discharge Plan - Plan Referrals: Hebert Ryan DO [Primary Care Provider] -
--- NOTE | 2018-04-23 15:53 | Oncology Inp Consult Note ---
<Annmarie Lazo - Last Filed: 04/23/18 16:51> Date of Encounter: 04/23/18 Time of Encounter: 15:00 Assessment and Plan (1) Esophagitis Status: Acute Assessment and plan: Consistent with radiation induced esophagitis. Able to tolerate only ice chips at this time, with very little to no intake over weekend. Planed for EGD in AM-discussed with patient, patients family and updated nursing staff that if symptoms have improved in am may consider holding off on EGD as symptoms most consistent with radiation induced esophagitis. Continue treatment with Diflucan, magic mouthwash, PPI, carafate and valtrex. Continue to monitor response to treatment, discussed general course of radiation induced esophagitis which will take time to heal. (2) Pancytopenia due to antineoplastic chemotherapy Status: Acute Assessment and plan: Improved, discontinue neutropenic precautions. Since admission Tmax 100.5 on 04/21 No obvious etiology of infection-UA, blood cultures, CXR with no acute findings Continue cefepime (3) Small cell lung cancer Status: Acute Assessment and plan: Current treatment includes concurrent chemoradiotherapy with dose attenuated carboplatin and etoposide initiated 03/21/18. Per Dr. Schwab treating oncologist, radiation on hold indefinitely at this time Will resume systemic treatment on outpatient basis, will plan to re-evaluate recovery and may delay future treatment one week if necessary Will arrange for follow up with Dr. Schwab within one week following discharge Please refer to Dr. Schwab's attestation for additional details. 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 Current treatment includes concurrent chemoradiotherapy with dose attenuated carboplatin and etoposide initiated . Chest x-ray showed a right basilar airspace opacity unchanged from before likely from her prior mass. UA not indicative of UTI. Tmax in ER was 99.7. She was pancytopenic and neutropenic secondary to recent chemotherapy. She presented to the ER on 04/19/2018 with 3 day history of dysphagia/severe odynopahgia, consistent with radiation induced esophagitis. Past Med Surg Social Fam HX - Past Medical History Medical history: GERD, hyperlipidemia, hypertension, myocardial infarction, renal disease, thyroid disease Psychiatric history: no psych history - Past Surgical History Surgical History: angioplasty/stent - Social History Smoking Status: Former smoker Smokeless Tobacco Status: No Alcohol use: none Drug use: none - Family History Mother Family Member Ethnicity: Non- Living Status: Hx Family Cardiac Disorders: Yes (HTN) Hx Family Neurologic Disorders: Yes (CVA) Father Family Member Ethnicity: Non- Living Status: Hx Family Cardiac Disorders: Yes (Aneurysm) Hx Family Cancer: Yes (Colon) Brother Family Member Ethnicity: Non- Living Status: Hx Family Cancer: Yes Sister Family Member Ethnicity: Non- Living Status: Hx Family Cancer: Yes Medications and Allergies Aspirin [Adult Aspirin Regimen] 81 mg PO DAILY 02/25/18 [History] Levothyroxine [Synthroid] 50 mcg PO DAILY 02/25/18 [History] Nitroglycerin [Nitrostat] 0.4 mg SL Q5MIN PRN 02/25/18 [History] Pravastatin Sodium [Pravachol] 20 mg PO HS 02/25/18 [History] Sertraline [Zoloft] 150 mg PO DAILY 02/25/18 [History] buPROPion HCl [Bupropion HCl ER] 300 mg PO DAILY 02/25/18 [History] Mirtazapine [Remeron] 30 mg PO HS 02/26/18 [History] Promethazine [Phenergan] 25 mg PO Q6HR PRN #30 tablet 03/09/18 [Rx] Albuterol Sulfate [Albuterol Inhaler] 1 puff IH Q6HR PRN #1 hfa.[id number].[id number] 03/27/18 [Rx] Oxycodone HCl [Oxycontin] 10 - 20 mg PO Q4H 30 Days #240 tab.er.12h 04/17/18 [Rx ] Albuterol Sulfate [Ventolin Hfa] 2 puff IH Q4-6H PRN 04/19/18 [History] Budesonide/Formoterol 160/4.5 [Symbicort 160/4.5] 2 puff IH BID 04/19/18 [ History] Metoprolol Tartrate [Metoprolol Tartrate] 50 mg PO DAILY PRN 04/19/18 [History] amLODIPine [Norvasc] 5 mg PO DAILY PRN 04/19/18 [History] 3 Allergy/AdvReac Type Severity Reaction Status Date / Time No Known Allergies Allergy Verified 04/09/18 08:04 Constitutional: Present: anorexia, fatigue, weakness, weight loss. Absent: fever(s), frequent falls Eyes: Absent: change in vision Nose, mouth and throat: Present: as per HPI, dysphagia, odynophagia Cardiovascular: Absent: chest pain Respiratory: Present: cough, dyspnea. Absent: hemoptysis Gastrointestinal: Present: constipation. Absent: abdominal pain, nausea, vomiting Genitourinary: Absent: dysuria Musculoskeletal: Present: muscle weakness Integumentary: Absent: wounds Neurological: Present: weakness. Absent: focal weakness, frequent falls Hematologic/Lymphatic: Present: as per HPI Oncology - Exam - Constitutional Vitals: Temp Pulse Resp BP Pulse Ox 97.6 F 115 16 127/72 90 04/23/18 10:49 04/23/18 15:32 04/23/18 15:32 04/23/18 15:32 04/23/18 15:32 General appearance: cooperative, no acute distress, no febrile - Head Head exam: Present: atraumatic - ENT ENT exam: Present: mucous membranes moist - Respiratory Respiratory exam: Present: decreased breath sounds. Absent: respiratory distress - Cardiovascular Cardiovascular exam: Present: RRR, +S1, +S2 - GI/Abdominal GI/Abdominal exam: Present: normal bowel sounds, soft. Absent: guarding, rebound, tenderness - Extremities Exam Extremities exam: Present: normal inspection. Absent: calf tenderness - Neurological Exam Neurological exam: Present: alert, oriented X3, no focal deficits, strengths equal and symetr throughout - Psychiatric Psychiatric exam: Present: normal affect, normal mood - Skin Skin exam: Present: dry, intact, normal color, warm Oncology - Results Labs: 3 04/23/18 04/23/18 04/21/18 14:12 14:12 08:58 WBC 1.6 L D RBC 3.24 L Hgb 9.3 L D Hct 28.8 L MCV 88.9 MCH 28.7 MCHC 32.3 RDW 14.4 Plt Count 57 L MPV 10.8 Immature Gran % 0.6 Seg Neutrophils % 69.1 Lymphocytes % 19.8 Monocytes % 10.5 Eosinophils % 0.0 Basophils % 0.0 Neutrophils # 1.1 L Lymphocytes # 0.3 L Monocytes # 0.2 Eosinophils # 0.0 Basophils # 0.0 Platelet Estimate Decreased L Sodium 139 138 Potassium 3.9 3.7 Chloride 111 H 104 Carbon Dioxide 21 L 23 BUN 15 20 Creatinine 0.82 1.05 Est GFR ( Amer) > 60 > 60 Est GFR (Non-Af Amer) > 60 52 L BUN/Creatinine Ratio 18 19 Glucose 96 108 H Calculated Osmolality 289 289 Calcium 8.0 L 9.1 Total Bilirubin 0.3 AST 16 ALT 7 Alkaline Phosphatase 59 Serum Total Protein 5.2 L Albumin 2.8 L Globulin 2.4 Albumin/Globulin Ratio 1.2 Urine Color Urine Clarity Urine pH Ur Specific Lena Urine Protein Urine Glucose (UA) Urine Ketones Urine Blood Urine Nitrite Urine Bilirubin Urine Urobilinogen Ur Leukocyte Esterase Urine Microscopic WBC Ur Squamous Epith Cells Urine Bacteria Hyaline Casts Urine Yeast Ur Culture Indicated? 3 04/21/18 04/20/18 04/20/18 08:58 04:28 04:28 WBC 0.5 L* D 0.3 L* RBC 4.03 3.24 L Hgb 11.6 D 9.7 L D Hct 35.3 28.2 L MCV 87.6 87.0 MCH 28.8 29.9 MCHC 32.9 34.4 RDW 14.7 H 14.2 Plt Count 53 L 39 L MPV 11.0 10.9 Immature Gran % 0.0 Seg Neutrophils % 22.0 17.3 Lymphocytes % 68.0 55.2 Monocytes % 8.0 24.1 Eosinophils % 3.4 Basophils % 2.0 0.0 Neutrophils # 0.1 L 0.1 L Lymphocytes # 0.3 L 0.2 L Monocytes # 0.0 0.1 Eosinophils # 0.0 Basophils # 0.0 0.0 Platelet Estimate Decreased L Decreased L Sodium 137 Potassium 4.0 Chloride 107 Carbon Dioxide 21 L BUN 21 Creatinine 0.96 Est GFR ( Amer) > 60 Est GFR (Non-Af Amer) 57 L BUN/Creatinine Ratio 22 Glucose 91 Calculated Osmolality 287 Calcium 8.1 L Total Bilirubin AST ALT Alkaline Phosphatase Serum Total Protein Albumin Globulin Albumin/Globulin Ratio Urine Color Urine Clarity Urine pH Ur Specific Lena Urine Protein Urine Glucose (UA) Urine Ketones Urine Blood Urine Nitrite Urine Bilirubin Urine Urobilinogen Ur Leukocyte Esterase Urine Microscopic WBC Ur Squamous Epith Cells Urine Bacteria Hyaline Casts Urine Yeast Ur Culture Indicated? 3 04/19/18 17:25 WBC RBC Hgb Hct MCV MCH MCHC RDW Plt Count MPV Immature Gran % Seg Neutrophils % Lymphocytes % Monocytes % Eosinophils % Basophils % Neutrophils # Lymphocytes # Monocytes # Eosinophils # Basophils # Platelet Estimate Sodium Potassium Chloride Carbon Dioxide BUN Creatinine Est GFR ( Amer) Est GFR (Non-Af Amer) BUN/Creatinine Ratio Glucose Calculated Osmolality Calcium Total Bilirubin AST ALT Alkaline Phosphatase Serum Total Protein Albumin Globulin Albumin/Globulin Ratio Urine Color Dark Yellow Urine Clarity Cloudy A Urine pH 5.5 Ur Specific Lena 1.024 Urine Protein Trace Urine Glucose (UA) Normal Urine Ketones Trace H Urine Blood Negative Urine Nitrite Negative Urine Bilirubin Small H Urine Urobilinogen Normal Ur Leukocyte Esterase Negative Urine Microscopic WBC 0-3 Ur Squamous Epith Cells Many H Urine Bacteria None Seen Hyaline Casts Few Urine Yeast Few H Ur Culture Indicated? NO Consult Discharge Plan - Plan Referrals: Hebert Ryan, [Primary Care Provider] - <Miguel Schwab S - Last Filed: 04/23/18 17:15> Date of Encounter: 04/23/18 - Data of Consult Requesting Physician: Austin Alvarez MD Primary Care Provider: Hebert Ryan Family Provider: Mounika Townsend MD - Consult Narrative History of present illness: Ms. Deng is a 72 year old female Oncology - Exam - Constitutional Vitals: Temp Pulse Resp BP Pulse Ox 97.6 F 115 16 127/72 90 04/23/18 10:49 04/23/18 15:32 04/23/18 15:32 04/23/18 15:32 04/23/18 15:32 Oncology - Results Labs: 3 04/23/18 04/23/18 04/21/18 14:12 14:12 08:58 WBC 1.6 L D RBC 3.24 L Hgb 9.3 L D Hct 28.8 L MCV 88.9 MCH 28.7 MCHC 32.3 RDW 14.4 Plt Count 57 L MPV 10.8 Immature Gran % 0.6 Seg Neutrophils % 69.1 Lymphocytes % 19.8 Monocytes % 10.5 Eosinophils % 0.0 Basophils % 0.0 Neutrophils # 1.1 L Lymphocytes # 0.3 L Monocytes # 0.2 Eosinophils # 0.0 Basophils # 0.0 Platelet Estimate Decreased L Sodium 139 138 Potassium 3.9 3.7 Chloride 111 H 104 Carbon Dioxide 21 L 23 BUN 15 20 Creatinine 0.82 1.05 Est GFR ( Amer) > 60 > 60 Est GFR (Non-Af Amer) > 60 52 L BUN/Creatinine Ratio 18 19 Glucose 96 108 H Calculated Osmolality 289 289 Calcium 8.0 L 9.1 Total Bilirubin 0.3 AST 16 ALT 7 Alkaline Phosphatase 59 Serum Total Protein 5.2 L Albumin 2.8 L Globulin 2.4 Albumin/Globulin Ratio 1.2 Urine Color Urine Clarity Urine pH Ur Specific Lena Urine Protein Urine Glucose (UA) Urine Ketones Urine Blood Urine Nitrite Urine Bilirubin Urine Urobilinogen Ur Leukocyte Esterase Urine Microscopic WBC Ur Squamous Epith Cells Urine Bacteria Hyaline Casts Urine Yeast Ur Culture Indicated? 3 04/21/18 04/20/18 04/20/18 08:58 04:28 04:28 WBC 0.5 L* D 0.3 L* RBC 4.03 3.24 L Hgb 11.6 D 9.7 L D Hct 35.3 28.2 L MCV 87.6 87.0 MCH 28.8 29.9 MCHC 32.9 34.4 RDW 14.7 H 14.2 Plt Count 53 L 39 L MPV 11.0 10.9 Immature Gran % 0.0 Seg Neutrophils % 22.0 17.3 Lymphocytes % 68.0 55.2 Monocytes % 8.0 24.1 Eosinophils % 3.4 Basophils % 2.0 0.0 Neutrophils # 0.1 L 0.1 L Lymphocytes # 0.3 L 0.2 L Monocytes # 0.0 0.1 Eosinophils # 0.0 Basophils # 0.0 0.0 Platelet Estimate Decreased L Decreased L Sodium 137 Potassium 4.0 Chloride 107 Carbon Dioxide 21 L BUN 21 Creatinine 0.96 Est GFR ( Amer) > 60 Est GFR (Non-Af Amer) 57 L BUN/Creatinine Ratio 22 Glucose 91 Calculated Osmolality 287 Calcium 8.1 L Total Bilirubin AST ALT Alkaline Phosphatase Serum Total Protein Albumin Globulin Albumin/Globulin Ratio Urine Color Urine Clarity Urine pH Ur Specific Lena Urine Protein Urine Glucose (UA) Urine Ketones Urine Blood Urine Nitrite Urine Bilirubin Urine Urobilinogen Ur Leukocyte Esterase Urine Microscopic WBC Ur Squamous Epith Cells Urine Bacteria Hyaline Casts Urine Yeast Ur Culture Indicated? 3 04/19/18 17:25 WBC RBC Hgb Hct MCV MCH MCHC RDW Plt Count MPV Immature Gran % Seg Neutrophils % Lymphocytes % Monocytes % Eosinophils % Basophils % Neutrophils # Lymphocytes # Monocytes # Eosinophils # Basophils # Platelet Estimate Sodium Potassium Chloride Carbon Dioxide BUN Creatinine Est GFR ( Amer) Est GFR (Non-Af Amer) BUN/Creatinine Ratio Glucose Calculated Osmolality Calcium Total Bilirubin AST ALT Alkaline Phosphatase Serum Total Protein Albumin Globulin Albumin/Globulin Ratio Urine Color Dark Yellow Urine Clarity Cloudy A Urine pH 5.5 Ur Specific Lena 1.024 Urine Protein Trace Urine Glucose (UA) Normal Urine Ketones Trace H Urine Blood Negative Urine Nitrite Negative Urine Bilirubin Small H Urine Urobilinogen Normal Ur Leukocyte Esterase Negative Urine Microscopic WBC 0-3 Ur Squamous Epith Cells Many H Urine Bacteria None Seen Hyaline Casts Few Urine Yeast Few H Ur Culture Indicated? NO - Attending Attestation I examined this patient and my medical decision-making was reviewed with the Advanced Practice Nurse. I agree with the documented findings, disposition and treatment plan as described except to the extent set forth below. Ms. Deng is making a slow recovery from radiation induced esophagitis. As her white blood cell count is recovering from her most recent dose of chemotherapy, I expect her esophagitis to follow suit quickly. I am hopeful next few days to possibly 2 weeks, she will have normal esophageal function. I recommend continued supportive measures with antifungal and antiviral therapy until then. I do not feel strongly about EGD at this juncture; if she is feeling better tomorrow, this may be discontinued. We will discontinue radiation therapy moving forward given the nature of her cancer. This was communicated with the family today and they voiced understanding.
[2018-04-23] MEDS: 0.9 % Sodium Chloride 1,000 ML IVC SCH (17:30)
[2018-04-23] MEDS: Mirtazapine 15 MG TABLET PO SCH (23:32)
[2018-04-24] MEDS: Ipratropium/Albuterol Neb 3 ML IH SCH ×4 (03:59→22:41)
[2018-04-24] MEDS: Cefepime HCl 2,000 MG in Water for inj. (sterile) 20 ML 20 ML IVP SCH ×2 (05:48→17:19)
[2018-04-24 06:32] LABS: Hematocrit 28.5 % (35.3-44.9)
[2018-04-24 06:33] LABS: Hemoglobin 9.5 g/dL (11.5-15.4); Immature Platelets 3.7 % (1.1-6.1); Mean Corpuscular HGB Conc 33.3 g/dL (31.6-35.5); Mean Corpuscular Hemoglobin 29.9 pg (28.0-33.3); Mean Corpuscular Volume 89.6 fL (83.0-100.0); Mean Platelet Volume 11.6 fL (9.4-12.4); Monocytes # 0.2 K/mcL (0.0-1.3); Nucleated Red Blood Cells 3.1 /100 WBC (0); Red Blood Count 3.18 M/mcL (3.82-4.97); Red Cell Distribution Width 14.3 % (11.5-14.5)
[2018-04-24 06:37] LABS: Platelet Count 58 K/mcL (140-400)
[2018-04-24 06:40] LABS: BUN/Creatinine Ratio 15 (6-26); Blood Urea Nitrogen 12 mg/dL (8-23); Calcium 8.1 mg/dL (8.6-10.3); Carbon Dioxide 19 mEq/L (23-29); Chloride 109 mEq/L (98-107); Glucose 82 mg/dL (70-105); Magnesium 1.9 mg/dL (1.6-2.6); Osmolality,Calculated 285 (280-300); Potassium 3.9 mEq/L (3.5-5.1); Sodium 138 mEq/L (136-145); eGFR For African Americans > 60 (> 60); eGFR For Non-African Americans > 60 (> 60)
[2018-04-24] MEDS: Pantoprazole 40 MG VIAL IVP SCH ×2 (07:32→21:04)
[2018-04-24] MEDS: valACYclovir 500 MG TABLET PO SCH (07:32)
[2018-04-24] MEDS: Magic Mouthwash 10 ML UD Cup PO SCH ×3 (07:32→16:24)
[2018-04-24] MEDS: GI Cocktail 40 ML EACH PO SCH ×2 (07:32→21:04)
[2018-04-24] MEDS: BuPROPion XL (24 HR) 150 MG TABLET PO SCH (07:33)
[2018-04-24] MEDS: MORPHINE SUL Oral CONC 10 MG/0.5 ML ORAL.SYG SL PRN ×4 (07:36→21:05)
[2018-04-24] MEDS: Fluconazole 100 MG/50 ML 100 MG/50 ML BAG IVPB SCH (08:32)
[2018-04-24 11:23] LABS: Lymphocytes # 0.4 K/mcL (0.6-4.6); Neutrophils # 1.4 K/mcL (1.6-8.9); Platelet Estimate Marked Decrease (Normal); Toxic Granulation Present (Not Present)
--- NOTE | 2018-04-24 13:37 | Oncology Inp Progress Note ---
<Annmarie Lazo L - Last Filed: 04/24/18 18:42> Date of Encounter: 04/24/18 Time of Encounter: 10:30 (1) Esophagitis Current Visit: Yes Status: Acute Assessment and plan: Symptoms most likely consistent with radiation induced esophagitis. She was able to tolerate about half of her breakfast this morning with report of decreased odynophagia/dysphagia. Symptoms appear to be slowly improving. Discussed with GI, Víctor Vasquez, will plan to continue to hold off on EGD as symptoms are stable/improving and most likely consistent with radiation induced esophagitis. Her esophagitis symptoms should continue to improve in the nest days to weeks as her ANC recovers. Continue treatment with Diflucan, magic mouthwash, PPI, carafate and valtrex. Encouraged intake with soft bland foods, avoid extreme temperatures along with spicy or citrus foods. (2) Pancytopenia due to antineoplastic chemotherapy Current Visit: Yes Status: Acute Assessment and plan: Improving, ANC 1.4 Since admission Tmax 100.5 on 04/21 No obvious etiology of infection-UA, blood cultures, CXR with no acute findings (3) Small cell lung cancer Current Visit: No Status: Acute Assessment and plan: She will plan to resume dose attenuated carboplatin and etoposide on an outpatient basis per treating oncologist, Dr. Schwab. Will plan to discontinue further thoracic radiotherapy given the nature of her cancer. Will arrange for follow up with Dr. Schwab within one week following discharge Please refer to Dr. Schwab's attestation for additional details. Oncology: Subj Interval history: Ms. Deng is resting comfortably, visiting with two friends at bedside. She reports her symptoms are improving, she was able to tolerate about half of her breakfast this morning whereas previously she has had very little intake if any. - Constitutional Vitals: Vital Signs Temp Pulse Resp BP Pulse Ox 04/24/18 11:26 98.9 F 118 15 124/70 93 04/24/18 11:06 16 98 04/24/18 09:27 97.8 F 114 15 135/78 90 04/24/18 08:19 92 04/24/18 07:04 97.7 F 122 18 120/78 92 04/24/18 04:13 97.7 F 111 15 131/77 94 04/24/18 03:59 16 93 04/23/18 23:52 97.7 F 124 18 154/81 93 04/23/18 21:06 17 95 04/23/18 19:26 98.7 F 120 18 135/75 87 04/23/18 15:32 115 16 127/72 90 Intake and Output 04/23/18 04/24/18 04/24/18 23:59 07:59 15:59 Intake Total 1260 / 1260 430 / 430 478 / 478 Output Total 0 / 0 1300 / 1300 0 / 0 Balance 1260 / 1260 -870 / -870 478 / 478 Intake: IV Fluids 1020 / 1020 430 / 430 238 / 238 0.9 % Sodium Chloride 1,000 ML 410 / 410 188 / 188 @ 50 mls/hr IVC .Q20H [facility] Rx#: [id number] KCl 20 mEq in 0.9% Sodium 1000 / 1000 Chloride 20 meq In 1,000 ml @ 75 mls/hr IVC .[id number] [facility] Rx#: [id number] Maxipime 2,000 MG In Water for 20 / 20 20 / 20 inj. (sterile) 20 ML @ 300 mls/ hr IVP Q12HR [facility] Rx#:[id number] Diflucan 100 MG/50 ML 100 mg In 50 / 50 50 ml @ 50 mls/hr IVPB DAILY [facility] Rx#:[id number] Oral 240 / 240 0 / 0 240 / 240 Output: Urine 0 / 0 1300 / 1300 0 / 0 Other: Meal Dinner Lunch Percent of Meal Consumed 25% 25% # Bowel Movements 0 0 Weight 60.781 kg Patient Weight 04/24/18 23:59 Weight 60.781 kg General appearance: cooperative, no acute distress, no febrile - Head Head exam: Present: atraumatic - ENT ENT exam: Present: mucous membranes moist - Respiratory Respiratory exam: Present: decreased breath sounds. Absent: respiratory distress - Cardiovascular Cardiovascular exam: Present: RRR, +S1, +S2 - GI/Abdominal GI/Abdominal exam: Present: normal bowel sounds, soft. Absent: tenderness - Extremities Exam Extremities exam: Present: normal inspection. Absent: calf tenderness - Neurological Exam Neurological exam: Present: alert, oriented X3, no focal deficits, strengths equal and symetr throughout - Psychiatric Psychiatric exam: Present: normal affect, normal mood - Skin Skin exam: Present: dry, intact, normal color, warm Oncology: Obj Data - Labs CBC & Chem 7: 04/24/18 06:06 04/24/18 06:06 Labs: Laboratory Results - last 24 hr 04/23/18 04/23/18 04/24/18 14:12 14:12 06:06 WBC 1.6 L D 2.0 L RBC 3.24 L 3.18 L Hgb 9.3 L D 9.5 L Hct 28.8 L 28.5 L MCV 88.9 89.6 MCH 28.7 29.9 MCHC 32.3 33.3 RDW 14.4 14.3 Plt Count 57 L 58 L MPV 10.8 11.6 Immature Gran % 0.6 Seg Neutrophils % 69.1 64.0 Band Neutrophils % 8.0 H Lymphocytes % 19.8 20.0 Monocytes % 10.5 8.0 Eosinophils % 0.0 Basophils % 0.0 Neutrophils # 1.1 L 1.4 L Lymphocytes # 0.3 L 0.4 L Monocytes # 0.2 0.2 Eosinophils # 0.0 Basophils # 0.0 Nucleated RBCs/100 WBC 3.1 H Toxic Granulation Present A Platelet Estimate Decreased L Marked Decrease L Immature Plt Fraction 3.7 Sodium 139 Potassium 3.9 Chloride 111 H Carbon Dioxide 21 L BUN 15 Creatinine 0.82 Est GFR ( Amer) > 60 Est GFR (Non-Af Amer) > 60 BUN/Creatinine Ratio 18 Glucose 96 Calculated Osmolality 289 Calcium 8.0 L Magnesium Total Bilirubin 0.3 AST 16 ALT 7 Alkaline Phosphatase 59 Serum Total Protein 5.2 L Albumin 2.8 L Globulin 2.4 Albumin/Globulin Ratio 1.2 04/24/18 06:06 WBC RBC Hgb Hct MCV MCH MCHC RDW Plt Count MPV Immature Gran % Seg Neutrophils % Band Neutrophils % Lymphocytes % Monocytes % Eosinophils % Basophils % Neutrophils # Lymphocytes # Monocytes # Eosinophils # Basophils # Nucleated RBCs/100 WBC Toxic Granulation Platelet Estimate Immature Plt Fraction Sodium 138 Potassium 3.9 Chloride 109 H Carbon Dioxide 19 L BUN 12 Creatinine 0.81 Est GFR ( Amer) > 60 Est GFR (Non-Af Amer) > 60 BUN/Creatinine Ratio 15 Glucose 82 Calculated Osmolality 285 Calcium 8.1 L Magnesium 1.9 Total Bilirubin AST ALT Alkaline Phosphatase Serum Total Protein Albumin Globulin Albumin/Globulin Ratio Consult Discharge Plan - Plan Referrals: Tatum,Hebert Bhavik, DO [Primary Care Provider] - <Miguel Schwab S - Last Filed: 04/25/18 07:26> Date of Encounter: 04/25/18 - Constitutional Vitals: Vital Signs Temp Pulse Resp BP Pulse Ox 04/25/18 06:31 98.3 F 105 14 128/77 94 04/25/18 03:51 18 91 04/25/18 03:39 99.6 F 116 15 130/70 91 04/24/18 23:36 99.1 F 118 16 129/70 91 04/24/18 22:41 17 94 04/24/18 18:50 98.9 F 114 15 133/76 93 04/24/18 17:34 98.1 F 115 20 135/69 94 04/24/18 15:37 16 90 04/24/18 15:21 98.2 F 112 15 120/72 93 04/24/18 13:34 98.3 F 119 17 127/79 92 04/24/18 11:26 98.9 F 118 15 124/70 93 04/24/18 11:06 16 98 04/24/18 09:27 97.8 F 114 15 135/78 90 04/24/18 08:19 92 Intake and Output 04/24/18 04/25/18 04/25/18 16:59 00:59 08:59 Intake Total 972 / 972 380 / 380 0 / 0 Output Total 0 / 0 0 / 0 400 / 400 Balance 972 / 972 380 / 380 -400 / -400 Intake: IV Fluids 732 / 732 20 / 20 0.9 % Sodium Chloride 1,000 ML 682 / 682 @ 50 mls/hr IVC .Q20H [facility] Rx#: [id number] Maxipime 2,000 MG In Water for 20 / 20 inj. (sterile) 20 ML @ 300 mls/ hr IVP Q12HR [facility] Rx#:[id number] Diflucan 100 MG/50 ML 100 mg In 50 / 50 50 ml @ 50 mls/hr IVPB DAILY [facility] Rx#:[id number] Oral 240 / 240 360 / 360 0 / 0 Output: Urine 0 / 0 0 / 0 400 / 400 Other: Meal Lunch Dinner Percent of Meal Consumed 25% 75% # Bowel Movements 0 0 Oncology: Obj Data - Labs CBC & Chem 7: 04/24/18 06:06 04/24/18 06:06 Labs: Laboratory Results - last 24 hr 04/24/18 06:06 Seg Neutrophils % 64.0 Band Neutrophils % 8.0 H Lymphocytes % 20.0 Monocytes % 8.0 Neutrophils # 1.4 L Lymphocytes # 0.4 L Monocytes # 0.2 Toxic Granulation Present A Platelet Estimate Marked Decrease L - Attending Attestation I examined this patient and my medical decision-making was reviewed with the Advanced Practice Nurse. I agree with the documented findings, disposition and treatment plan as described except to the extent set forth below. She continues to recover. She is feeling better and oral intake is starting to improve. Dysphagia is better today, and she is ambulating. She is recovering as expected from esophagitis. May discontinue cefepime. Encourage increased po intake and ambulation. Continue supportive measures.
[2018-04-24] MEDS: 0.9 % Sodium Chloride 1,000 ML IVC SCH (14:30)
--- NOTE | 2018-04-24 19:10 | Internal Med Progress Note ---
Date of Encounter: 04/24/18 Time of Encounter: 11:00 - Assessment and plan (1) Esophagitis Current Visit: Yes Status: Acute Assessment and plan: Improving Day #6 of Diflucan IV for possible candidal esophagitis Day #5 with empiric Valtrex for possible HSV infection Day #6 Cefepime (due to neutropenic fever) Carafate and PPI Continue with current plan, advance diet as tolerated. (2) Hilar mass Current Visit: No Status: Chronic Assessment and plan: Metastatic small cell carcinoma of the lung, followed as outpatient (3) Pancytopenia due to antineoplastic chemotherapy Current Visit: Yes Status: Acute Assessment and plan: Improving slowly; continue to monitor (4) Neutropenic fever Current Visit: Yes Status: Acute Assessment and plan: Day #6 Cefepime Afebrile Urine cultures and blood cultures all negative. No obvious pneumonia on chest x-ray ANC -1115 Improving (5) Chronic respiratory failure with hypoxia Current Visit: No Status: Acute Assessment and plan: Stable Not in exacerbation (6) HTN (hypertension) Current Visit: No Status: Chronic Assessment and plan: Pressure mildly elevated, likely secondary to pain. Monitor. Qualifiers: Hypertension type: essential hypertension Qualified Code(s): I10 - Essential (primary) hypertension (7) Protein calorie malnutrition Current Visit: Yes Status: Acute Assessment and plan: Nutrition therapy consult Qualifiers: Protein-calorie malnutrition severity: moderate Qualified Code(s): E44.0 - Moderate protein-calorie malnutrition - Time Spent With Patient Total time spent is greater than 50% in coordination of care (as documented) at patient's floor/unit and/or counseling patient: - Subjective Interval history: She reports that swallowing still causes discomfort with some improvement - Constitutional Vitals: Temp Pulse Resp BP Pulse Ox 98.9 F 114 15 133/76 93 04/24/18 18:50 04/24/18 18:50 04/24/18 18:50 04/24/18 18:50 04/24/18 18:50 General appearance: Present: cachectic, A&O X 3, underweight - Respiratory Respiratory exam: Present: CTAB. Absent: accessory muscle use, rales, rhonchi, wheezes - Cardiovascular Cardiovascular exam: Present: RRR, +S1, +S2. Absent: diastolic murmur, gallop, rubs, systolic murmur Internal Medicine: Result - Labs CBC & Chem 7: 04/24/18 06:06 04/24/18 06:06 Labs: Short CBC 04/24/18 Range/Units 06:06 WBC 2.0 L (4.3-11.1) K/mcL Hgb 9.5 L (11.5-15.4) g/dL Hct 28.5 L (35.3-44.9) % Plt Count 58 L (140-400) K/mcL Neutrophils # 1.4 L (1.6-8.9) K/mcL BMP 04/24/18 06:06 Sodium 138 Potassium 3.9 Chloride 109 H Carbon Dioxide 19 L BUN 12 Creatinine 0.81 Glucose 82 Calcium 8.1 L - VTE Documentation of Mechanical Device: Intermittent pneumatic compression device Consult Discharge Plan - Plan Referrals: Hebert Ryan DO [Primary Care Provider] -
[2018-04-24] MEDS: Mirtazapine 15 MG TABLET PO SCH (21:04)
[2018-04-25] MEDS: Ipratropium/Albuterol Neb 3 ML IH SCH ×4 (03:50→21:08)
[2018-04-25] MEDS: Acetaminophen 325 MG TABLET PO PRN ×2 (04:37→23:55)
[2018-04-25] MEDS: valACYclovir 500 MG TABLET PO SCH (07:44)
[2018-04-25] MEDS: Magic Mouthwash 10 ML UD Cup PO SCH ×3 (07:44→16:09)
[2018-04-25] MEDS: Pantoprazole 40 MG VIAL IVP SCH ×2 (07:44→20:26)
[2018-04-25] MEDS: GI Cocktail 40 ML EACH PO SCH ×2 (07:44→20:27)
[2018-04-25] MEDS: BuPROPion XL (24 HR) 150 MG TABLET PO SCH (07:44)
[2018-04-25] MEDS: MORPHINE SUL Oral CONC 10 MG/0.5 ML ORAL.SYG SL PRN ×4 (07:45→21:42)
[2018-04-25] MEDS: Fluconazole 100 MG/50 ML 100 MG/50 ML BAG IVPB SCH (08:40)
[2018-04-25 09:46] LABS: Hematocrit 27.7 % (35.3-44.9); Hemoglobin 9.1 g/dL (11.5-15.4); Immature Platelets 2.5 % (1.1-6.1); Mean Corpuscular HGB Conc 32.9 g/dL (31.6-35.5); Mean Corpuscular Hemoglobin 29.6 pg (28.0-33.3); Mean Corpuscular Volume 90.2 fL (83.0-100.0); Mean Platelet Volume 10.4 fL (9.4-12.4); Neutrophils # 1.8 K/mcL (1.6-8.9); Nucleated Red Blood Cells 1.7 /100 WBC (0); Red Blood Count 3.07 M/mcL (3.82-4.97); Red Cell Distribution Width 14.4 % (11.5-14.5)
[2018-04-25 10:32] LABS: BUN/Creatinine Ratio 14 (6-26); Blood Urea Nitrogen 10 mg/dL (8-23); Calcium 8.1 mg/dL (8.6-10.3); Carbon Dioxide 23 mEq/L (23-29); Chloride 107 mEq/L (98-107); Glucose 113 mg/dL (70-105); Osmolality,Calculated 286 (280-300); Potassium 3.3 mEq/L (3.5-5.1); Sodium 138 mEq/L (136-145); eGFR For African Americans > 60 (> 60); eGFR For Non-African Americans > 60 (> 60)
[2018-04-25] MEDS: 0.9 % Sodium Chloride 1,000 ML IVC SCH (11:00)
[2018-04-25 11:07] LABS: Platelet Count 55 K/mcL (140-400)
[2018-04-25 11:11] LABS: Eosinophils # 0.1 K/mcL (0.0-0.6); Lymphocytes # 0.3 K/mcL (0.6-4.6); Monocytes # 0.1 K/mcL (0.0-1.3); Platelet Estimate Decreased (Normal)
[2018-04-25 11:12] LABS: Anisocytosis 1+ (Not Present)
[2018-04-25] MEDS ORDERED: Potassium Chloride Elixir 20 MEQ/15 ML UDC PO ONE (14:27)
--- NOTE | 2018-04-25 17:35 | Internal Med Progress Note ---
Date of Encounter: 04/25/18 Time of Encounter: 11:00 - Assessment and plan (1) Esophagitis Current Visit: Yes Status: Acute Assessment and plan: She reports of no improvement in discomfort with swallowing Will continue day 7 of IV Diflucan for possible Kimi esophagitis and day 6 of Valtrex for possible HSV infection GI has been be consulted for possible EGD for evaluation (2) Hilar mass Current Visit: No Status: Chronic Assessment and plan: Metastatic small cell carcinoma of the lung, followed as outpatient (3) Pancytopenia due to antineoplastic chemotherapy Current Visit: Yes Status: Acute Assessment and plan: Improving slowly; continue to monitor (4) Neutropenic fever Current Visit: Yes Status: Acute Assessment and plan: Afebrile Urine cultures and blood cultures all negative. No obvious pneumonia on chest x-ray Continue to monitor (5) Chronic respiratory failure with hypoxia Current Visit: No Status: Acute Assessment and plan: Stable Not in exacerbation (6) HTN (hypertension) Current Visit: No Status: Chronic Assessment and plan: Pressure mildly elevated, likely secondary to pain. Monitor. Qualifiers: Hypertension type: essential hypertension Qualified Code(s): I10 - Essential (primary) hypertension (7) Protein calorie malnutrition Current Visit: Yes Status: Acute Assessment and plan: Nutrition therapy consult Qualifiers: Protein-calorie malnutrition severity: moderate Qualified Code(s): E44.0 - Moderate protein-calorie malnutrition - Time Spent With Patient Total time spent is greater than 50% in coordination of care (as documented) at patient's floor/unit and/or counseling patient: - Subjective Interval history: Patient still reports of no improvement in discomfort with swallowing this morning GI has been re-consulted for consideration for EGD due to concerns of Kimi esophagitis - Constitutional Vitals: Temp Pulse Resp BP Pulse Ox 98.2 F 122 18 115/68 91 04/25/18 14:51 04/25/18 14:51 04/25/18 15:17 04/25/18 14:51 04/25/18 15:17 General appearance: Present: cachectic, A&O X 3, no acute distress, underweight - ENT ENT exam: Present: mucous membranes moist - Expanded ENT Exam Throat exam: Present: normal inspection. Absent: post pharyngeal edema, post pharyngeal erythema, tonsillar exudate - Respiratory Respiratory exam: Present: CTAB. Absent: accessory muscle use, rales, rhonchi, wheezes - Cardiovascular Cardiovascular exam: Present: RRR, +S1, +S2. Absent: diastolic murmur, gallop, rubs, systolic murmur Internal Medicine: Result - Labs CBC & Chem 7: 04/25/18 09:22 04/25/18 09:22 Labs: Short CBC 04/25/18 Range/Units 09:22 WBC 2.3 L (4.3-11.1) K/mcL Hgb 9.1 L (11.5-15.4) g/dL Hct 27.7 L (35.3-44.9) % Plt Count 55 L (140-400) K/mcL Neutrophils # 1.8 (1.6-8.9) K/mcL BMP 04/25/18 09:22 Sodium 138 Potassium 3.3 L Chloride 107 Carbon Dioxide 23 BUN 10 Creatinine 0.73 Glucose 113 H Calcium 8.1 L - VTE Documentation of Mechanical Device: Intermittent pneumatic compression device Consult Discharge Plan - Plan Referrals: Hebert Ryan DO [Primary Care Provider] -
--- NOTE | 2018-04-25 17:52 | Oncology Inp Progress Note ---
<Eyal Schwabrey S - Last Filed: 04/25/18 21:48> Date of Encounter: 04/25/18 - Constitutional Vitals: Vital Signs Temp Pulse Resp BP Pulse Ox 04/25/18 21:08 16 90 04/25/18 19:46 99.0 F 119 17 129/78 91 04/25/18 15:17 18 91 04/25/18 14:51 98.2 F 122 14 115/68 94 04/25/18 10:09 98.3 F 126 14 113/66 94 04/25/18 09:29 16 96 04/25/18 06:31 98.3 F 105 14 128/77 94 04/25/18 03:51 18 91 04/25/18 03:39 99.6 F 116 15 130/70 91 04/24/18 23:36 99.1 F 118 16 129/70 91 04/24/18 22:41 17 94 Intake and Output 04/25/18 04/25/18 04/26/18 08:59 16:59 00:59 Intake Total 800 / 800 546 / 546 0 / 0 Output Total 400 / 400 0 / 0 0 / 0 Balance 400 / 400 546 / 546 0 / 0 Intake: IV Fluids 800 / 800 426 / 426 0.9 % Sodium Chloride 1,000 ML 800 / 800 376 / 376 @ 50 mls/hr IVC .Q20H [facility] Rx#: [id number] Diflucan 100 MG/50 ML 100 mg In 50 / 50 50 ml @ 50 mls/hr IVPB DAILY [facility] Rx#:[id number] Oral 0 / 0 120 / 120 0 / 0 Output: Urine 400 / 400 0 / 0 0 / 0 Other: Meal Breakfast Percent of Meal Consumed 10% # Bowel Movements 0 0 Oncology: Obj Data - Labs CBC & Chem 7: 04/25/18 09:22 04/25/18 09:22 Labs: Laboratory Results - last 24 hr 04/25/18 04/25/18 09:22 09:22 WBC 2.3 L RBC 3.07 L Hgb 9.1 L Hct 27.7 L MCV 90.2 MCH 29.6 MCHC 32.9 RDW 14.4 Plt Count 55 L MPV 10.4 Seg Neutrophils % 78.0 Band Neutrophils % 2.0 Lymphocytes % 14.0 Monocytes % 4.0 Eosinophils % 2.0 Neutrophils # 1.8 Lymphocytes # 0.3 L Monocytes # 0.1 Eosinophils # 0.1 Nucleated RBCs/100 WBC 1.7 H Platelet Estimate Decreased L Immature Plt Fraction 2.5 Anisocytosis 1+ A Sodium 138 Potassium 3.3 L Chloride 107 Carbon Dioxide 23 BUN 10 Creatinine 0.73 Est GFR ( Amer) > 60 Est GFR (Non-Af Amer) > 60 BUN/Creatinine Ratio 14 Glucose 113 H Calculated Osmolality 286 Calcium 8.1 L Consult Discharge Plan - Plan Referrals: Hebert Ryan DO [Primary Care Provider] - - Attending Attestation I examined this patient and my medical decision-making was reviewed with the Advanced Practice Nurse. I agree with the documented findings, disposition and treatment plan as described except to the extent set forth below. Eating a bit better today. Still with odynophagia but improving as expected. Continue with supportive measures with morphine/carafate/MMW/valtrex and fluconazole. Continue with oral intake. I think d/c next 24-48 hours. 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 Symptoms continue to improve today. Her esophagitis symptoms should continue to improve in the nest days to weeks now that her ANC has completely recovered. Continue supportive treatment with Diflucan, magic mouthwash, PPI, carafate and valtrex. Encouraged intake with soft bland foods, avoid extreme temperatures along with spicy or citrus foods. Likely expect discharge within the next 24-48 hours. Encouraged ambulation and participation with PT/OT. Patient lives at home with her son. (2) Pancytopenia due to antineoplastic chemotherapy Current Visit: Yes Status: Acute Assessment and plan: Resolved. Afebrile since weekend. No obvious etiology of infection-UA, blood cultures, CXR with no acute findings Discontinued cefepime now that ANC has recovered (3) Small cell lung cancer Current Visit: No Status: Acute Assessment and plan: She will plan to resume dose attenuated carboplatin and etoposide on an outpatient basis per treating oncologist, Dr. Schwab. Will plan to discontinue further thoracic radiotherapy given the nature of her cancer. Will arrange for follow up with Dr. Schwab within one week following discharge Please refer to Dr. Schwab's attestation for additional details. Oncology: Subj Interval history: Ms. Deng is resting in bed. She denies pain and is resting comfortably. She is tolerating food/liquids ok, small amounts at a time. Continues to experience odynophagia although reports pain is slowing improving. Encouraged ambulation with assistance and to increase activity as tolerated. - Constitutional Vitals: Vital Signs Temp Pulse Resp BP Pulse Ox 04/25/18 15:17 18 91 04/25/18 14:51 98.2 F 122 14 115/68 94 04/25/18 10:09 98.3 F 126 14 113/66 94 04/25/18 09:29 16 96 04/25/18 06:31 98.3 F 105 14 128/77 94 04/25/18 03:51 18 91 04/25/18 03:39 99.6 F 116 15 130/70 91 04/24/18 23:36 99.1 F 118 16 129/70 91 04/24/18 22:41 17 94 04/24/18 18:50 98.9 F 114 15 133/76 93 Intake and Output 04/25/18 04/25/18 04/25/18 07:59 15:59 23:59 Intake Total 800 / 800 278 / 278 268 / 268 Output Total 400 / 400 0 / 0 Balance 400 / 400 278 / 278 268 / 268 Intake: IV Fluids 800 / 800 158 / 158 268 / 268 0.9 % Sodium Chloride 1,000 ML 800 / 800 108 / 108 268 / 268 @ 50 mls/hr IVC .Q20H [facility] Rx#: [id number] Diflucan 100 MG/50 ML 100 mg In 50 / 50 50 ml @ 50 mls/hr IVPB DAILY [facility] Rx#:[id number] Oral 0 / 0 120 / 120 Output: Urine 400 / 400 0 / 0 Other: Meal Breakfast Percent of Meal Consumed 10% # Bowel Movements 0 0 General appearance: cooperative, no acute distress, no febrile - Head Head exam: Present: atraumatic - ENT ENT exam: Present: mucous membranes moist - Respiratory Respiratory exam: Present: CTAB. Absent: respiratory distress - Cardiovascular Cardiovascular exam: Present: RRR, +S1, +S2 - GI/Abdominal GI/Abdominal exam: Present: normal bowel sounds, soft. Absent: guarding, rebound, tenderness - Extremities Exam Extremities exam: Present: normal inspection. Absent: calf tenderness - Neurological Exam Neurological exam: Present: alert, oriented X3, no focal deficits, strengths equal and symetr throughout - Psychiatric Psychiatric exam: Present: normal affect, normal mood - Skin Skin exam: Present: dry, intact, normal color, warm Oncology: Obj Data - Labs CBC & Chem 7: 04/25/18 09:22 04/25/18 09:22 Labs: Laboratory Results - last 24 hr 04/25/18 04/25/18 09:22 09:22 WBC 2.3 L RBC 3.07 L Hgb 9.1 L Hct 27.7 L MCV 90.2 MCH 29.6 MCHC 32.9 RDW 14.4 Plt Count 55 L MPV 10.4 Seg Neutrophils % 78.0 Band Neutrophils % 2.0 Lymphocytes % 14.0 Monocytes % 4.0 Eosinophils % 2.0 Neutrophils # 1.8 Lymphocytes # 0.3 L Monocytes # 0.1 Eosinophils # 0.1 Nucleated RBCs/100 WBC 1.7 H Platelet Estimate Decreased L Immature Plt Fraction 2.5 Anisocytosis 1+ A Sodium 138 Potassium 3.3 L Chloride 107 Carbon Dioxide 23 BUN 10 Creatinine 0.73 Est GFR ( Amer) > 60 Est GFR (Non-Af Amer) > 60 BUN/Creatinine Ratio 14 Glucose 113 H Calculated Osmolality 286 Calcium 8.1 L
[2018-04-25] MEDS: Mirtazapine 15 MG TABLET PO SCH (20:27)
[2018-04-25] MEDS: *HR* LORazepam 0.5 MG TABLET PO PRN (23:56)
[2018-04-26] MEDS: Ipratropium/Albuterol Neb 3 ML IH SCH ×4 (04:13→21:50)
[2018-04-26] MEDS: 0.9 % Sodium Chloride 1,000 ML IVC SCH (04:49)
[2018-04-26] MEDS: MORPHINE SUL Oral CONC 10 MG/0.5 ML ORAL.SYG SL PRN ×3 (08:34→22:17)
[2018-04-26] MEDS: Magic Mouthwash 10 ML UD Cup PO SCH ×3 (08:38→17:22)
[2018-04-26] MEDS: GI Cocktail 40 ML EACH PO SCH ×2 (08:38→20:07)
[2018-04-26] MEDS: valACYclovir 500 MG TABLET PO SCH (08:39)
[2018-04-26] MEDS: BuPROPion XL (24 HR) 150 MG TABLET PO SCH (08:39)
[2018-04-26] MEDS: Fluconazole 100 MG/50 ML 100 MG/50 ML BAG IVPB SCH (10:10)
[2018-04-26] MEDS: Pantoprazole 40 MG VIAL IVP SCH ×2 (10:10→20:07)
[2018-04-26 10:55] LABS: Hematocrit 30.8 % (35.3-44.9); Hemoglobin 9.9 g/dL (11.5-15.4); Immature Platelets 3.1 % (1.1-6.1); Lymphocytes # 0.2 K/mcL (0.6-4.6); Mean Corpuscular HGB Conc 32.1 g/dL (31.6-35.5); Mean Corpuscular Hemoglobin 28.9 pg (28.0-33.3); Mean Corpuscular Volume 90.1 fL (83.0-100.0); Mean Platelet Volume 11.2 fL (9.4-12.4); Platelet Count 53 K/mcL (140-400); Red Blood Count 3.42 M/mcL (3.82-4.97); Red Cell Distribution Width 14.4 % (11.5-14.5)
[2018-04-26 10:59] LABS: BUN/Creatinine Ratio 14 (6-26); Blood Urea Nitrogen 11 mg/dL (8-23); Calcium 8.3 mg/dL (8.6-10.3); Carbon Dioxide 24 mEq/L (23-29); Chloride 106 mEq/L (98-107); Glucose 111 mg/dL (70-105); Osmolality,Calculated 286 (280-300); Potassium 3.6 mEq/L (3.5-5.1); Sodium 138 mEq/L (136-145); eGFR For African Americans > 60 (> 60); eGFR For Non-African Americans > 60 (> 60)
[2018-04-26 11:16] LABS: Neutrophils # 2.2 K/mcL (1.6-8.9)
[2018-04-26 11:18] LABS: Platelet Estimate Marked Decrease (Normal)
[2018-04-26] MEDS: *HR* LORazepam 0.5 MG TABLET PO PRN (11:44)
[2018-04-26] MEDS: Acetaminophen 325 MG TABLET PO PRN ×2 (11:44→20:07)
[2018-04-26] MEDS ORDERED: *HR* Propofol 200 MG/20 ML VIAL IVP ONE (12:44)
[2018-04-26] MEDS ORDERED: Lidocaine -MPF 2% 2 ML VIAL ONE (12:44)
[2018-04-26] MEDS ORDERED: *HR* Metoprolol 5 MG/5 ML VIAL IVP ONE (12:47)
--- NOTE | 2018-04-26 13:18 | Oncology Inp Progress Note ---
Date of Encounter: 04/26/18 Time of Encounter: 11:00 (1) Esophagitis Current Visit: Yes Status: Acute Assessment and plan: Symptoms consistent with radiation induced esophagitis. Symptoms are stable and continue to slowly improve. Denies worsening of symptoms today. Her esophagitis symptoms should continue to improve in the next days to weeks now that her ANC has completely recovered. Continue supportive treatment with Diflucan, magic mouthwash, PPI, carafate and valtrex. Encouraged intake with soft bland foods, avoid extreme temperatures along with spicy or citrus foods. Likely expect discharge within the next 24-48 hours. Encouraged ambulation and participation/evaluation with PT/OT. Patient lives at home with her son. (2) Pancytopenia due to antineoplastic chemotherapy Current Visit: Yes Status: Acute Assessment and plan: Resolved. Afebrile since weekend. No obvious etiology of infection-Urine culture, blood cultures, CXR with no acute findings Discontinued cefepime now that ANC has recovered (3) Small cell lung cancer Current Visit: No Status: Acute Assessment and plan: She will plan to resume dose attenuated carboplatin and etoposide on an outpatient basis per treating oncologist, Dr. Schwab. Will plan to discontinue further thoracic radiotherapy given the nature of her cancer. Will arrange for follow up with Dr. Schwab within one week following discharge Oncology: Subj Interval history: Ms. Deng is resting in bed. Her granddaughter is at bedside. Symptoms are stable, slowly improving, denies worsening odynophagia/dyshagia. Eating small amounts at a time. - Constitutional Vitals: Vital Signs Temp Pulse Resp BP Pulse Ox 04/26/18 13:09 99.5 F 120 20 104/68 04/26/18 11:53 100 04/26/18 11:00 99.2 F 130 20 149/90 100 04/26/18 10:25 20 100 04/26/18 09:07 107 20 105/72 100 04/26/18 06:51 98.2 F 109 14 116/68 95 04/26/18 04:13 16 90 04/26/18 04:08 98.1 F 111 17 107/67 95 04/25/18 23:53 99.0 F 123 17 151/81 91 04/25/18 21:08 16 90 04/25/18 19:46 99.0 F 119 17 129/78 91 04/25/18 15:17 18 91 04/25/18 14:51 98.2 F 122 14 115/68 94 Intake and Output 04/25/18 04/26/18 04/26/18 23:59 07:59 15:59 Intake Total 268 / 268 732 / 732 50 / 50 Output Total 300 / 300 0 / 0 300 / 300 Balance -32 / -32 732 / 732 -250 / -250 Intake: IV Fluids 268 / 268 732 / 732 50 / 50 0.9 % Sodium Chloride 1,000 ML 268 / 268 732 / 732 @ 50 mls/hr IVC .Q20H [facility] Rx#: [id number] Diflucan 100 MG/50 ML 100 mg In 50 / 50 50 ml @ 50 mls/hr IVPB DAILY [facility] Rx#:[id number] Oral 0 / 0 0 / 0 Output: Urine 300 / 300 0 / 0 300 / 300 Other: # Bowel Movements 0 0 Weight 60.5 kg Patient Weight 04/26/18 23:59 Weight 60.5 kg General appearance: cooperative, no acute distress, no febrile Exam: chronically ill appearing - Head Head exam: Present: atraumatic - ENT ENT exam: Present: mucous membranes moist - Respiratory Respiratory exam: Present: CTAB. Absent: respiratory distress - Cardiovascular Cardiovascular exam: Present: RRR, +S1, +S2 - Extremities Exam Extremities exam: Present: normal inspection. Absent: calf tenderness - Neurological Exam Neurological exam: Present: alert, oriented X3, no focal deficits, strengths equal and symetr throughout - Psychiatric Psychiatric exam: Present: normal affect, normal mood - Skin Skin exam: Present: dry, intact, normal color, warm Oncology: Obj Data - Labs CBC & Chem 7: 04/26/18 10:06 04/26/18 10:06 Labs: Laboratory Results - last 24 hr 04/26/18 04/26/18 10:06 10:06 WBC 2.4 L RBC 3.42 L Hgb 9.9 L Hct 30.8 L MCV 90.1 MCH 28.9 MCHC 32.1 RDW 14.4 Plt Count 53 L MPV 11.2 Seg Neutrophils % 82.0 Band Neutrophils % 8.0 H Lymphocytes % 10.0 Neutrophils # 2.2 Lymphocytes # 0.2 L Platelet Estimate Marked Decrease L Immature Plt Fraction 3.1 Sodium 138 Potassium 3.6 Chloride 106 Carbon Dioxide 24 BUN 11 Creatinine 0.76 Est GFR ( Amer) > 60 Est GFR (Non-Af Amer) > 60 BUN/Creatinine Ratio 14 Glucose 111 H Calculated Osmolality 286 Calcium 8.3 L Consult Discharge Plan - Plan Referrals: Hebert Ryan DO [Primary Care Provider] -
--- NOTE | 2018-04-26 13:19 | Anesthesia Evaluation PreOp ---
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) Other Medical History: Renal (CRD Stage III), Thyroid, GERD, Other (Pancytopenia ) Anesthesia History: Past Anesthesia (cardiac stent) : No Alcohol Use: none Drug use: none Medications and Allergies Aspirin [Adult Aspirin Regimen] 81 mg PO DAILY 02/25/18 [History] Levothyroxine [Synthroid] 50 mcg PO DAILY 02/25/18 [History] Nitroglycerin [Nitrostat] 0.4 mg SL Q5MIN PRN 02/25/18 [History] Pravastatin Sodium [Pravachol] 20 mg PO HS 02/25/18 [History] Sertraline [Zoloft] 150 mg PO DAILY 02/25/18 [History] buPROPion HCl [Bupropion HCl ER] 300 mg PO DAILY 02/25/18 [History] Mirtazapine [Remeron] 30 mg PO HS 02/26/18 [History] Promethazine [Phenergan] 25 mg PO Q6HR PRN #30 tablet 03/09/18 [Rx] Albuterol Sulfate [Albuterol Inhaler] 1 puff IH Q6HR PRN #1 hfa.aer.ad 03/27/18 [Rx] Oxycodone HCl [Oxycontin] 10 - 20 mg PO Q4H 30 Days #240 tab.er.12h 04/17/18 [Rx ] Albuterol Sulfate [Ventolin Hfa] 2 puff IH Q4-6H PRN 04/19/18 [History] Budesonide/Formoterol 160/4.5 [Symbicort 160/4.5] 2 puff IH BID 04/19/18 [ History] Metoprolol Tartrate [Metoprolol Tartrate] 50 mg PO DAILY PRN 04/19/18 [History] amLODIPine [Norvasc] 5 mg PO DAILY PRN 04/19/18 [History] 3 Allergy/AdvReac Type Severity Reaction Status Date / Time No Known Allergies Allergy Verified 04/09/18 08:04 - Meds/Allergy Pre-op Review Medications Reviewed: Yes Allergies Reviewed: Yes Beta Blockers on Current Med List: No Anesthesia Results - Labs 04/26/18 10:06 04/26/18 10:06 Echocardiogram Name: Naya Deng Date of Study: 03/19/2018 echocardiogram Impressions: LVEF 60-65%. Mild left ventricular diastolic dysfunction. Normal right ventricular structure and function. Mild mitral regurgitation. No pulmonary hypertension. Left Ventricular Wall Motion: Rest Echo Findings All wall segments showed normal motion. - Imaging EKG: report reviewed (ST) Anesthesia Exam Vital Signs/O2 Sat, Most Current Temp Pulse Resp BP Pulse Ox 99.5 F 120 20 104/68 100 04/26/18 13:04/26/18 13:04/26/18 13:04/26/18 13:04/26/18 11:53 NPO (# of Hours): > 8 hrs Pain Scale: 0 Pain Scale Used: Numeric (1 - 10) - HEENT Pupil (Motor): Pupils equal, EOMI Mallampati: II Teeth: Edentulous Denture Type: Upper: Complete, Lower: Complete Oral Opening: Greater than 3 - ELECTRONIC MASKING SYSTEM OPERATOR LOC: Oriented ELECTRONIC MASKING SYSTEM OPERATOR Motor: Normal RUE, Normal LUE, Normal RLE, Normal LLE, Normal Face ELECTRONIC MASKING SYSTEM OPERATOR Sensory: Normal: RUE, LUE, RLE, LLE, Face - Cardiac Rhythm: Regular Murmur: None JVD: No Carotid Bruit: No - Pulmonary Breath Sounds: bilateral Clear Respiratory Effort: Symmetrical Anesthesia Assess/Plan ASA Score: 3 Modified [place] Scale for Level of Consciousness: Cooperative, oriented, and tranquil Anesthetic Plan: MAC Autologous Blood: Yes Monitoring Plan: Standard Monitors Recovery Plan: Other
--- NOTE | 2018-04-26 19:28 | Internal Med Progress Note ---
Date of Encounter: 04/26/18 Time of Encounter: 11:00 - Assessment and plan (1) Esophagitis Current Visit: Yes Status: Acute Assessment and plan: She reports of no improvement in discomfort with swallowing GI consulted and EGD was done which show moderately severe radiation esophagitis. Medications for PPI twice daily, liquid Carafate 3 times daily and lidocaine 2% swish and swallow 4 times daily as needed Will plan for discharge on 04/27/18 (2) Hilar mass Current Visit: No Status: Chronic Assessment and plan: Metastatic small cell carcinoma of the lung, followed as outpatient (3) Pancytopenia due to antineoplastic chemotherapy Current Visit: Yes Status: Acute Assessment and plan: Improving slowly; continue to monitor (4) Neutropenic fever Current Visit: Yes Status: Acute Assessment and plan: Afebrile Urine cultures and blood cultures all negative. No obvious pneumonia on chest x-ray Continue to monitor (5) Chronic respiratory failure with hypoxia Current Visit: No Status: Acute Assessment and plan: Stable Not in exacerbation (6) HTN (hypertension) Current Visit: No Status: Chronic Assessment and plan: Pressure mildly elevated, likely secondary to pain. Monitor. Qualifiers: Hypertension type: essential hypertension Qualified Code(s): I10 - Essential (primary) hypertension (7) Protein calorie malnutrition Current Visit: Yes Status: Acute Assessment and plan: Nutrition therapy consult Qualifiers: Protein-calorie malnutrition severity: moderate Qualified Code(s): E44.0 - Moderate protein-calorie malnutrition - Time Spent With Patient Total time spent is greater than 50% in coordination of care (as documented) at patient's floor/unit and/or counseling patient: - Subjective Interval history: Patient still reports of no improvement in discomfort with swallowing this morning GI has been re-consulted for EGD due to concerns of Kimi esophagitis - Constitutional Vitals: Temp Pulse Resp BP Pulse Ox 98.7 F 101 18 128/73 91 04/26/18 15:00 04/26/18 15:00 04/26/18 15:59 04/26/18 15:00 04/26/18 15:59 General appearance: Present: cachectic, A&O X 3, no acute distress, underweight - Respiratory Respiratory exam: Present: CTAB. Absent: accessory muscle use, rales, rhonchi, wheezes - Cardiovascular Cardiovascular exam: Present: RRR, +S1, +S2. Absent: diastolic murmur, gallop, rubs, systolic murmur Internal Medicine: Result - Labs CBC & Chem 7: 04/26/18 10:06 04/26/18 10:06 Labs: Short CBC 04/26/18 Range/Units 10:06 WBC 2.4 L (4.3-11.1) K/mcL Hgb 9.9 L (11.5-15.4) g/dL Hct 30.8 L (35.3-44.9) % Plt Count 53 L (140-400) K/mcL Neutrophils # 2.2 (1.6-8.9) K/mcL BMP 04/26/18 10:06 Sodium 138 Potassium 3.6 Chloride 106 Carbon Dioxide 24 BUN 11 Creatinine 0.76 Glucose 111 H Calcium 8.3 L - VTE Documentation of Mechanical Device: Graduated compression elastic hosiery Consult Discharge Plan - Plan Referrals: Hebert Ryan DO [Primary Care Provider] -
[2018-04-26] MEDS: Mirtazapine 15 MG TABLET PO SCH (20:07)
[2018-04-27] MEDS: 0.9 % Sodium Chloride 1,000 ML IVC SCH (03:03)
[2018-04-27] MEDS: Ipratropium/Albuterol Neb 3 ML IH SCH ×3 (04:12→15:19)
[2018-04-27] MEDS: Magic Mouthwash 10 ML UD Cup PO SCH ×2 (08:11→11:39)
[2018-04-27] MEDS: GI Cocktail 40 ML EACH PO SCH (08:11)
[2018-04-27] MEDS: BuPROPion XL (24 HR) 150 MG TABLET PO SCH (08:11)
[2018-04-27] MEDS: valACYclovir 500 MG TABLET PO SCH (08:11)
[2018-04-27] MEDS: Pantoprazole 40 MG VIAL IVP SCH (08:11)
[2018-04-27] MEDS: Fluconazole 100 MG/50 ML 100 MG/50 ML BAG IVPB SCH (08:12)
[2018-04-27] MEDS: Acetaminophen 325 MG TABLET PO PRN (08:17)
[2018-04-27 10:38] VITALS: BP 103/65
--- NOTE | 2018-04-27 12:06 | Discharge Summary ---
- NOTES TO OUTPATIENT PROVIDER Notes to Outpatient Provider: Patient to follow-up with hematology oncology as outpatient Orders not resulted at time of discharge: Pending orders 04/26/18 14:00 Surgical Pathology [PTH] Routine Date of Encounter: 04/27/18 Time of Encounter: 11:00 - Discharge Diagnosis (1) Esophagitis Priority: Primary Status: Acute (2) Hilar mass Priority: Primary Status: Chronic (3) Pancytopenia due to antineoplastic chemotherapy Priority: Primary Status: Acute (4) Neutropenic fever Priority: Primary Status: Acute (5) Chronic respiratory failure with hypoxia Priority: Primary Status: Acute (6) HTN (hypertension) Priority: Secondary Status: Chronic Qualifiers: Hypertension type: essential hypertension Qualified Code(s): I10 - Essential (primary) hypertension (7) Protein calorie malnutrition Priority: Secondary Status: Acute Qualifiers: Protein-calorie malnutrition severity: moderate Qualified Code(s): E44.0 - Moderate protein-calorie malnutrition Hospital course: Ms. Deng is a 72 year old female - Time Spent with Patient Total time spent providing and/or coordinating discharge services: - Discharge Medications Prescriptions: Metoprolol [Lopressor] 12.5 mg PO BID #60 tablet Omeprazole [PriLOSEC] 20 mg PO BIDAC #60 cap Sucralfate [Carafate] 1 gm PO QIDAC #1 udc Home Medications: Aspirin [Adult Aspirin Regimen] 81 mg PO DAILY 02/25/18 [History] Levothyroxine [Synthroid] 50 mcg PO DAILY 02/25/18 [History] Nitroglycerin [Nitrostat] 0.4 mg SL Q5MIN PRN 02/25/18 [History] Pravastatin Sodium [Pravachol] 20 mg PO HS 02/25/18 [History] Sertraline [Zoloft] 150 mg PO DAILY 02/25/18 [History] buPROPion HCl [Bupropion HCl ER] 300 mg PO DAILY 02/25/18 [History] Mirtazapine [Remeron] 30 mg PO HS 02/26/18 [History] Promethazine [Phenergan] 25 mg PO Q6HR PRN #30 tablet 03/09/18 [Rx] Albuterol Sulfate [Albuterol Inhaler] 1 puff IH Q6HR PRN #1 hfa.aer.ad 03/27/18 [Rx] Oxycodone HCl [Oxycontin] 10 - 20 mg PO Q4H 30 Days #240 tab.er.12h 04/17/18 [Rx ] Albuterol Sulfate [Ventolin Hfa] 2 puff IH Q4-6H PRN 04/19/18 [History] Budesonide/Formoterol 160/4.5 [Symbicort 160/4.5] 2 puff IH BID 04/19/18 [ History] amLODIPine [Norvasc] 5 mg PO DAILY PRN 04/19/18 [History] MORPHINE SUL Oral CONC [Roxanol Oral Conc] 5 - 10 mg PO Q4H PRN 20 Days #120 oral.syg 04/27/18 [Rx] Metoprolol [Lopressor] 12.5 mg PO BID #60 tablet 04/27/18 [Rx] Omeprazole [PriLOSEC] 20 mg PO BIDAC #60 cap 04/27/18 [Rx] Sucralfate [Carafate] 1 gm PO QIDAC #1 udc 04/27/18 [Rx] Allergies/Adverse Reactions: 3 Allergy/AdvReac Type Severity Reaction Status Date / Time No Known Allergies Allergy Verified 04/09/18 08:04 Date of admission: 04/19/18 15:58 Primary care physician: Hebert Ryan Consults: 04/19/18 16:58 Consult to Nutrition [CONS] Routine Comment: Consulting Provider: NUTRITION Reason for Dietary Consult: PO Supplementation Other:: Weight loss 04/22/18 11:43 Consult to Physical Therapy [CONS] Routine Comment: Evaluate, develop and implement POC Reason for Consult: weakness Does patient have active BEDREST order?: No Is patient medically & hemodynamically stable?: Yes Patient assessed for mobility or mobilized this visit?: No - Constitutional Vitals: Temp Pulse Resp BP Pulse Ox 98.5 F 104 20 103/65 96 04/27/18 10:30 04/27/18 10:30 04/27/18 10:37 04/27/18 10:30 04/27/18 10:37 General appearance: Present: cachectic, A&O X 3, no acute distress, underweight - Respiratory Respiratory exam: Present: CTAB. Absent: accessory muscle use, rales, rhonchi, wheezes - Cardiovascular Cardiovascular exam: Present: RRR, +S1, +S2. Absent: diastolic murmur, gallop, rubs, systolic murmur - Patient Status Disposition: Home Health Service Condition: Fair - Discharge Instructions Follow Up With: Hebert Ryan DO [Primary Care Provider] - (Patient has to call the office) - VTE Documentation of Mechanical Device: Intermittent pneumatic compression device
--- NOTE | 2018-04-27 12:07 | Physician Discharge Referral ---
Home Health/Hosp Referral Info Transfer to: Home Health - Diagnosis (1) Esophagitis Status: Acute (2) Hilar mass Status: Chronic (3) Pancytopenia due to antineoplastic chemotherapy Status: Acute (4) Neutropenic fever Status: Acute (5) Chronic respiratory failure with hypoxia Status: Acute (6) HTN (hypertension) Status: Chronic (7) Protein calorie malnutrition Status: Acute - Respiratory Orders Smoking Cessation: Smoking cessation has been advised. For more information, call the [place] Tobacco Quit Line at 9-017-YBWW-NOW. - Services Needed Following services are medically necessary services: Physical Therapy, Occupational Therapy - Transfer Medications Prescriptions: Metoprolol [Lopressor] 12.5 mg PO BID #60 tablet Omeprazole [PriLOSEC] 20 mg PO BIDAC #60 cap Sucralfate [Carafate] 1 gm PO QIDAC #1 udc Home Medications: Aspirin [Adult Aspirin Regimen] 81 mg PO DAILY 02/25/18 [History] Levothyroxine [Synthroid] 50 mcg PO DAILY 02/25/18 [History] Nitroglycerin [Nitrostat] 0.4 mg SL Q5MIN PRN 02/25/18 [History] Pravastatin Sodium [Pravachol] 20 mg PO HS 02/25/18 [History] Sertraline [Zoloft] 150 mg PO DAILY 02/25/18 [History] buPROPion HCl [Bupropion HCl ER] 300 mg PO DAILY 02/25/18 [History] Mirtazapine [Remeron] 30 mg PO HS 02/26/18 [History] Promethazine [Phenergan] 25 mg PO Q6HR PRN #30 tablet 03/09/18 [Rx] Albuterol Sulfate [Albuterol Inhaler] 1 puff IH Q6HR PRN #1 hfa.aer.ad 03/27/18 [Rx] Oxycodone HCl [Oxycontin] 10 - 20 mg PO Q4H 30 Days #240 tab.er.12h 04/17/18 [Rx ] Albuterol Sulfate [Ventolin Hfa] 2 puff IH Q4-6H PRN 04/19/18 [History] Budesonide/Formoterol 160/4.5 [Symbicort 160/4.5] 2 puff IH BID 04/19/18 [ History] amLODIPine [Norvasc] 5 mg PO DAILY PRN 04/19/18 [History] Metoprolol [Lopressor] 12.5 mg PO BID #60 tablet 04/27/18 [Rx] Omeprazole [PriLOSEC] 20 mg PO BIDAC #60 cap 04/27/18 [Rx] Sucralfate [Carafate] 1 gm PO QIDAC #1 udc 04/27/18 [Rx] Allergies/Adverse Reactions: 3 Allergy/AdvReac Type Severity Reaction Status Date / Time No Known Allergies Allergy Verified 04/09/18 08:04 Certification: Further, I certify that my clinical findings support that this patient is homebound (i.e. absences from home require considerable and taxing effort and are for medical reasons or confucianism services or infrequently or short duration when for other reasons) because: Homebound Reason: Patient requires assistance of a person or device to safely leave home Attestation: My signature below is to certify that this patient is under my care and that I, or nurse practitioner, or a physician's endodontic assistant working with me, has a face-to -face encounter with this patient.
== END 2018-04-27 15:25 | disposition home health service (06) | DRG 391 ==
LOC: EMEROO 12:55 → 3ANU 15:58 → SUATTDRO 15:58 → 3ANU 16:24
PROVIDERS: ADMIT Family Medicine; ATTEND Hospitalist
PROC: ENDOEBX (2018-04-26 14:15)

== ENCOUNTER 2018-04-30 15:46 | Inpatient (IN) ==
--- NOTE | 2018-04-30 19:47 | Internal Med History&Physical ---
Date of Encounter: 04/30/18 Time of Encounter: 19:47 Internal Medicine - H&P: HPI Admitted From: Emergency Dept Plans for Post Hospital Care: Home History of present illness: Ms. Deng is a 72 year old female with past medical history of metastatic small cell lung cancer, COPD, CHF, esophagitis (radiation induced), pancytopenia due to anti-neoplastic. Grand children, daughter, and son at bedside. Pt was seen at [facility] due to chest pain and difficulty breathing. Pt has known hx of metastatic small cell lung CA. She typically follows out pt with Dr. Schwab. Pt's oxygen saturation at [facility] was in the 60's. She was laced on 100% non- rebreather temporarily and then switched to BiPAP. According to ED physician BiPAP helped significantly with her symptoms. EKG showed ST, old ST depression and non-specific ST T wave abnormalities. Chest x ray showed difffuse increased makings. WBC 3.6, temp 99.6, Troponin elevated. Family reports that patient's appetite has been poor due to pain with swallowing. They also report that she has also been coughing up blood. CODE STATUS: DNRCC At [facility] work up Na 141, K 3.5, BuN 24, Cr 1.00. D dimer 2171. NT-pro-BNP 92196. Troponin 11.79, INR 5.62. ABG PH 7.430, pCO2 35.0, pO2 67, HCO3 23.2, BE -0.7, Oxyen saturaion 94% on 55% FIO2 via mask. CTA chest showed IMPRESSION Several small acute appearing pulmonary emboli B/L. Moderate marked infiltrate edema vs edema. B/L pleural effusion Moderate arterial calcification. Past Med Surg Social Fam HX - Past Medical History Medical history: GERD, hyperlipidemia, hypertension, myocardial infarction, renal disease, thyroid disease Psychiatric history: no psych history - Past Surgical History Surgical History: angioplasty/stent - Social History Smoking Status: Former smoker Smokeless Tobacco Status: No Alcohol use: none Drug use: none - Family History Mother Family Member Ethnicity: Non- Living Status: Hx Family Cardiac Disorders: Yes (HTN) Hx Family Neurologic Disorders: Yes (CVA) Father Family Member Ethnicity: Non- Living Status: Hx Family Cardiac Disorders: Yes (Aneurysm) Hx Family Cancer: Yes (Colon) Brother Family Member Ethnicity: Non- Living Status: Hx Family Cancer: Yes Sister Family Member Ethnicity: Non- Living Status: Hx Family Cancer: Yes Internal Medicine - H&P: Meds Aspirin [Adult Aspirin Regimen] 81 mg PO DAILY 02/25/18 [History] Levothyroxine [Synthroid] 50 mcg PO DAILY 02/25/18 [History] Nitroglycerin [Nitrostat] 0.4 mg SL Q5MIN PRN 02/25/18 [History] Pravastatin Sodium [Pravachol] 20 mg PO HS 02/25/18 [History] Sertraline [Zoloft] 150 mg PO DAILY 02/25/18 [History] buPROPion HCl [Bupropion HCl ER] 300 mg PO DAILY 02/25/18 [History] Mirtazapine [Remeron] 30 mg PO HS 02/26/18 [History] Oxycodone HCl [Oxycontin] 10 - 20 mg PO Q4H 30 Days #240 tab.er.12h 04/17/18 [Rx ] Albuterol Sulfate [Ventolin Hfa] 2 puff IH Q4-6H PRN 04/19/18 [History] Budesonide/Formoterol 160/4.5 [Symbicort 160/4.5] 2 puff IH BID 04/19/18 [ History] amLODIPine [Norvasc] 5 mg PO DAILY PRN 04/19/18 [History] MORPHINE SUL Oral CONC [Roxanol Oral Conc] 5 - 10 mg PO Q4H PRN 20 Days #120 oral.syg 04/27/18 [Rx] Metoprolol [Lopressor] 12.5 mg PO BID #60 tablet 04/27/18 [Rx] Omeprazole [PriLOSEC] 20 mg PO BIDAC #60 cap 04/27/18 [Rx] Sucralfate [Carafate] 1 gm PO QIDAC #1 udc 04/27/18 [Rx] 3 Allergy/AdvReac Type Severity Reaction Status Date / Time No Known Allergies Allergy Verified 04/09/18 08:04 All Systems PM: A 10-system review of systems was performed and is negative for pertinent findings except as documented above in the HPI. - Constitutional Vitals: Temp Pulse Resp BP Pulse Ox 98.5 F 91 24 119/74 91 04/30/18 17:54 04/30/18 18:34 04/30/18 17:54 04/30/18 17:54 04/30/18 17:54 General appearance: Present: A&O X 3, loss of weight Exam: Hard of hearing moderate distress - Head Head exam: Present: atraumatic, normocephalic - Eye Eye exam: Present: PERRL, conjuntiva pink, sclera anicteric Pupils: Present: PERRL - Neck Neck exam general surgery: Present: supple, trachea midline. Absent: lymphadenopathy - Respiratory Respiratory exam: Present: respiratory distress, rhonchi. Absent: accessory muscle use, CTAB, rales, wheezes Additional comments: bilateral Rhonchi - Cardiovascular Cardiovascular exam: Present: RRR, +S1, +S2. Absent: diastolic murmur, gallop, rubs, systolic murmur - GI/Abdominal GI/Abdominal exam: Present: normal bowel sounds, soft, no peritoneal signs. Absent: distended, tenderness - Extremities Exam Extremities exam: Present: warm, radial pulses palpable and symmetrical. Absent : calf tenderness, cyanotic, pedal edema - Neurological Exam Neurological exam: Present: CN II-XII intact, oriented X3, no focal deficits. Absent: pronater drift, facial droop, speech deficit - Skin Skin exam: Present: dry, intact - Assessment and plan (1) Acute and chronic respiratory failure Current Visit: Yes Status: Acute Assessment and plan: Will continue with oxygen supplement for now. Will give trial of Lasix and antibiotic. Will consult hospice per family request Qualifiers: Qualified Code(s): J96.20 - Acute and chronic respiratory failure, unspecified whether with hypoxia or hypercapnia (2) NSTEMI (non-ST elevated myocardial infarction) Current Visit: Yes Status: Acute Assessment and plan: Will resume home ASA. Family does not want any aggressive measures at this time as she is DNRCC. (3) Acute pulmonary embolism Current Visit: Yes Status: Acute Assessment and plan: Pt is not a candidate for anticoagulation due to multiple reasons, she is pancytopenic and reports hemoptysis. Qualifiers: Qualified Code(s): I26.99 - Other pulmonary embolism without acute cor pulmonale (4) Small cell lung cancer Current Visit: No Status: Acute Assessment and plan: Pt follows out pt with Dr. Schwab, will consult him per family request. (5) Esophagitis Current Visit: No Status: Acute Assessment and plan: Magic mouth wash, patient states this seemed to help in the past. (6) Pancytopenia due to antineoplastic chemotherapy Current Visit: No Status: Acute Assessment and plan: Will recheck CBC in am (7) Hemoptysis Current Visit: Yes Status: Acute Assessment and plan: Will hold off on anti coagulation for now. Will consult heme oncology to see. (8) COPD with acute exacerbation Current Visit: Yes Status: Acute Assessment and plan: Will place on nebs and steroids, continue with oxygen supplement. (9) Protein calorie malnutrition Current Visit: No Status: Acute Assessment and plan: Will place on regular diet for now. Pt may try shake supplement if she so wishes. Qualifiers: Protein-calorie malnutrition severity: moderate Qualified Code(s): E44.0 - Moderate protein-calorie malnutrition (10) Pneumonia Current Visit: No Status: Acute Assessment and plan: Possible PNA. Awaiting final results of CTA chest from [facility]. Will place on Levaquin and Vancomycin for now. Qualifiers: Pneumonia type: due to unspecified organism Laterality: right Lung location: unspecified part of lung Qualified Code(s): J18.9 - Pneumonia, unspecified organism - Time Spent With Patient Total time spent is greater than 50% in coordination of care (as documented) at patient's floor/unit and/or counseling patient: Greater than 35 minutes
[2018-04-30] MEDS ORDERED: Nitroglycerin 0.4 MG TAB.SUBL SL PRN (20:13)
[2018-04-30] MEDS ORDERED: MORPHINE SUL Oral CONC 10 MG/0.5 ML ORAL.SYG PO PRN (20:13)
[2018-04-30] MEDS ORDERED: amLODIPine 5 MG TABLET PO PRN (20:13)
[2018-04-30] MEDS ORDERED: *HR* OxyCODONE ER (12 HR) 10 MG TABLET PO SCH (20:15)
[2018-04-30] MEDS ORDERED: Naloxone 0.4 MG/ML INJ IVP PRN (20:42)
[2018-04-30] MEDS ORDERED: Acetaminophen 325 MG TABLET PO PRN (20:42)
[2018-04-30] MEDS: Mirtazapine 15 MG TABLET PO SCH (22:01)
[2018-04-30] MEDS: Magic Mouthwash 10 ML UD Cup PO SCH (22:01)
[2018-04-30] MEDS: Furosemide 40 MG/4 ML VIAL IVP SCH (22:02)
[2018-04-30] MEDS ORDERED: Chloraseptic Spray 177 ML BOTTLE MM PRN (22:33)
[2018-04-30] MEDS ORDERED: MORPHINE SUL Oral CONC 10 MG/0.5 ML ORAL.SYG SL PRN (22:33)
[2018-04-30] MEDS ORDERED: *HR* OxyCODONE ER (12 HR) 10 MG TABLET PO PRN (22:38)
[2018-04-30] MEDS: MORPHINE SUL Oral CONC 10 MG/0.5 ML ORAL.SYG SL PRN (22:51)
[2018-04-30] MEDS ORDERED: *HR* OxyCODONE Immed Rel 5 MG TABLET PO PRN (22:54)
[2018-04-30] MEDS: Budesonide/Formoterol 160/4.5 MDI IH SCH (23:04)
[2018-05-01] MEDS ORDERED: *HR* OxyCODONE ER (12 HR) 10 MG TABLET PO SCH
[2018-05-01 04:16] LABS: BUN/Creatinine Ratio 28 (6-26); Blood Urea Nitrogen 21 mg/dL (8-23); Calcium 8.3 mg/dL (8.6-10.3); Carbon Dioxide 28 mEq/L (23-29); Chloride 105 mEq/L (98-107); Glucose 139 mg/dL (70-105); Osmolality,Calculated 301 (280-300); Sodium 143 mEq/L (136-145); eGFR For African Americans > 60 (> 60); eGFR For Non-African Americans > 60 (> 60)
[2018-05-01 06:01] LABS: Hematocrit 23.5 % (35.3-44.9); Mean Corpuscular HGB Conc 31.9 g/dL (31.6-35.5); Mean Corpuscular Hemoglobin 28.7 pg (28.0-33.3); Mean Platelet Volume 10.3 fL (9.4-12.4); Red Blood Count 2.61 M/mcL (3.82-4.97); Red Cell Distribution Width 15.3 % (11.5-14.5)
[2018-05-01 06:18] LABS: Hemoglobin 7.5 g/dL (11.5-15.4); Platelet Count 131 K/mcL (140-400)
[2018-05-01] MEDS ORDERED: Magic Mouthwash 10 ML UD Cup PO SCH (07:30)
[2018-05-01] MEDS: Budesonide/Formoterol 160/4.5 MDI IH SCH ×2 (07:51→20:09)
[2018-05-01] MEDS: Furosemide 40 MG/4 ML VIAL IVP SCH ×2 (08:10→16:18)
[2018-05-01] MEDS: BuPROPion XL (24 HR) 150 MG TABLET PO SCH (09:08)
[2018-05-01] MEDS: Aspirin Enteric Coated 81 MG Tablet PO SCH (09:08)
[2018-05-01] MEDS: Levofloxacin 750 MG/150 ML 750 MG/150 ML BAG IVPB SCH ×2 (09:10→14:17)
[2018-05-01] MEDS: MORPHINE SUL Oral CONC 10 MG/0.5 ML ORAL.SYG SL PRN ×4 (09:16→23:07)
--- NOTE | 2018-05-01 10:43 | Palliative - Consult Note ---
<Winnie Calvillo - Last Filed: 05/01/18 11:14> Date of Encounter: 05/01/18 Time of Encounter: 10:40 - Assessment and Plan (1) Goals of care, counseling/discussion Current Visit: Yes Status: Acute Assessment and plan: Consulted oncology per family request. They would like to know the options for cancer treatment and how the treatment has been working. (2) Acute and chronic respiratory failure Current Visit: Yes Status: Acute Assessment and plan: due to NSTEMI, bilateral PE, possible PNA required non-rebreather/oxymask overnight, currently on NC Qualifiers: Respiratory failure complication: hypoxia Qualified Code(s): J96.21 - Acute and chronic respiratory failure with hypoxia (3) Small cell lung cancer Current Visit: No Status: Acute Assessment and plan: will await recommendations for further treatment from oncology (4) Acute pulmonary embolism Current Visit: Yes Status: Acute Assessment and plan: management per hospitalist continue supplemental oxygen Qualifiers: Pulmonary embolism type: other Acute cor pulmonale presence: without acute cor pulmonale Qualified Code(s): I26.99 - Other pulmonary embolism without acute cor pulmonale (5) Pneumonia Current Visit: No Status: Acute Assessment and plan: management per hospitalist currently on levaquin Qualifiers: Pneumonia type: due to unspecified organism Laterality: right Lung location: unspecified part of lung Qualified Code(s): J18.9 - Pneumonia, unspecified organism (6) NSTEMI (non-ST elevated myocardial infarction) Current Visit: Yes Status: Acute Assessment and plan: management per hospitalist (7) Esophagitis Current Visit: No Status: Acute Assessment and plan: has magic mouth wash available, which has helped in the past per nurse report, the pain is going all the way sub-sternal Palliative-CN HPI - Data of Consult Patient: new to practice Consult date: 05/01/18 Requesting Physician: Rudi Barber MD Primary Care Provider: Hebert Ryan Family Provider: Mounika Townsend MD - Consult Narrative Palliative Care/Comfort Measures: Hospice care Reason for consult: small cell lung ca w/mets, NSTEMI(acute), B/L PE(new), ?PNA , a/c resp fail History of present illness: Ms. Deng is a 72 year old female with a PMH of metastatic small cell lung cancer, radiation-induced esophagitis, pancytopenia due to chemotherapy, dCHF, COPD, CKD. She was seen at [facility] for shortness of breath and chest pain. Admitted to [facility] with NSTEMI, bilateral PE, and possible PNA. Hospice was consulted due to family request. The patient is in bed with son, daughter, and grandson at bedside. She reports that she wishes to speak to Dr. Schwab about the plan for further cancer treatments - she is unsure what the current plan is as she has not seen Dr. Schwab since she has been admitted this time. CC: Rudi Barber MD Past Med Surg Social Fam HX - Past Medical History Medical history: GERD, hyperlipidemia, hypertension, myocardial infarction, renal disease, thyroid disease Psychiatric history: no psych history - Past Surgical History Surgical History: angioplasty/stent - Social History Smoking Status: Former smoker Smokeless Tobacco Status: No Alcohol use: none Drug use: none - Family History Mother Family Member Ethnicity: Non- Living Status: Hx Family Cardiac Disorders: Yes (HTN) Hx Family Neurologic Disorders: Yes (CVA) Father Family Member Ethnicity: Non- Living Status: Hx Family Cardiac Disorders: Yes (Aneurysm) Hx Family Cancer: Yes (Colon) Brother Family Member Ethnicity: Non- Living Status: Hx Family Cancer: Yes Sister Family Member Ethnicity: Non- Living Status: Hx Family Cancer: Yes Medications and Allergies Aspirin [Adult Aspirin Regimen] 81 mg PO DAILY 02/25/18 [History] Levothyroxine [Synthroid] 50 mcg PO DAILY 02/25/18 [History] Nitroglycerin [Nitrostat] 0.4 mg SL Q5MIN PRN 02/25/18 [History] Pravastatin Sodium [Pravachol] 20 mg PO HS 02/25/18 [History] Sertraline [Zoloft] 150 mg PO DAILY 02/25/18 [History] buPROPion HCl [Bupropion HCl ER] 300 mg PO DAILY 02/25/18 [History] Mirtazapine [Remeron] 30 mg PO HS 02/26/18 [History] Oxycodone HCl [Oxycontin] 10 - 20 mg PO Q4H 30 Days #240 tab.er.12h 04/17/18 [Rx ] Albuterol Sulfate [Ventolin Hfa] 2 puff IH Q4-6H PRN 04/19/18 [History] Budesonide/Formoterol 160/4.5 [Symbicort 160/4.5] 2 puff IH BID 04/19/18 [ History] amLODIPine [Norvasc] 5 mg PO DAILY PRN 04/19/18 [History] MORPHINE SUL Oral CONC [Roxanol Oral Conc] 5 - 10 mg PO Q4H PRN 20 Days #120 oral.syg 04/27/18 [Rx] Metoprolol [Lopressor] 12.5 mg PO BID #60 tablet 04/27/18 [Rx] Omeprazole [PriLOSEC] 20 mg PO BIDAC #60 cap 04/27/18 [Rx] Sucralfate [Carafate] 1 gm PO QIDAC #1 udc 04/27/18 [Rx] 3 Allergy/AdvReac Type Severity Reaction Status Date / Time No Known Allergies Allergy Verified 04/09/18 08:04 Palliative Care-Exam - Constitutional Vitals: Temp Pulse Resp BP Pulse Ox 98.7 F 108 24 117/75 91 05/01/18 07:08 05/01/18 07:08 05/01/18 07:51 05/01/18 07:08 05/01/18 07:51 General appearance: Present: thin (frail) - Head Head Exam: Present: atraumatic, normocephalic - Eye Eye exam: Present: EOMI, normal appearance - ENT ENT exam: Present: mucous membranes dry - Neck Neck exam: Present: normal inspection - Respiratory Respiratory exam: Present: respiratory distress (mild), rhonchi (bilateral), tachypnea - Cardiovascular Cardiovascular exam: Present: RRR, +S1, +S2. Absent: systolic murmur - GI/Abdominal Exam GI/Abdominal exam: Present: normal bowel sounds, soft. Absent: distended, firm , guarding, tenderness - Neurological Exam Neurological exam: Present: alert, CN II-XII intact, no focal deficits. Absent : facial droop, speech deficit - Psychiatric Psychiatric exam: Present: normal affect, normal mood Internal Medicine - CN: Reslt - Labs CBC & Chem 7: 05/01/18 05:41 05/01/18 03:12 Labs: Short CBC 05/01/18 Range/Units 05:41 WBC 3.4 L (4.3-11.1) K/mcL Hgb 7.5 L D (11.5-15.4) g/dL Hct 23.5 L (35.3-44.9) % Plt Count 131 L D (140-400) K/mcL [facility] 05/01/18 03:12 Sodium 143 Potassium 3.0 L Chloride 105 Carbon Dioxide 28 BUN 21 Creatinine 0.76 Glucose 139 H Calcium 8.3 L Consult Discharge Plan - Plan Referrals: Hebert Ryan DO [Primary Care Provider] - Mounika Townsend MD [Family Provider] - Palliative Quality Palliative Quality: Screen for Code Status: Yes, Screen for Goals of Care: Yes, Screen for Pain: No, If Pain Regimen Started, Initiate Bowel Regimen: No, Screen for Nausea/Vomitting: No Code Status: 04/30/18 20:42 Resuscitation Status: Active [RES] Routine Comment: Resuscitation Status: DNR-Comfort Care <Sadnro Freeman - Last Filed: 05/01/18 12:20> Date of Encounter: 05/01/18 Palliative-CN HPI - Data of Consult Requesting Physician: Rudi Barber MD Primary Care Provider: Hebert Ryan Family Provider: Mounika Townsend MD - Consult Narrative History of present illness: Ms. Deng is a 72 year old female CC: Rudi Barber MD Palliative Care-Exam - Constitutional Vitals: Temp Pulse Resp BP Pulse Ox 100.0 F H 115 18 137/87 90 05/01/18 11:18 05/01/18 11:18 05/01/18 11:18 05/01/18 11:18 05/01/18 11:18 Internal Medicine - CN: Reslt - Labs CBC & Chem 7: 05/01/18 05:41 05/01/18 03:12 Labs: Short CBC 05/01/18 Range/Units 05:41 WBC 3.4 L (4.3-11.1) K/mcL Hgb 7.5 L D (11.5-15.4) g/dL Hct 23.5 L (35.3-44.9) % Plt Count 131 L D (140-400) K/mcL [facility] 05/01/18 03:12 Sodium 143 Potassium 3.0 L Chloride 105 Carbon Dioxide 28 BUN 21 Creatinine 0.76 Glucose 139 H Calcium 8.3 L - Attending Attestation I examined this patient and my medical decision-making was reviewed with the Resident Physician. I agree with the documented findings, disposition and treatment plan as described except to the extent set forth below. On discussion with patient's son and granddaughter, questions were answered. At this point family is awaiting discussion with oncology to decide on hospice care versus continuing cancer therapy and the other aggressive treatment she is undergoing. She has lost her IVs I have advised the nurses to assess the hospitalist regarding which over to liquid Augmentin. At nursing request I did verbalize the opioids, in the oxycodone to liquid and making it every 2 hours when necessary. I did discuss this at length with the family they are aware and appreciative. Of care will continue to follow if the patient wishes to go ahead and go with [facility] it can be arranged .. Palliative Quality Code Status: 04/30/18 20:42 Resuscitation Status: Active [RES] Routine Comment: Resuscitation Status: DNR-Comfort Care
[2018-05-01] MEDS: OXYCODONE Oral CONC 10 MG/0.5 ML ORAL.SYG SL PRN ×3 (12:18→21:31)
[2018-05-01] MEDS: Magic Mouthwash 10 ML UD Cup PO SCH ×3 (12:26→16:16)
--- NOTE | 2018-05-01 17:16 | Oncology Inp Consult Note ---
<Annmarie Lazo L - Last Filed: 05/02/18 07:24> Date of Encounter: 05/01/18 Time of Encounter: 14:00 Assessment and Plan (1) Small cell lung cancer Status: Acute Assessment and plan: S/P cycle #2 complicated by radiation induced esophagitis causing prior recent admission. Now admitted with NSTEMI and PE from [facility] Dr. Evans discussed with patient/family that cancer is otherwise under control at moment with re-staging scans needed in future following future cycles. Her treatment course has unfortunately been complicated by radiation indued esophagitis which will continue to take time to heal. Her intake has been decreased secondary to this. Discussed options could include a more aggressive treatment approach of her PE/ NSTEMI, with goal to pursue more palliative chemotherapy in future. Other options include less aggressive treatment approach with palliative measures and discharge home with hospice. At this time, patient and family request to discuss options to discharge home with hospice with the palliative care team, they understand that this option would not include further chemotherapy treatment. Patient is in mild distress and appears uncomfortable, moaning in bed, reporting mid sternal chest pain. Patient is requesting Hospice Care. Nurse was requested to give dose of pain medication. Dr. Evans will update Dr. Schwab. At this time, oncology will otherwise sign off and allow palliative care/ primary team to otherwise make arrangements for d/c home with hospice. Please refer to Dr. Evans's attestation below. 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 Definitive concurrent chemoradiotherapy with dose attenuated carboplatin and etoposide was initiated 03/21/2018. Unfortunately, she was found to have occult bone metastases on MRI of the abdomen and radiotherapy was then planned to stop early. She was recently admitted for radiation induced esophagitis which was pharmaceutically managed. Ms. Deng presented to [facility] for chest pain and EUNICE. She was hypoxic and placed on BiPAP temporarily which helped with her symptoms. She was found to have EKG changes and an elevated troponin, consistent with NSTEMI. She was also found to have small bilateral PE's, patient does report a recent history of hemoptysis. She was transferred to [facility] for further management and palliative care consultation. Palliative care has consulted with patient/family whom whish to speak with oncology regarding goals of care. Past Med Surg Social Fam HX - Past Medical History Medical history: GERD, hyperlipidemia, hypertension, myocardial infarction, renal disease, thyroid disease Psychiatric history: no psych history - Past Surgical History Surgical History: angioplasty/stent - Social History Smoking Status: Former smoker Smokeless Tobacco Status: No Alcohol use: none Drug use: none - Family History Mother Family Member Ethnicity: Non- Living Status: Hx Family Cardiac Disorders: Yes (HTN) Hx Family Neurologic Disorders: Yes (CVA) Father Family Member Ethnicity: Non- Living Status: Hx Family Cardiac Disorders: Yes (Aneurysm) Hx Family Cancer: Yes (Colon) Brother Family Member Ethnicity: Non- Living Status: Hx Family Cancer: Yes Sister Family Member Ethnicity: Non- Living Status: Hx Family Cancer: Yes Medications and Allergies Aspirin [Adult Aspirin Regimen] 81 mg PO DAILY 02/25/18 [History] Levothyroxine [Synthroid] 50 mcg PO DAILY 02/25/18 [History] Nitroglycerin [Nitrostat] 0.4 mg SL Q5MIN PRN 02/25/18 [History] Pravastatin Sodium [Pravachol] 20 mg PO HS 02/25/18 [History] Sertraline [Zoloft] 150 mg PO DAILY 02/25/18 [History] buPROPion HCl [Bupropion HCl ER] 300 mg PO DAILY 02/25/18 [History] Mirtazapine [Remeron] 30 mg PO HS 02/26/18 [History] Oxycodone HCl [Oxycontin] 10 - 20 mg PO Q4H 30 Days #240 tab.er.12h 04/17/18 [Rx ] Albuterol Sulfate [Ventolin Hfa] 2 puff IH Q4-6H PRN 04/19/18 [History] Budesonide/Formoterol 160/4.5 [Symbicort 160/4.5] 2 puff IH BID 04/19/18 [ History] amLODIPine [Norvasc] 5 mg PO DAILY PRN 04/19/18 [History] MORPHINE SUL Oral CONC [Roxanol Oral Conc] 5 - 10 mg PO Q4H PRN 20 Days #120 oral.syg 04/27/18 [Rx] Metoprolol [Lopressor] 12.5 mg PO BID #60 tablet 04/27/18 [Rx] Omeprazole [PriLOSEC] 20 mg PO BIDAC #60 cap 04/27/18 [Rx] Sucralfate [Carafate] 1 gm PO QIDAC #1 udc 04/27/18 [Rx] 3 Allergy/AdvReac Type Severity Reaction Status Date / Time No Known Allergies Allergy Verified 04/09/18 08:04 Constitutional: Present: anorexia, chills, fatigue, fever(s), weakness, weight loss Eyes: Absent: change in vision Nose, mouth and throat: Present: dysphagia, odynophagia Cardiovascular: Present: chest pain Respiratory: Present: dyspnea, hemoptysis Gastrointestinal: Absent: abdominal pain, nausea, vomiting Genitourinary: Absent: dysuria, hematuria Musculoskeletal: Present: muscle weakness Integumentary: Absent: wounds Neurological: Absent: focal weakness, frequent falls Hematologic/Lymphatic: Present: as per HPI Oncology - Exam - Constitutional Vitals: Temp Pulse Resp BP Pulse Ox 98.5 F 102 20 97/62 90 05/01/18 15:30 05/01/18 15:30 05/01/18 15:30 05/01/18 15:30 05/01/18 15:30 General appearance: no febrile Exam: mild distress, appears uncomfortable - Head Head exam: Present: atraumatic - ENT ENT exam: Present: mucous membranes moist - Respiratory Additional comments: crackles bases bilaterally - Cardiovascular Cardiovascular exam: Present: RRR, +S1, +S2, tachycardia - GI/Abdominal GI/Abdominal exam: Present: normal bowel sounds, soft. Absent: tenderness - Extremities Exam Extremities exam: Absent: calf tenderness - Neurological Exam Neurological exam: Present: alert, oriented X3, no focal deficits, strengths equal and symetr throughout - Psychiatric Psychiatric exam: Present: normal affect, normal mood - Skin Skin exam: Present: dry, intact, normal color, warm Oncology - Results Labs: 3 05/01/18 05/01/18 05:41 03:12 WBC 3.4 L RBC 2.61 L Hgb 7.5 L D Hct 23.5 L MCV 90.0 MCH 28.7 MCHC 31.9 RDW 15.3 H Plt Count 131 L D MPV 10.3 Sodium 143 Potassium 3.0 L Chloride 105 Carbon Dioxide 28 BUN 21 Creatinine 0.76 Est GFR ( Amer) > 60 Est GFR (Non-Af Amer) > 60 BUN/Creatinine Ratio 28 H Glucose 139 H Calculated Osmolality 301 H Calcium 8.3 L Consult Discharge Plan - Plan Referrals: Mounika Townsend MD [Family Provider] - Hebert Ryan DO [Primary Care Provider] - <Av Evans - Last Filed: 05/02/18 10:30> Date of Encounter: 05/01/18 - Data of Consult Requesting Physician: Rudi Barber MD Primary Care Provider: Hebert Ryan Family Provider: Mounika Townsend MD - Consult Narrative History of present illness: Ms. Deng is a 72 year old female Oncology - Exam - Constitutional Vitals: Temp Pulse Resp BP Pulse Ox 99.6 F 118 27 119/61 84 05/02/18 08:33 05/02/18 08:33 05/02/18 08:33 05/02/18 08:33 05/02/18 08:33 Oncology - Results Labs: 3 05/02/18 05/02/18 05/01/18 05:10 05:10 05:41 WBC 3.4 L 3.4 L RBC 2.85 L 2.61 L Hgb 8.2 L 7.5 L D Hct 25.9 L 23.5 L MCV 90.9 90.0 MCH 28.8 28.7 MCHC 31.7 31.9 RDW 15.7 H 15.3 H Plt Count 159 131 L D MPV 10.1 10.3 Sodium 145 Potassium 2.6 L Chloride 102 Carbon Dioxide 31 H BUN 20 Creatinine 0.75 Est GFR ( Amer) > 60 Est GFR (Non-Af Amer) > 60 BUN/Creatinine Ratio 27 H Glucose 103 Calculated Osmolality 303 H Calcium 8.4 L 3 05/01/18 03:12 WBC RBC Hgb Hct MCV MCH MCHC RDW Plt Count MPV Sodium 143 Potassium 3.0 L Chloride 105 Carbon Dioxide 28 BUN 21 Creatinine 0.76 Est GFR ( Amer) > 60 Est GFR (Non-Af Amer) > 60 BUN/Creatinine Ratio 28 H Glucose 139 H Calculated Osmolality 301 H Calcium 8.3 L - Attending Attestation Seen and examined patient and agree with assessment and plan. Patient with metastatic SCLC. She has had a significant decliune in performance status over the past week and she has significant pain issues from her esophagitis. she is not amenable to further treatment and would like comfot measures which I think is very reasonable. We will plan to consult palliaitve care and initiate hospice. Her son and granddaughter were also present and are in agreement wiht the plan.
--- NOTE | 2018-05-01 17:55 | Internal Med Progress Note ---
Date of Encounter: 05/01/18 Time of Encounter: 17:53 - Assessment and plan (1) Acute and chronic respiratory failure Current Visit: Yes Status: Acute Assessment and plan: {Pt seen by palliative care and plans are to admit patient to hospice house. Family requesting [facility]. Qualifiers: Respiratory failure complication: hypoxia Qualified Code(s): J96.21 - Acute and chronic respiratory failure with hypoxia (2) NSTEMI (non-ST elevated myocardial infarction) Current Visit: Yes Status: Acute Assessment and plan: Pt is DNRCC (3) Acute pulmonary embolism Current Visit: Yes Status: Acute Assessment and plan: DNRCC Qualifiers: Pulmonary embolism type: other Acute cor pulmonale presence: without acute cor pulmonale Qualified Code(s): I26.99 - Other pulmonary embolism without acute cor pulmonale (4) Small cell lung cancer Current Visit: No Status: Acute Assessment and plan: with metastatic disease (5) Esophagitis Current Visit: No Status: Acute (6) Pancytopenia due to antineoplastic chemotherapy Current Visit: No Status: Acute (7) Hemoptysis Current Visit: Yes Status: Acute (8) COPD with acute exacerbation Current Visit: Yes Status: Acute (9) Protein calorie malnutrition Current Visit: No Status: Acute Qualifiers: Protein-calorie malnutrition severity: moderate Qualified Code(s): E44.0 - Moderate protein-calorie malnutrition (10) Pneumonia Current Visit: No Status: Acute Qualifiers: Pneumonia type: due to unspecified organism Laterality: right Lung location: unspecified part of lung Qualified Code(s): J18.9 - Pneumonia, unspecified organism - Time Spent With Patient Total time spent is greater than 50% in coordination of care (as documented) at patient's floor/unit and/or counseling patient: 25 - 35 minutes - Subjective Interval history: Ms. Deng is a 72 year old female with past medical history of metastatic small cell lung cancer, COPD, CHF, esophagitis (radiation induced), pancytopenia due to anti-neoplastic. - Constitutional Vitals: Temp Pulse Resp BP Pulse Ox 98.5 F 102 20 97/62 90 05/01/18 15:30 05/01/18 15:30 05/01/18 15:30 05/01/18 15:30 05/01/18 15:30 General appearance: Present: A&O X 2, loss of weight. Absent: A&O X 3 Exam: cachexia - Head Head exam: Present: atraumatic, normocephalic - Eye Eye exam: Present: PERRL, conjuntiva pink, sclera anicteric Pupils: Present: PERRL - Neck Neck exam general surgery: Present: supple, trachea midline. Absent: lymphadenopathy - Respiratory Respiratory exam: Present: rhonchi. Absent: accessory muscle use, CTAB, rales, wheezes - Cardiovascular Cardiovascular exam: Present: RRR, +S1, +S2. Absent: diastolic murmur, gallop, rubs, systolic murmur - GI/Abdominal GI/Abdominal exam: Present: normal bowel sounds, soft, no peritoneal signs. Absent: distended, tenderness - Extremities Exam Extremities exam: Present: warm, radial pulses palpable and symmetrical. Absent : calf tenderness, cyanotic, pedal edema - Neurological Exam Neurological exam: Present: CN II-XII intact, oriented X3, no focal deficits. Absent: pronater drift, facial droop, speech deficit - Skin Skin exam: Present: dry, intact Internal Medicine: Result - Labs CBC & Chem 7: 05/01/18 05:41 05/01/18 03:12 Labs: Short CBC 05/01/18 Range/Units 05:41 WBC 3.4 L (4.3-11.1) K/mcL Hgb 7.5 L D (11.5-15.4) g/dL Hct 23.5 L (35.3-44.9) % Plt Count 131 L D (140-400) K/mcL BMP 05/01/18 03:12 Sodium 143 Potassium 3.0 L Chloride 105 Carbon Dioxide 28 BUN 21 Creatinine 0.76 Glucose 139 H Calcium 8.3 L - VTE Reasons for not Prescribing Prophylaxis: Medical contraindication Consult Discharge Plan - Plan Referrals: Mounika Townsend MD [Family Provider] - Hebert Ryan DO [Primary Care Provider] -
[2018-05-01] MEDS: Mirtazapine 15 MG TABLET PO SCH (21:42)
[2018-05-02] MEDS: MORPHINE SUL Oral CONC 10 MG/0.5 ML ORAL.SYG SL PRN (05:04)
[2018-05-02 05:46] LABS: Hematocrit 25.9 % (35.3-44.9); Hemoglobin 8.2 g/dL (11.5-15.4); Mean Corpuscular HGB Conc 31.7 g/dL (31.6-35.5); Mean Corpuscular Hemoglobin 28.8 pg (28.0-33.3); Mean Corpuscular Volume 90.9 fL (83.0-100.0); Mean Platelet Volume 10.1 fL (9.4-12.4); Platelet Count 159 K/mcL (140-400); Red Blood Count 2.85 M/mcL (3.82-4.97); Red Cell Distribution Width 15.7 % (11.5-14.5)
[2018-05-02 06:01] LABS: BUN/Creatinine Ratio 27 (6-26); Blood Urea Nitrogen 20 mg/dL (8-23); Calcium 8.4 mg/dL (8.6-10.3); Carbon Dioxide 31 mEq/L (23-29); Chloride 102 mEq/L (98-107); Glucose 103 mg/dL (70-105); Osmolality,Calculated 303 (280-300); Potassium 2.6 mEq/L (3.5-5.1); Sodium 145 mEq/L (136-145); eGFR For African Americans > 60 (> 60); eGFR For Non-African Americans > 60 (> 60)
[2018-05-02] MEDS: OXYCODONE Oral CONC 10 MG/0.5 ML ORAL.SYG SL PRN ×9 (08:10→20:29)
[2018-05-02] MEDS ORDERED: OXYCODONE Oral CONC 10 MG/0.5 ML ORAL.SYG SL ONE (08:30)
[2018-05-02] MEDS: Budesonide/Formoterol 160/4.5 MDI IH SCH (08:37)
[2018-05-02] MEDS ORDERED: *HR* FentaNYL PATCH 25 MCG PATCH TD SCH (09:15)
--- NOTE | 2018-05-02 09:39 | Palliative Progress Note ---
Date of Encounter: 05/02/18 Time of Encounter: 08:45 - Assessment and plan (1) Pain Current Visit: Yes Status: Acute Assessment and plan: Patient rates pain 9/10 during assessment. Altered pain medication regimen. Added Lidocaine patch and Fentanyl Patch. Changed Oxycodone to 20 mg PRN for moderate and 30 mg PRN for severe pain every 2 hours. Discontinued Roxanol. Requested Christine RN notify for further needs regarding pain control. 1100: Re-evaluated pain control, patient reports 5/10. Continue updated plan of care. (2) Esophagitis Current Visit: No Status: Acute Assessment and plan: Patient's mouth appears red, inflammed, and painful. Patient reports difficulty swallowing. Changed Magic Mouthwash to QID and informed nursing may coat mouth with swab instead of swish and swallow for improved comfort. (3) NSTEMI (non-ST elevated myocardial infarction) Current Visit: Yes Status: Acute Assessment and plan: Management by primary hospitalist. (4) Acute pulmonary embolism Current Visit: Yes Status: Acute Assessment and plan: Supplemental oxygen in place. Continued management per Primary hospitalist. Qualifiers: Pulmonary embolism type: other Acute cor pulmonale presence: without acute cor pulmonale Qualified Code(s): I26.99 - Other pulmonary embolism without acute cor pulmonale (5) Acute and chronic respiratory failure Current Visit: Yes Status: Acute Assessment and plan: Patient wearing oxymask during assessment. Patient reports making her feel better. Continue oxygen therapy at this time. Qualifiers: Respiratory failure complication: hypoxia Qualified Code(s): J96.21 - Acute and chronic respiratory failure with hypoxia (6) Goals of care, counseling/discussion Current Visit: Yes Status: Acute Assessment and plan: Currently working to optimize pain control prior to discharge planning. Previously known plan to discharge home with hospice; however, due to uncontrolled pain during am assessment unable to plan for discharge at this time. 1100: Spoke with family and patient at bedside. Family and patient agree patient will be discharged home tomorrow with [facility]. Will need Oxygen concentrator and Bed. 1130: Spoke with Louisa to notify of plan. Patient to be admitted at [facility] and Hospice provide transportation home. (7) Small cell lung cancer Current Visit: No Status: Acute Assessment and plan: Oncology recommendations appreciated. (8) Pneumonia Current Visit: No Status: Acute Assessment and plan: Patient currently ordered Levaquin. Continued management per primary hospitalist. Qualifiers: Pneumonia type: due to unspecified organism Laterality: right Lung location: unspecified part of lung Qualified Code(s): J18.9 - Pneumonia, unspecified organism - Time Spent With Patient Total time spent is greater than 50% in coordination of care (as documented) at patient's floor/unit and/or counseling patient: - Subjective Interval history: Patient sitting in bed, showing signs of anguish and not comfortable upon arrival. Two family members present at bedside. Patient reports pain 9/10 starting at her throat and travels to her right rib. Patient is described as a burning. Patient denies nausea/vomiting. Family reports that pain has been uncontrolled due to not having doses throughout the night. Palliative care received phone call from primary nurse reporting patient is in unbearable pain, additional one time dose of Oxycodone 10 mg given. Patient received 4 doses of Oxycodone and 5 doses of Roxanol over the last 24 hours. Family has requested improved pain control for patient. Now patient is stating "I just wish you all would let me ;" family reports they felt patient was getting better until she had the scope done and now she is much worse. Family acknowledges patient will not live forever, but hate to see her suffering. - Constitutional Vitals: Abnormal lab results WBC 3.4 K/mcL (4.3-11.1) L 05/02/18 05:10 RBC 2.85 M/mcL (3.82-4.97) L 05/02/18 05:10 Hgb 8.2 g/dL (11.5-15.4) L 05/02/18 05:10 Hct 25.9 % (35.3-44.9) L 05/02/18 05:10 RDW 15.7 % (11.5-14.5) H 05/02/18 05:10 Potassium 2.6 mEq/L (3.5-5.1) L 05/02/18 05:10 Carbon Dioxide 31 mEq/L (23-29) H 05/02/18 05:10 BUN/Creatinine Ratio 27 (6-26) H 05/02/18 05:10 Calculated Osmolality 303 (280-300) H 05/02/18 05:10 Calcium 8.4 mg/dL (8.6-10.3) L 05/02/18 05:10 General appearance: Present: severe distress, thin - Head Head exam: Present: atraumatic, normal inspection - Expanded Head Exam Head exam: Absent: general tenderness - Eye Eye exam: Present: normal appearance, PERRL Pupils: Present: normal accommodation, PERRL - ENT ENT exam: Present: mucous membranes dry, normal external ear exam (reddened/ inflamed). Absent: normal oropharynx - Neck Neck exam: Present: full ROM, normal inspection - Respiratory Respiratory exam: Present: rhonchi, wheezes. Absent: accessory muscle use, respiratory distress - Cardiovascular Cardiovascular exam: Present: RRR, +S1, +S2 - GI/Abdominal GI/Abdominal exam: Present: normal bowel sounds, soft. Absent: tenderness - Rectal Rectal exam: Present: deferred - Extremities Exam Extremities exam: Absent: calf tenderness, pedal edema - Expanded Upper Extremity Exam Hand wrist exam: Absent: full ROM, normal inspection - Neurological Exam Neurological exam: Present: alert, oriented X3, strengths equal and symetr throughout. Absent: altered - Psychiatric Psychiatric exam: Present: anxious - Skin Skin exam: Present: dry, intact Palliative Quality Palliative Quality: Screen for Code Status: Yes, Screen for Goals of Care: Yes, Screen for Pain: Yes, If Pain Regimen Started, Initiate Bowel Regimen: Yes, Screen for Nausea/Vomitting: Yes Code Status: 04/30/18 20:42 Resuscitation Status: Active [RES] Routine Comment: Resuscitation Status: DNR-Comfort Care - Labs CBC & Chem 7: 05/02/18 05:10 05/02/18 05:10 Labs: Laboratory Results - last 24 hr 05/02/18 05/02/18 05:10 05:10 WBC 3.4 L RBC 2.85 L Hgb 8.2 L Hct 25.9 L MCV 90.9 MCH 28.8 MCHC 31.7 RDW 15.7 H Plt Count 159 MPV 10.1 Sodium 145 Potassium 2.6 L Chloride 102 Carbon Dioxide 31 H BUN 20 Creatinine 0.75 Est GFR ( Amer) > 60 Est GFR (Non-Af Amer) > 60 BUN/Creatinine Ratio 27 H Glucose 103 Calculated Osmolality 303 H Calcium 8.4 L Consult Discharge Plan - Plan Referrals: Mounika Townsend MD [Family Provider] - Hebert Ryan DO [Primary Care Provider] -
[2018-05-02] MEDS: Magic Mouthwash 10 ML UD Cup PO SCH ×3 (09:43→20:29)
[2018-05-02] MEDS: Levofloxacin 750 MG/150 ML 750 MG/150 ML BAG IVPB SCH (09:52)
[2018-05-02] MEDS: Aspirin Enteric Coated 81 MG Tablet PO SCH (09:52)
[2018-05-02] MEDS: Furosemide 40 MG/4 ML VIAL IVP SCH ×2 (09:52→20:11)
[2018-05-02] MEDS: BuPROPion XL (24 HR) 150 MG TABLET PO SCH (09:53)
--- NOTE | 2018-05-02 12:58 | Oncology Inp Progress Note ---
Date of Encounter: 05/02/18 Time of Encounter: 14:30 (1) Small cell lung cancer Current Visit: No Status: Acute Assessment and plan: Unfortunately, she has declined clinically. She is no longer a candidate for further therapy. In addition, she is not interested in pursuing such. She is elected to proceed with hospice given her current performance status is completely reasonable. I reviewed this with the patient and her son are in the room today. They are at peace with this decision. Her pain is currently controlled and she is resting comfortably. She is DNR comfort care. Care is being transitioned to hospice. If there is anything I can do to help, do not hesitate to call my cell phone at [phone]. Oncology: Subj Interval history: Ms. Deng is not doing well. She is had a markedly decline in her overall health from when I saw her in the hospital this past Monday. She is now having significant difficulty with breathing. She is requiring facemask with high flow oxygen. Oral intake is minimal. Still with dysphagia and odynophagia. Chest wall pain remains problematic as well. She does not want to pursue further therapy and hospice is being planned - Constitutional Vitals: Vital Signs Temp Pulse Resp BP Pulse Ox 05/02/18 11:53 99.0 F 117 19 96/60 90 05/02/18 08:37 26 119/61 83 05/02/18 08:33 99.6 F 118 27 119/61 84 05/02/18 05:03 98.0 F 114 20 99/62 82 05/01/18 22:50 104 93/56 05/01/18 21:35 104/69 05/01/18 20:29 20 88 05/01/18 18:46 97.9 F 112 18 104/60 83 05/01/18 15:30 98.5 F 102 20 97/62 90 Intake and Output 05/02/18 05/02/18 05/02/18 00:59 08:59 16:59 Intake Total 120 / 120 120 / 120 0 / 0 Output Total 0 / 0 0 / 0 Balance 120 / 120 120 / 120 0 / 0 Intake: Oral 120 / 120 120 / 120 0 / 0 Output: Urine 0 / 0 0 / 0 Other: Meal Dinner Breakfast Percent of Meal Consumed 5% 0% Weight 56.3 kg General appearance: mild distress, thin - Head Head exam: Present: atraumatic, normal inspection, normocephalic - Eye Eye exam: Present: normal appearance, conjuntiva pink, sclera anicteric - ENT ENT exam: Present: mucous membranes moist, normal oropharynx - Neck Neck exam: Present: full ROM, normal inspection - Respiratory Respiratory exam: Present: chest wall tenderness, decreased breath sounds, respiratory distress - Cardiovascular Cardiovascular exam: Present: RRR - GI/Abdominal GI/Abdominal exam: Present: normal bowel sounds, soft - Extremities Exam Extremities exam: Present: normal inspection - Neurological Exam Neurological exam: Present: alert, CN II-XII intact, oriented X3, no focal deficits Oncology: Obj Data - Labs CBC & Chem 7: 05/02/18 05:10 05/02/18 05:10 Labs: Laboratory Results - last 24 hr 05/02/18 05/02/18 05:10 05:10 WBC 3.4 L RBC 2.85 L Hgb 8.2 L Hct 25.9 L MCV 90.9 MCH 28.8 MCHC 31.7 RDW 15.7 H Plt Count 159 MPV 10.1 Sodium 145 Potassium 2.6 L Chloride 102 Carbon Dioxide 31 H BUN 20 Creatinine 0.75 Est GFR ( Amer) > 60 Est GFR (Non-Af Amer) > 60 BUN/Creatinine Ratio 27 H Glucose 103 Calculated Osmolality 303 H Calcium 8.4 L Consult Discharge Plan - Plan Referrals: Mounika Townsend MD [Family Provider] - Hebert Ryan DO [Primary Care Provider] -
--- NOTE | 2018-05-02 16:09 | Internal Med Progress Note ---
Date of Encounter: 05/02/18 Time of Encounter: 16:06 - Assessment and plan (1) Acute and chronic respiratory failure Current Visit: Yes Status: Acute Assessment and plan: Patient being admitted to hospice for comfort measures. Qualifiers: Respiratory failure complication: hypoxia Qualified Code(s): J96.21 - Acute and chronic respiratory failure with hypoxia (2) Acute pulmonary embolism Current Visit: Yes Status: Acute Assessment and plan: Patient is DNRCC and intense management not warranted in that case. Provide comfort measures and O2 support as needed. Qualifiers: Pulmonary embolism type: other Acute cor pulmonale presence: without acute cor pulmonale Qualified Code(s): I26.99 - Other pulmonary embolism without acute cor pulmonale (3) Esophagitis Current Visit: No Status: Acute Assessment and plan: Many medications will be converted to suspension form as tolerated. (4) GERD (gastroesophageal reflux disease) Current Visit: No Status: Chronic Qualifiers: Esophagitis presence: without esophagitis Qualified Code(s): K21.9 - Gastro -esophageal reflux disease without esophagitis (5) HLD (hyperlipidemia) Current Visit: No Status: Chronic Qualifiers: Hyperlipidemia type: pure hypercholesterolemia Qualified Code(s): E78.00 - Pure hypercholesterolemia, unspecified; E78.0 - Pure hypercholesterolemia (6) HTN (hypertension) Current Visit: No Status: Chronic Assessment and plan: Currently hypotensive and tachycardic. Hold antihypertensives. Qualifiers: Hypertension type: essential hypertension Qualified Code(s): I10 - Essential (primary) hypertension (7) Hypothyroidism (acquired) Current Visit: No Status: Chronic (8) NSTEMI (non-ST elevated myocardial infarction) Current Visit: Yes Status: Acute Assessment and plan: DNR CC (9) Pancytopenia due to antineoplastic chemotherapy Current Visit: No Status: Acute (10) Protein calorie malnutrition Current Visit: No Status: Acute Qualifiers: Protein-calorie malnutrition severity: moderate Qualified Code(s): E44.0 - Moderate protein-calorie malnutrition (11) Small cell lung cancer Current Visit: No Status: Acute Assessment and plan: Patient is DNR CC plan is home with hospice which is pending set up - Time Spent With Patient Total time spent is greater than 50% in coordination of care (as documented) at patient's floor/unit and/or counseling patient: - Subjective Interval history: Patient has pain and shortness of breath which is some-what improving with medication. She has no other complaints for me at this moment. - Constitutional Vitals: Temp Pulse Resp BP Pulse Ox 98.3 F 115 17 93/58 83 05/02/18 15:07 05/02/18 15:07 05/02/18 15:07 05/02/18 15:07 05/02/18 15:07 General appearance: Present: disheveled, A&O X 3, loss of weight Exam: - Head Head exam: Present: atraumatic, normocephalic - Eye Eye exam: Present: PERRL, conjuntiva pink, sclera anicteric Pupils: Present: PERRL - Neck Neck exam general surgery: Present: supple, trachea midline. Absent: lymphadenopathy - Respiratory Respiratory exam: Present: rhonchi. Absent: accessory muscle use, CTAB, rales, wheezes - Cardiovascular Cardiovascular exam: Present: RRR, +S1, +S2. Absent: diastolic murmur, gallop, rubs, systolic murmur - GI/Abdominal GI/Abdominal exam: Present: normal bowel sounds, soft, no peritoneal signs. Absent: distended, tenderness - Extremities Exam Extremities exam: Present: warm, radial pulses palpable and symmetrical. Absent : calf tenderness, cyanotic, pedal edema - Neurological Exam Neurological exam: Present: CN II-XII intact, oriented X3, no focal deficits. Absent: pronater drift, facial droop, speech deficit - Skin Skin exam: Present: dry, intact Internal Medicine: Result - Labs CBC & Chem 7: 05/02/18 05:10 05/02/18 05:10 Labs: Short CBC 05/02/18 Range/Units 05:10 WBC 3.4 L (4.3-11.1) K/mcL Hgb 8.2 L (11.5-15.4) g/dL Hct 25.9 L (35.3-44.9) % Plt Count 159 (140-400) K/mcL BMP 05/02/18 05:10 Sodium 145 Potassium 2.6 L Chloride 102 Carbon Dioxide 31 H BUN 20 Creatinine 0.75 Glucose 103 Calcium 8.4 L - VTE Reasons for not Prescribing Prophylaxis: Medical contraindication Consult Discharge Plan - Plan Referrals: Mounika Townsend MD [Family Provider] - Hebert Ryan DO [Primary Care Provider] -
[2018-05-02] MEDS ORDERED: Ondansetron 4 MG/2 ML VIAL IVP PRN (19:15)
[2018-05-02] MEDS ORDERED: *HR* LORazepam 2 MG/ML VIAL IVP ONE (19:16)
[2018-05-02] MEDS ORDERED: *HR* LORazepam 0.5 MG TABLET PO ONE (20:00)
[2018-05-02] MEDS ORDERED: Ondansetron ODT 4 MG TAB.RAPDIS SL PRN (20:04)
[2018-05-02] MEDS: Mirtazapine 15 MG TABLET PO SCH (20:27)
[2018-05-02] MEDS: Amoxicillin/Clavulanate 400 MG/5 ML UDC PO SCH (20:28)
[2018-05-02] MEDS ORDERED: Potassium Chloride Elixir 20 MEQ/15 ML UDC PO SCH (21:00)
[2018-05-03] MEDS: OXYCODONE Oral CONC 10 MG/0.5 ML ORAL.SYG SL PRN ×5 (00:52→12:29)
[2018-05-03] MEDS: Amoxicillin/Clavulanate 400 MG/5 ML UDC PO SCH (05:16)
[2018-05-03 07:02] LABS: Hematocrit 23.3 % (35.3-44.9); Hemoglobin 7.2 g/dL (11.5-15.4); Mean Corpuscular HGB Conc 30.9 g/dL (31.6-35.5); Mean Platelet Volume 10.4 fL (9.4-12.4); Platelet Count 153 K/mcL (140-400); Red Blood Count 2.48 M/mcL (3.82-4.97); Red Cell Distribution Width 15.9 % (11.5-14.5)
[2018-05-03 07:24] LABS: Calcium 8.3 mg/dL (8.6-10.3); Potassium 3.3 mEq/L (3.5-5.1)
[2018-05-03] MEDS: Magic Mouthwash 10 ML UD Cup PO SCH (07:57)
--- NOTE | 2018-05-03 09:04 | Discharge Summary ---
<Houston Nugent - Last Filed: 05/03/18 09:51> Orders not resulted at time of discharge: Pending orders 04/30/18 20:54 UA w. reflex culture [Urinalysis Reflex Cult & Micro] [URIN] Routine Date of Encounter: 05/03/18 Time of Encounter: 08:50 - Discharge Diagnosis (1) NSTEMI (non-ST elevated myocardial infarction) Priority: Secondary Status: Acute (2) Acute pulmonary embolism Priority: Secondary Status: Acute Qualifiers: Pulmonary embolism type: other Acute cor pulmonale presence: without acute cor pulmonale Qualified Code(s): I26.99 - Other pulmonary embolism without acute cor pulmonale (3) Pancytopenia due to antineoplastic chemotherapy Priority: Secondary Status: Acute (4) Small cell lung cancer Priority: Secondary Status: Acute (5) HTN (hypertension) Priority: Secondary Status: Chronic Qualifiers: Hypertension type: essential hypertension Qualified Code(s): I10 - Essential (primary) hypertension (6) Hypothyroidism (acquired) Priority: Secondary Status: Chronic (7) HLD (hyperlipidemia) Priority: Secondary Status: Chronic Qualifiers: Hyperlipidemia type: pure hypercholesterolemia Qualified Code(s): E78.00 - Pure hypercholesterolemia, unspecified; E78.0 - Pure hypercholesterolemia (8) GERD (gastroesophageal reflux disease) Priority: Secondary Status: Chronic Qualifiers: Esophagitis presence: without esophagitis Qualified Code(s): K21.9 - Gastro -esophageal reflux disease without esophagitis (9) Esophagitis Priority: Secondary Status: Acute (10) Protein calorie malnutrition Priority: Secondary Status: Acute Qualifiers: Protein-calorie malnutrition severity: moderate Qualified Code(s): E44.0 - Moderate protein-calorie malnutrition (11) Acute and chronic respiratory failure Priority: Primary Status: Acute Qualifiers: Respiratory failure complication: hypoxia Qualified Code(s): J96.21 - Acute and chronic respiratory failure with hypoxia Hospital course: Ms. Deng is a 72 year old female with a PMH of metastatic small cell lung cancer, radiation-induced esophagitis, pancytopenia due to chemotherapy, dCHF, COPD, CKD. She was seen at [facility] for shortness of breath and chest pain. Admitted to [facility] with NSTEMI, bilateral PEs, and possible PNA. Initially started on Levaquin but this was discontinued with change in goals of care. Supplemental oxygen with oxymask continued for patient comfort. Hospice was consulted due to family request. Patient's code status was/is DNR-Comfort care. Patient initially having uncontrolled pain, palliative team adjusted regimen to help control this. Patient evaluated for hospice care by our palliative care team. Desired plan per patient and family is to go home with Hospice today. Discharge discussed with: patient, family, nurse - Time Spent with Patient Total time spent providing and/or coordinating discharge services: Less than 30 minutes - Discharge Medications Prescriptions: Hyoscyamine SL [Levsin SL] 0.125 mg SL Q4HR #16 tab.subl FentaNYL PATCH [Duragesic] 25 mcg TD Q72H 5 Days #2 patch.td72 Lidocaine Patch [Lidoderm 5% patch] 1 each TP DAILY #14 adh..patch LORazepam Oral Conc [Ativan Oral Conc] 1 mg PO Q3H PRN 7 Days #15 mls PRN Reason: anxiety/restlessness OXYCODONE Oral CONC [Oxycodone Oral Conc] 20 - 30 mg SL Q2H PRN 4 Days #30 oral.syg PRN Reason: Breakthrough pain/dyspnea Home Medications: Aspirin [Adult Aspirin Regimen] 81 mg PO DAILY 02/25/18 [History] Levothyroxine [Synthroid] 50 mcg PO DAILY 02/25/18 [History] Nitroglycerin [Nitrostat] 0.4 mg SL Q5MIN PRN 02/25/18 [History] Pravastatin Sodium [Pravachol] 20 mg PO HS 02/25/18 [History] Sertraline [Zoloft] 150 mg PO DAILY 02/25/18 [History] buPROPion HCl [Bupropion HCl ER] 300 mg PO DAILY 02/25/18 [History] Mirtazapine [Remeron] 30 mg PO HS 02/26/18 [History] Oxycodone HCl [Oxycontin] 10 - 20 mg PO Q4H 30 Days #240 tab.er.12h 04/17/18 [Rx ] Albuterol Sulfate [Ventolin Hfa] 2 puff IH Q4-6H PRN 04/19/18 [History] Budesonide/Formoterol 160/4.5 [Symbicort 160/4.5] 2 puff IH BID 04/19/18 [ History] amLODIPine [Norvasc] 5 mg PO DAILY PRN 04/19/18 [History] MORPHINE SUL Oral CONC [Roxanol Oral Conc] 5 - 10 mg PO Q4H PRN 20 Days #120 oral.syg 04/27/18 [Rx] Metoprolol [Lopressor] 12.5 mg PO BID #60 tablet 04/27/18 [Rx] Omeprazole [PriLOSEC] 20 mg PO BIDAC #60 cap 04/27/18 [Rx] Sucralfate [Carafate] 1 gm PO QIDAC #1 udc 04/27/18 [Rx] FentaNYL PATCH [Duragesic] 25 mcg TD Q72H 5 Days #2 patch.td72 05/03/18 [Rx] Hyoscyamine SL [Levsin SL] 0.125 mg SL Q4HR #16 tab.subl 05/03/18 [Rx] LORazepam Oral Conc [Ativan Oral Conc] 1 mg PO Q3H PRN 7 Days #15 mls 05/03/18 [ Rx] Lidocaine Patch [Lidoderm 5% patch] 1 each TP DAILY #14 adh..patch 05/03/18 [Rx] OXYCODONE Oral CONC [Oxycodone Oral Conc] 20 - 30 mg SL Q2H PRN 4 Days #30 oral.syg 05/03/18 [Rx] Allergies/Adverse Reactions: 3 Allergy/AdvReac Type Severity Reaction Status Date / Time No Known Allergies Allergy Verified 04/09/18 08:04 Date of admission: 04/30/18 20:42 Primary care physician: Hebert Ryan Consults: 04/30/18 21:23 Consult to Palliative Care [CONS] Routine Comment: Consulting Provider: [facility] Reason for Consult: small cell lung cancer with mets, NSTEMI (acute), B/L PE (new), ?PNA, acute on chronic repiratory failure Call Completed: No 05/01/18 10:31 Consult to Oncology Hematology [CONS] Stat Consulting Provider: Sandro Freeman Reason for Consult: Dr Schwab pt family request Call Completed: Yes Discharging clinician: Austin Alvarez Anticipated date of discharge: 05/03/18 - Constitutional Vitals: Temp Pulse Resp BP Pulse Ox 98.4 F 118 12 87/57 89 05/03/18 07:09 05/03/18 07:09 05/03/18 07:09 05/03/18 07:09 05/03/18 07:09 General appearance: Present: disheveled, A&O X 3, severe distress, loss of weight - Head Head exam: Present: atraumatic, normal inspection - Eye Eye exam: Present: normal appearance, sclera anicteric - ENT ENT exam: Present: mucous membranes dry - Neck Neck exam general surgery: Present: full ROM, normal inspection - Respiratory Respiratory exam: Present: decreased breath sounds. Absent: respiratory distress, stridor - Cardiovascular Cardiovascular exam: Present: RRR, +S1, +S2. Absent: gallop, rubs - GI/Abdominal GI/Abdominal exam: Present: soft. Absent: distended, guarding, tenderness - Neurological Exam Neurological exam: Present: alert, oriented X3, no focal deficits. Absent: speech deficit - Skin Skin exam: Present: dry, normal color, warm - Patient Status Disposition: Hospice - Home Condition: Serious Functional capacity at discharge: bed bound Overall status at discharge: patient is not back to baseline - Discharge Instructions Follow Up With: Mounika Townsend MD [Family Provider] - Hebert Ryan DO [Primary Care Provider] - Additional Instructions: Medications and any additional instructions to be provided by palliative care team. - Diet and Activity Activity: wear oxygen at all times Diet: advance to your usual diet - VTE Reasons for not Prescribing Prophylaxis: Medical contraindication <Austin Alvarez - Last Filed: 05/03/18 12:57> Orders not resulted at time of discharge: Pending orders 04/30/18 20:54 UA w. reflex culture [Urinalysis Reflex Cult & Micro] [URIN] Routine Date of Encounter: 05/03/18 - Discharge Diagnosis (1) HTN (hypertension) Status: Chronic Qualifiers: Hypertension type: essential hypertension Qualified Code(s): I10 - Essential (primary) hypertension (2) Hypothyroidism (acquired) Status: Chronic (3) HLD (hyperlipidemia) Status: Chronic Qualifiers: Hyperlipidemia type: pure hypercholesterolemia Qualified Code(s): E78.00 - Pure hypercholesterolemia, unspecified; E78.0 - Pure hypercholesterolemia (4) GERD (gastroesophageal reflux disease) Status: Chronic Qualifiers: Esophagitis presence: without esophagitis Qualified Code(s): K21.9 - Gastro -esophageal reflux disease without esophagitis (5) Small cell lung cancer Status: Acute (6) Esophagitis Status: Acute (7) Pancytopenia due to antineoplastic chemotherapy Status: Acute (8) Protein calorie malnutrition Status: Acute Qualifiers: Protein-calorie malnutrition severity: moderate Qualified Code(s): E44.0 - Moderate protein-calorie malnutrition (9) NSTEMI (non-ST elevated myocardial infarction) Status: Acute (10) Acute pulmonary embolism Status: Acute Qualifiers: Pulmonary embolism type: other Acute cor pulmonale presence: without acute cor pulmonale Qualified Code(s): I26.99 - Other pulmonary embolism without acute cor pulmonale (11) Acute and chronic respiratory failure Status: Acute Qualifiers: Respiratory failure complication: hypoxia Qualified Code(s): J96.21 - Acute and chronic respiratory failure with hypoxia Hospital course: Ms. Deng is a 72 year old female - Time Spent with Patient Total time spent providing and/or coordinating discharge services: Date of admission: 04/30/18 20:42 Primary care physician: Hebert Ryan Consults: 04/30/18 21:23 Consult to Palliative Care [CONS] Routine Comment: Consulting Provider: [facility] Reason for Consult: small cell lung cancer with mets, NSTEMI (acute), B/L PE (new), ?PNA, acute on chronic repiratory failure Call Completed: No 05/01/18 10:31 Consult to Oncology Hematology [CONS] Stat Consulting Provider: Sandro Freeman Reason for Consult: Dr Schwab pt family request Call Completed: Yes - Constitutional Vitals: Temp Pulse Resp BP Pulse Ox 97.6 F 131 14 94/61 86 05/03/18 12:44 05/03/18 12:44 05/03/18 12:44 05/03/18 12:44 05/03/18 12:44 - Attending Attestation I examined this patient and my medical decision-making was reviewed with the Resident Physician Dr. Nugent. I agree with the documented findings, disposition and treatment plan as described except to the extent set forth below. Ms. Deng is a 72 year old female with past medical history of metastatic small cell lung cancer, COPD, CHF, esophagitis (radiation induced), pancytopenia due to anti-neoplastic admitted here from [facility] for worsening shortness of breath, acute on chronic hypoxic resp failure and NSTEMI. Her condition seems to be worsening and over all very poor prognosis. Pt was seen by Heme Onc and Palliative care team here. Pt and family decide to take her home under home hospice care. Our palliative care team arranging for that. Chest: Diminished BS b/l , moderate wheezing. rhonchi. Heart : S1S2+ Sinus tachycardia.
--- NOTE | 2018-05-03 10:20 | Palliative Progress Note ---
Date of Encounter: 05/03/18 Time of Encounter: 09:10 - Assessment and plan (1) Cancer associated pain Current Visit: Yes Status: Acute Assessment and plan: Patients pain much better controlled today. Fentanyl patch/Lidoderm patches began yesterday. REquired Oxycodone 30 frequently yesterday to control pain, however, during the night, she was maintained with Oxycodone 20mg and went longer intervals without needing it, refused once. Family pleased with medication adjustments and state they are ready to take her home. (2) Goals of care, counseling/discussion Current Visit: Yes Status: Acute Assessment and plan: Can be discharged home today with [facility]. D/W Dr. Nugent and Dr. Alvarez. (3) Small cell lung cancer Current Visit: No Status: Acute (4) Emphysema of lung Current Visit: No Status: Chronic Qualifiers: Emphysema type: centrilobular Qualified Code(s): J43.2 - Centrilobular emphysema - Time Spent With Patient Total time spent is greater than 50% in coordination of care (as documented) at patient's floor/unit and/or counseling patient: - Subjective Interval history: Patient awake/alert - somewhat confused. Eating ice chips. Son/granddaughter at bedside. Stated she had a better night and pain controlled much better. Patient tells me she is comfortable at this time. - Constitutional Vitals: Abnormal lab results WBC 2.8 K/mcL (4.3-11.1) L 05/03/18 06:12 RBC 2.48 M/mcL (3.82-4.97) L 05/03/18 06:12 Hgb 7.2 g/dL (11.5-15.4) L 05/03/18 06:12 Hct 23.3 % (35.3-44.9) L 05/03/18 06:12 MCHC 30.9 g/dL (31.6-35.5) L 05/03/18 06:12 RDW 15.9 % (11.5-14.5) H 05/03/18 06:12 Potassium 3.3 mEq/L (3.5-5.1) L 05/03/18 06:12 Carbon Dioxide 31 mEq/L (23-29) H 05/03/18 06:12 BUN 30 mg/dL (8-23) H 05/03/18 06:12 Est GFR ( Amer) 54 (> 60) L 05/03/18 06:12 Est GFR (Non-Af Amer) 44 (> 60) L 05/03/18 06:12 Calculated Osmolality 306 (280-300) H 05/03/18 06:12 Calcium 8.3 mg/dL (8.6-10.3) L 05/03/18 06:12 Exam: Mild respiratory distress - Respiratory Respiratory exam: Present: decreased breath sounds - Cardiovascular Cardiovascular exam: Present: +S1, +S2, tachycardia - GI/Abdominal GI/Abdominal exam: Present: diminished bowel sounds, soft - Extremities Exam Extremities exam: Present: normal capillary refill, normal inspection - Neurological Exam Neurological exam: Present: strengths equal and symetr throughout Additional comments: Oriented to name and place. Answers some questions, follows simple commands - Skin Skin exam: Present: dry, pallor, warm Palliative Quality Palliative Quality: Screen for Code Status: Yes, Screen for Goals of Care: Yes, Screen for Pain: Yes, If Pain Regimen Started, Initiate Bowel Regimen: Yes, Screen for Nausea/Vomitting: Yes Code Status: 04/30/18 20:42 Resuscitation Status: Active [RES] Routine Comment: Resuscitation Status: DNR-Comfort Care - Labs CBC & Chem 7: 05/03/18 06:12 05/03/18 06:12 Labs: Laboratory Results - last 24 hr 05/03/18 05/03/18 06:12 06:12 WBC 2.8 L RBC 2.48 L Hgb 7.2 L Hct 23.3 L MCV 94.0 MCH 29.0 MCHC 30.9 L RDW 15.9 H Plt Count 153 MPV 10.4 Sodium 145 Potassium 3.3 L Chloride 104 Carbon Dioxide 31 H BUN 30 H Creatinine 1.20 Est GFR ( Amer) 54 L Est GFR (Non-Af Amer) 44 L BUN/Creatinine Ratio 25 Glucose 104 Calculated Osmolality 306 H Calcium 8.3 L Consult Discharge Plan - Plan Additional Instructions: Medications and any additional instructions to be provided by palliative care team. Referrals: Mounika Townsend MD [Family Provider] - Hebert Ryan DO [Primary Care Provider] - Prescriptions: Hyoscyamine SL [Levsin SL] 0.125 mg SL Q4HR #16 tab.subl FentaNYL PATCH [Duragesic] 25 mcg TD Q72H 5 Days #2 patch.td72 Lidocaine Patch [Lidoderm 5% patch] 1 each TP DAILY #14 adh..patch LORazepam Oral Conc [Ativan Oral Conc] 1 mg PO Q3H PRN 7 Days #15 mls PRN Reason: anxiety/restlessness OXYCODONE Oral CONC [Oxycodone Oral Conc] 20 - 30 mg SL Q2H PRN 4 Days #30 oral.syg PRN Reason: Breakthrough pain/dyspnea
[2018-05-03 12:46] VITALS: BP 94/61
--- NOTE | 2018-05-08 10:19 | Event Note ---
Date of Encounter: 05/08/18 Time of Encounter: 10:16 Hospice director [employer] certification of terminal illness: Hospice benefit. Start: 05/03/2018 Hospice benefit. In: +90 days Palliative performance scale: History: History of small cell lung cancer for which she is no longer eligible for therapy due to the overall decline in her health. So with severe emphysema. She does not wish to have any further aggressive therapy further oncology has given the opinion that there is no further therapy she would be eligible for any case. Therefore I believe that These findings support a life expectancy of 6 months or less. I attest that I have compose the above narrative based on my review of the patient's medical records, and or on my examination of the patient. Sandro Freeman M.D. Associate medical assistant. [facility]
== END 2018-05-03 12:58 | disposition hospice, home (50) | DRG 189 ==
LOC: 2NNU → SUATTDRO 20:42 → 3ANU 05-01 02:34
PROVIDERS: ADMIT Internal Medicine Cardiovascular Disease; ATTEND Family Medicine